=== PATIENT | male | born 1945 | race Caucasian/White ===

== ENCOUNTER → 2017-01-15 | Outpatient (CLI) | payer MEDICARE, OTHER ==
--- NOTE | 2017-01-15 12:40 | REP ---
REASON: Dyspnea. COMPARISON: None. Cardiomediastinal silhouette is within normal limits. Pleural angles are sharp. The frontal view of the chest shows no abnormality, however, seen only on the lateral view, there is a subtle nodular density seen superior to the anterior aspect of the diaphragmatic surfaces of the lungs measuring 3 cm difficult to evaluate by plain radiography. The osseous structures are within normal limits. IMPRESSION: Nodular density seen only on the lateral view as described above. The exact etiology is uncertain. It might represent a partial hiatal hernia, however, since there are no priors for comparison, CT examination of the chest is recommended. Signed by Jameel Abreu DO 01/15/2017 02:46 P
== END ==
LOC: M WUC 11:12
PROVIDERS: ATTEND Nurse Practitioner Adult Health
DX: R06.02 Shortness of breath (principal); R91.8 Other nonspecific abnormal finding of lung field

== ENCOUNTER → 2017-02-03 | Outpatient (REF) | payer MEDICARE, OTHER ==
[2017-02-03 18:24] LABS: ANION GAP 7 MEQ/L (8-16); BLOOD UREA NITROGEN 20 MG/DL (7-18); CALCIUM LEVEL 8.7 MG/DL (8.8-10.2); CARBON DIOXIDE LEVEL 35 MEQ/L (21-32); CHLORIDE LEVEL 98 MEQ/L (98-107); CREATININE FOR GFR 1.25 MG/DL (0.70-1.30); GLOMERULAR FILTRATION RATE > 60.0 (>42); GLUCOSE, FASTING 96 MG/DL (83-110); POTASSIUM SERUM 3.4 MEQ/L (3.5-5.1); SODIUM LEVEL 140 MEQ/L (136-145)
== END ==
LOC: M LABDRWCV 16:31
PROVIDERS: ATTEND Internal Medicine
DX: I10 Essential (primary) hypertension (principal)

== ENCOUNTER → 2017-02-05 | Outpatient (CLI) | payer MEDICARE, OTHER ==
[~2017-02-05] MED LIST: ISOVUE-370 76% 100ML VIAL (Q9967) As Ordered ONE
--- NOTE | 2017-02-05 17:23 | REP ---
CT CHEST WITH IV CONTRAST: TECHNIQUE: Axial contrast enhanced images from the thoracic inlet to the upper abdomen using 100 mL Isovue 370 intravenous contrast material with multiplanar reformations. FINDINGS: Scattered interstitial fibrotic changes are seen in the lungs without evidence of suspicious nodular opacity. No consolidating infiltrate is seen. The heart is not enlarged. Normal sized mediastinal and hilar lymph nodes are present. There are mild atherosclerotic calcifications of the thoracic aorta without aneurysm or dissection. There is a small hiatal hernia. This probably accounts for the density seen on the chest radiograph of 01/15/2017. The visualized upper abdominal structures are grossly unremarkable. IMPRESSION: No suspicious nodular opacity or adenopathy in the chest. Scattered interstitial fibrotic changes. Small hiatal hernia. Signed by Delon Mendez MD 02/08/2017 12:34 P
== END ==
LOC: M RAD 15:53
PROVIDERS: ATTEND Nurse Practitioner Adult Health
DX: R91.8 Other nonspecific abnormal finding of lung field (principal); R06.02 Shortness of breath; K44.9 Diaphragmatic hernia without obstruction or gangrene
CPT/HCPCS: 71260; Q9967

== ENCOUNTER → 2017-08-17 | Outpatient (REF) | payer MEDICARE, OTHER | LOC: M LAB REF 17:31 | PROVIDERS: ATTEND Internal Medicine | DX: R41.3 Other amnesia (principal) ==

== ENCOUNTER → 2017-09-27 | Outpatient (CLI) | payer MEDICARE, OTHER | LOC: M SLEEP 19:09 | DX: G47.419 Narcolepsy without cataplexy (principal) | CPT/HCPCS: 95811 ==

== ENCOUNTER → 2018-02-22 | Outpatient (CLI) | payer MEDICARE, OTHER | LOC: M WUC 12:10 | DX: R05 Cough (principal); K44.9 Diaphragmatic hernia without obstruction or gangrene | CPT/HCPCS: 71046 ==

== ENCOUNTER → 2018-08-18 | Outpatient (CLI) | payer MEDICARE, OTHER | LOC: M SMT 10:13 | DX: R06.02 Shortness of breath (principal) | CPT/HCPCS: 71046 ==

== ENCOUNTER 2018-12-24 13:26 | Observation (INO) | payer MEDICARE, OTHER ==
[~2018-12-24] VITALS: Ht 160 cm; Wt 80.4 kg
[2018-12-24] MEDS ORDERED: POTA1TAB14 PO (13:41)
[2018-12-24] MEDS ORDERED: PRAD150C6 PO (13:41)
[2018-12-24] MEDS ORDERED: DICL1GEL3 TOP (13:41)
[2018-12-24] MEDS ORDERED: MYRB25TA PO (13:41)
[2018-12-24] MEDS ORDERED: GLUCTAB6 PO (13:41)
[2018-12-24] MEDS ORDERED: SIMV40TA2 PO (13:41)
[2018-12-24] MEDS ORDERED: MODA100T13 PO (13:41)
[2018-12-24] MEDS ORDERED: [UNRECOGNIZED DRUG - OTHER] PO (13:41)
[2018-12-24] MEDS ORDERED: TORS20TA2 PO (13:41)
[2018-12-24] MEDS ORDERED: IPRATROPIUM 0.5MG/ALBUTEROL 2.5MG INH SOL UD 3ML (DUONEB)(J7620) NEB ONE ×2 (14:15→16:00)
[2018-12-24 14:40] LABS: ABG BASE EXCESS 2.7 (-2.0-2.0); ABG HCO3 25.3 MEQ/L (22.0-26.0); ABG O2 SATURATION 97.2 % (95.0-99.0); ABG PARTIAL PRESSURE CO2 32.9 mmHg (35.0-45.0); ABG PARTIAL PRESSURE O2 82.4 mmHg (75.0-100.0); ABG STANDARD HCO3 26.9 MEQ/L (22.0-26.0); ABG TOTAL CO2 26.3 MEQ/L (23.0-31.0); ABG pH (ARTERIAL) 7.503 UNITS (7.350-7.450)
[2018-12-24 14:43] LABS: BASO % 0.3 % (0.0-1.0); EOS # 0.1 10^3/uL (0.0-0.50); EOS % 0.8 % (0.0-3.0); LYMPH # 0.8 10^3/uL (1.5-4.5); LYMPH % 13.3 % (24.0-44.0); MEAN CORPUSCULAR HEMOGLOBIN 29.9 pg (27.0-33.0); MEAN CORPUSCULAR HGB CONC 33.3 g/dl (32.0-36.5); MEAN CORPUSCULAR VOLUME 89.8 fl (80.0-96.0); MONO # 1.1 10^3/uL (0.0-0.8); MONO % 17.6 % (0.0-5.0); NEUTROPHILS # 4.1 10^3/uL (1.8-7.7); NEUTROPHILS % 67.7 % (36.0-66.0); PLATELET COUNT, AUTOMATED 219 10^3/uL (150-450); RED BLOOD COUNT 5.01 10^6/uL (4.30-6.10); WHITE BLOOD COUNT 6.1 10^3/uL (4.0-10.0)
[2018-12-24 15:38] LABS: BLOOD UREA NITROGEN 20 MG/DL (7-18); CALCIUM LEVEL 8.4 MG/DL (8.8-10.2); CARBON DIOXIDE LEVEL 28 MEQ/L (21-32); CHLORIDE LEVEL 101 MEQ/L (98-107); CPK CREATINE PHOSPHOKINASE 130 U/L (39-308); CREATININE FOR GFR 1.25 MG/DL (0.70-1.30); GLOMERULAR FILTRATION RATE > 60.0 (>42); GLUCOSE, FASTING 90 MG/DL (70-100); MB/CK RELATIVE INDEX 1.53 (< OR =4); NT-PRO BNP 166 PG/ML (<125); POTASSIUM SERUM 4.2 MEQ/L (3.5-5.1); SODIUM LEVEL 137 MEQ/L (136-145); THYROID STIMULATING HORMONE 0.726 uIU/ML (0.358-3.740); TROPONIN I < 0.02 NG/ML (< 0.10)
[2018-12-24] MEDS ORDERED: OSELTAMIVIR PHOSPHATE 75 MG CAP (TAMIFLU) PO ONE (18:15)
[2018-12-24 18:38] VITALS: O2SAT 84
[2018-12-24] MEDS: IPRATROPIUM 0.5MG/ALBUTEROL 2.5MG INH SOL UD 3ML (DUONEB)(J7620) NEB SCH ×2 (18:40→18:49)
[2018-12-24] MEDS ORDERED: dexameTHASONE 20 MG/5 ML VIAL (J1100) IV ONE (18:45)
[2018-12-24] MEDS ORDERED: SM V PO (19:41)
[2018-12-24] MEDS ORDERED: [UNRECOGNIZED DRUG - CODE] PO (19:41)
[2018-12-24] MEDS ORDERED: APAP325T4 PO (19:44)
[2018-12-24] MEDS ORDERED: AREDS EYE VITAMINS PO (19:44)
[2018-12-24] MEDS ORDERED: CALC600T36 PO (19:44)
[2018-12-24] MEDS ORDERED: SIMVASTATIN 40 MG TAB PO SCH (21:00)
[2018-12-24] MEDS ORDERED: ACETAMINOPHEN TAB 650MG DOSE (2X325MG) PO PRN (21:15)
[2018-12-24] MEDS ORDERED: MOM 30ML SUSPENSION UDC PO PRN (21:15)
[2018-12-24 22:15] VITALS: BP 124/54
[2018-12-24] MEDS: DABIGATRAN ETEXILATE 75 MG CAP (PRADAXA) PO SCH (23:00)
[2018-12-24] MEDS: DEXTROMETHORPHAN 60MG/10ML SUSP 90ML BTL(DELSYM) PO SCH (23:01)
--- NOTE | 2018-12-25 04:53 | HPEPDOC ---
General Date of Admission Dec 24, 2018 at 20:19 Primary Care Physician: Jr Mason Collins Other Providers Neurologist: Dr. Lopez Swimming Coach: Dr. Conner [facility] in [place] Attending Physician: PETER MORRISON MD Chief Complaint The patient is a 72-year-old male admitted with a reason for visit of Influenza A. History of Present Illness 72-year-old male presents to the ER for 2 days of fever, chills, dry cough, generalized weakness. Temperature rechecked at home was 99.3. He has associated rhinorrhea, and sinus congestion. Denies any sick contacts, no changes, travel. He has been taking Tylenol at home with minimal relief. In the ER, he was administered DuoNeb 3, Decadron, and 1 dose of Tamiflu after his respiratory panel was positive for influenza A. Of note his ABG reveals 7.503/32.9/25.3. He'll be admitted for positive flu, continued weakness and dyspnea. Home Medications Scheduled Acetaminophen (Acetaminophen) 325 Mg Tablet, 650 MG PO BID, (Reported) Ascorbic Acid (Vitamin C) 500 Mg Tablet.er, 500 MG PO DAILY, (Reported) Calcium Carbonate (Calcium) 600 Mg Tablet, 600 MG PO DAILY, (Reported) Dabigatran Etexilate Mesylate (Pradaxa) 150 Mg Capsule, 150 MG PO BID, (Reported) Gluc Mcknight/Chondro Mcknight A/Vit C/Mn (Glucosamine Chondroitin Tab) 1 Each Tablet, 2 TAB PO DAILY, (Reported) Mirabegron (Myrbetriq) 25 Mg Tab.er.24h, 25 MG PO QHS, (Reported) Modafinil (Modafinil) 100 Mg Tablet, 100 MG PO BID, (Reported) TAKES 0800 AND 1200 Mv-Mins/Folic/Lycopene/Ginkgo (One-A-Day Men's 50 Plus Tablet) 1 Each Tablet, 1 TAB PO DAILY, (Reported) Potassium Chloride (Potassium Chloride) 20 Meq Tablet.er, 20 MEQ PO DAILY, (Reported) Simvastatin (Simvastatin) 40 Mg Tablet, 40 MG PO QHS, (Reported) Torsemide (Torsemide) 20 Mg Tablet, 20 MG PO DAILY, (Reported) [Areds 2 Eye Vitamins] , 1 TAB PO BID, (Reported) Scheduled PRN Diclofenac Sodium (Diclofenac Sodium) 1% 100GM Gel..gram., 2 GRAMS TOP BID PRN for PAIN, (Reported) APPLY 2 TO 4 GRAMS TO BACK AND KNEES Allergies Coded Allergies: No Known Allergies (Unverified , 12/24/18) Past Medical History Medical History Stroke 2012 without residual deficits Paroxysmal Afib Hyperlipidemia Overactive bladder Narcolepsy JULIETTE on CPAP Chronic lower extremity edema Spinal stenosis Degenerative disc disease Surgical History Bilateral cataracts Family History Father passed of brain tumor Mother passed of old age Social History Quit tobacco 30 years ago, smoked 1 PPD for 15 years Denies alcohol and illicit substances Lives at home with . 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 Denies weight loss ENT: Denies headaches, ear/eye pain, dysphagia Skin: Denies any rashes or lesions Pulmonary: Admits dry cough and short of breath, denies wheezing Cardiac: Denies chest pain, palpitations. Admits chronic LE edema GI: Denies nausea, vomiting, abdominal pain, changes in bowel : Admits overactive bladder MSK: Admits diffuse body aches and chronic low back pain Neurologic: Denies new numbness/tingling Physical Examination Other physical findings General exam: Alert and cooperative, A&O 3, NAD Eye exam: PERRLA, EOMI ENT: Atraumatic, normocephalic, dry membranes moist, no pharyngeal exudates. Sinus congestion and rhinorrhea present Neck: Supple, no JVD Cardiac: RRR, normal S1 & S2, no murmurs Respiratory: CTAB, good air exchange, no wheezing, rhonchi, or rales Abdomen: normoactive bowel sounds, soft, nontender, nondistended Extremity: 2+ radial pulses, trace edema b/l LE. No cyanosis or tenderness Skin: [place], warm, dry, no visible rash or lesions Neuro: Strength 5/5 x4, normal tone, normal speech, CN III-XII intact Psych: Normal mood and affect Vital Signs Vital Signs Date Time Temp Pulse Resp B/P (MAP) Pulse Ox O2 Delivery O2 Flow Rate FiO2 12/24/18 22:15 99.4 85 20 124/54 (77) 88 12/24/18 21:31 Room Air Laboratory Data Labs 24H Laboratory Tests 2 12/24/18 14:19: Blood Gas Bicarbonate Standard 26.9H, Arterial Blood pH 7.503H, Arterial Blood Partial Pressure CO2 32.9L, Arterial Blood Partial Pressure O2 82.4, Arterial Blood Total CO2 26.3, Arterial Blood HCO3 25.3, Arterial Blood Base Excess 2.7H, Arterial Blood Oxygen Saturation 97.2 12/24/18 14:27: Immature Granulocyte % (Auto) 0.3, White Blood Count 6.1, Red Blood Count 5.01, Hemoglobin 15.0, Hematocrit 45.0, Mean Corpuscular Volume 89.8, Mean Corpuscular Hemoglobin 29.9, Mean Corpuscular Hemoglobin Concent 33.3, Red Cell Distribution Width 12.3, Platelet Count 219, Neutrophils (%) (Auto) 67.7H, Lymphocytes (%) (Auto) 13.3L, Monocytes (%) (Auto) 17.6H, Eosinophils (%) (Auto) 0.8, Basophils (%) (Auto) 0.3, Neutrophils # (Auto) 4.1, Lymphocytes # (Auto) 0.8L, Monocytes # (Auto) 1.1H, Eosinophils # (Auto) 0.1, Basophils # (Auto) 0.0, Nucleated Red Blood Cells % (auto) 0.0, Anion Gap 8, Glomerular Filtration Rate > 60.0, Lactic Acid Level 1.5, Blood Urea Nitrogen 20H, Creatinine 1.25, Sodium Level 137, Potassium Level 4.2, Chloride Level 101, Carbon Dioxide Level 28, Calcium Level 8.4L, Total Creatine Kinase 130, Creatine Kinase MB 2.0, Creatine Kinase MB Relative Index 1.53, Troponin I < 0.02, EF-Nqn-O-Type Natriuretic Peptide 166H, Thyroid Stimulating Hormone (TSH) 0.726 CBC/BMP Laboratory Tests 12/24/18 14:27 Red Blood Count 5.01, Mean Corpuscular Volume 89.8, Mean Corpuscular Hemoglobin 29.9, Mean Corpuscular Hemoglobin Concent 33.3, Red Cell Distribution Width 12.3, Neutrophils (%) (Auto) 67.7 H, Lymphocytes (%) (Auto) 13.3 L, Monocytes (%) (Auto) 17.6 H, Eosinophils (%) (Auto) 0.8, Basophils (%) (Auto) 0.3, Neutrophils # (Auto) 4.1, Lymphocytes # (Auto) 0.8 L, Monocytes # (Auto) 1.1 H, Eosinophils # (Auto) 0.1, Basophils # (Auto) 0.0, Calcium Level 8.4 L, Total Creatine Kinase 130 Microbiology Microbiology 12/24/18 Blood Culture, Received Pending 12/24/18 Blood Culture, Received Pending 12/24/18 Respiratory Virus Panel (PCR) ([facility]) - Final, Complete Influenza A H3 Assessment/Plan Influenza A Fever, chills, dyspnea, cough, weakness for 2 days ABG reveals respiratory alkalosis s/p 1 dose Tamiflu in the ER. Continue for total 5 days Supportive care with antitussives Droplet precautions, encourage incentive spirometry Euvolemic on exam. BNP unremarkable. Vitals otherwise stable. Not requiring any supplemental oxygen. Monitor Normal white count. Blood cultures pending Paroxysmal A. fib Rate controlled without any meds. In NSR on admission Continue home Pradaxa Stroke 2012, Hyperlipidemia without residual deficits Continue home statin Overactive bladder may bring in home Myrbetriq Narcolepsy Continue home modafinil JULIETTE on CPAP Follow JULIETTE protocol and continue CPAP at night Chronic lower extremity edema Patient denies any previous cardiac history Trace edema on admission, euvolemic otherwise Continue home torsemide Spinal stenosis/Degenerative disc disease continue Tylenol DVT PPX: Chronically on Pradaxa DIET: Low-fat low-cholesterol DISPO: admit to hospitalist service. PT ordered. Plan / VTE VTE Prophylaxis Ordered?: Yes GME ATTESTATION GME ATTESTATION My faculty preceptor for this patient encounter was physically present during the encounter and was fully available. All aspects of the patient interview, examination, medical decision making process, and medical care plan development were reviewed and approved by the faculty preceptor. The faculty preceptor is aware and concurs with the plan as stated in the body of this note and will attest to such by his/her cosignature. CYDNEY WORTHINGTON DO Dec 25, 2018 04:53
[2018-12-25 06:00] VITALS: BP 163/95
[2018-12-25 06:29] LABS: HEMATOCRIT 43.2 % (42.0-52.0); HEMOGLOBIN 14.3 g/dl (13.5-17.5); MEAN CORPUSCULAR HEMOGLOBIN 29.6 pg (27.0-33.0); MEAN CORPUSCULAR HGB CONC 33.1 g/dl (32.0-36.5); MEAN CORPUSCULAR VOLUME 89.4 fl (80.0-96.0); PLATELET COUNT, AUTOMATED 213 10^3/uL (150-450); RED BLOOD COUNT 4.83 10^6/uL (4.30-6.10); WHITE BLOOD COUNT 4.4 10^3/uL (4.0-10.0)
[2018-12-25 06:45] LABS: CALCIUM LEVEL 8.7 MG/DL (8.8-10.2); CREATININE FOR GFR 1.26 MG/DL (0.70-1.30); GLOMERULAR FILTRATION RATE 59.7 (>42); MAGNESIUM LEVEL 2.2 MG/DL (1.8-2.4); POTASSIUM SERUM 3.8 MEQ/L (3.5-5.1)
[2018-12-25] MEDS ORDERED: MODAFINIL 100 MG TABLET PO SCH (08:00)
[2018-12-25] MEDS ORDERED: OSELTAMIVIR PHOSPHATE 75 MG CAP (TAMIFLU) PO SCH ×2 (09:00)
[2018-12-25] MEDS ORDERED: TORSEMIDE 20 MG TAB PO SCH (09:00)
--- NOTE | 2018-12-25 09:17 | REP ---
Portable chest, 02:13 p.m., single AP view, the patient is upright: Comparison is 08/18/2018. The lung salazar are clear. The cardiac size is normal. The ambreen, mediastinum, and skeletal structures are unremarkable. Impression: Negative portable chest. There is no interval change. Electronically Signed by Delon Gil MD 12/24/2018 02:46 P
[2018-12-25] MEDS: DABIGATRAN ETEXILATE 75 MG CAP (PRADAXA) PO SCH (09:18)
[2018-12-25] MEDS: DEXTROMETHORPHAN 60MG/10ML SUSP 90ML BTL(DELSYM) PO SCH (09:19)
[2018-12-25] MEDS ORDERED: OSEL75CA2 PO (10:45)
--- NOTE | 2018-12-25 10:50 | DS.PDOC ---
Discharge Summary General Date of Admission Dec 24, 2018 at 20:19 Date of Discharge 12/25/18 Attending Physician: ROSANGELA DÍAZ MD Discharge Summary PROCEDURES PERFORMED DURING STAY: [None]. ADMITTING DIAGNOSES: 1. Influenza A. 2. Afib 3. hx CVA 4. Overactive bladder 5. Narcolepsy 6. JULIETTE on CPAP DISCHARGE DIAGNOSES: 1. Influenza A. 2. Afib 3. hx CVA 4. Overactive bladder 5. Narcolepsy 6. JULIETTE on CPAP COMPLICATIONS/CHIEF COMPLAINT: Influenza A. HISTORY OF PRESENT ILLNESS: "72-year-old male presents to the ER for 2 days of fever, chills, dry cough, generalized weakness. Temperature rechecked at home was 99.3. He has associated rhinorrhea, and sinus congestion. Denies any sick contacts, no changes, travel. He has been taking Tylenol at home with minimal relief. In the ER, he was administered DuoNeb 3, Decadron, and 1 dose of Tamiflu after his respiratory panel was positive for influenza A. Of note his ABG reveals 7.503/32.9/25.3. He'll be admitted for positive flu, continued weakness and dyspnea." HOSPITAL COURSE: Patient is a 72-year-old male resented to ER with complaints of 2 days symptoms of fever, chills, cough and generalized weakness yesterday evening. In ER, patient was found to the positive for influenza a and was started on Tamiflu and supportive measures. Patient was admitted overnight and reported feeling very well this morning, denies any complaints and states that he feels much better and would like to go home today. He reports no longer having any symptoms and he came in with and does not feel that he still needs to stay in hospital. Will discharge patient to follow-up with PCP within one week and completed course of Tamiflu as outpatient. DISCHARGE MEDICATIONS: Please see below. ALLERGIES: Please see below. PHYSICAL EXAMINATION ON DISCHARGE: VITAL SIGNS: Please see below. General: No acute distress, Alert Eyes: Normal sclera, EOMI, LINDA HENT: Atraumatic, neck supple, moist mucous membranes Cardiovascular: Normal rate, normal rhythm. No murmurs appreciated. Pulmonary: Clear to auscultation b/l, no wheezing GI: Soft, nontender, nondistended Skin: Warm and dry Neuro: CN grossly intact. No focal deficits. Strengths equal b/l. Psych: oriented x 3 LABORATORY DATA: Please see below. IMAGING: CXR- Impression: Negative portable chest. There is no interval change. ACTIVITY: [As tolerated]. DIET: Regular diet DISCHARGE PLAN: f/u PCP within 1 week. Complete course of Tamifilu. DISPOSITION: Home. DISCHARGE INSTRUCTIONS: f/u PCP within 1 week. Complete course of Tamifilu. ITEMS TO FOLLOWUP ON ON OUTPATIENT: 1. None DISCHARGE CONDITION: [Stable]. TIME SPENT ON DISCHARGE: Greater than 30 minutes. Vital Signs/I&Os Vital Signs Date Time Temp Pulse Resp B/P (MAP) Pulse Ox O2 Delivery O2 Flow Rate FiO2 12/25/18 06:00 99.4 87 20 163/95 (117) 91 2.0 12/24/18 21:31 Room Air I&O- Last 24 Hours up to 6 AM 12/25/18 05:59 Intake Total 0 ml Output Total 300 ml Balance -300 ml Laboratory Data Labs 24H Laboratory Tests 2 12/24/18 14:19: Blood Gas Bicarbonate Standard 26.9H, Arterial Blood pH 7.503H, Arterial Blood Partial Pressure CO2 32.9L, Arterial Blood Partial Pressure O2 82.4, Arterial Blood Total CO2 26.3, Arterial Blood HCO3 25.3, Arterial Blood Base Excess 2.7H, Arterial Blood Oxygen Saturation 97.2 12/24/18 14:27: Immature Granulocyte % (Auto) 0.3, White Blood Count 6.1, Red Blood Count 5.01, Hemoglobin 15.0, Hematocrit 45.0, Mean Corpuscular Volume 89.8, Mean Corpuscular Hemoglobin 29.9, Mean Corpuscular Hemoglobin Concent 33.3, Red Cell Distribution Width 12.3, Platelet Count 219, Neutrophils (%) (Auto) 67.7H, Lymphocytes (%) (Auto) 13.3L, Monocytes (%) (Auto) 17.6H, Eosinophils (%) (Auto) 0.8, Basophils (%) (Auto) 0.3, Neutrophils # (Auto) 4.1, Lymphocytes # (Auto) 0.8L, Monocytes # (Auto) 1.1H, Eosinophils # (Auto) 0.1, Basophils # (Auto) 0.0, Nucleated Red Blood Cells % (auto) 0.0, Anion Gap 8, Glomerular Filtration Rate > 60.0, Lactic Acid Level 1.5, Blood Urea Nitrogen 20H, Creatinine 1.25, Sodium Level 137, Potassium Level 4.2, Chloride Level 101, Carbon Dioxide Level 28, Calcium Level 8.4L, Total Creatine Kinase 130, Creatine Kinase MB 2.0, Creatine Kinase MB Relative Index 1.53, Troponin I < 0.02, LP-Cnu-P-Type Natriuretic Peptide 166H, Thyroid Stimulating Hormone (TSH) 0.726 12/25/18 06:08: Nucleated Red Blood Cells % (auto) 0.0, Anion Gap 9, Glomerular Filtration Rate 59.7, Blood Urea Nitrogen 22H, Creatinine 1.26, Sodium Level 138, Potassium Level 3.8, Chloride Level 103, Carbon Dioxide Level 26, Calcium Level 8.7L, Magnesium Level 2.2 CBC/BMP Laboratory Tests 12/24/18 14:27 Red Blood Count 5.01, Mean Corpuscular Volume 89.8, Mean Corpuscular Hemoglobin 29.9, Mean Corpuscular Hemoglobin Concent 33.3, Red Cell Distribution Width 12.3, Neutrophils (%) (Auto) 67.7 H, Lymphocytes (%) (Auto) 13.3 L, Monocytes (%) (Auto) 17.6 H, Eosinophils (%) (Auto) 0.8, Basophils (%) (Auto) 0.3, Neutrophils # (Auto) 4.1, Lymphocytes # (Auto) 0.8 L, Monocytes # (Auto) 1.1 H, Eosinophils # (Auto) 0.1, Basophils # (Auto) 0.0, Calcium Level 8.4 L, Total Creatine Kinase 130 12/25/18 06:08 Red Blood Count 4.83, Mean Corpuscular Volume 89.4, Mean Corpuscular Hemoglobin 29.6, Mean Corpuscular Hemoglobin Concent 33.1, Red Cell Distribution Width 12.3, Calcium Level 8.7 L Microbiology Microbiology 12/24/18 Blood Culture, Received Pending 12/24/18 Blood Culture, Received Pending 12/24/18 Respiratory Virus Panel (PCR) ([facility]) - Final, Complete Influenza A H3 Discharge Medications Scheduled Acetaminophen (Acetaminophen) 325 Mg Tablet, 650 MG PO BID, (Reported) Ascorbic Acid (Vitamin C) 500 Mg Tablet.er, 500 MG PO DAILY, (Reported) Calcium Carbonate (Calcium) 600 Mg Tablet, 600 MG PO DAILY, (Reported) Dabigatran Etexilate Mesylate (Pradaxa) 150 Mg Capsule, 150 MG PO BID, (Reported) Gluc Mcknight/Chondro Mcknight A/Vit C/Mn (Glucosamine Chondroitin Tab) 1 Each Tablet, 2 TAB PO DAILY, (Reported) Mirabegron (Myrbetriq) 25 Mg Tab.er.24h, 25 MG PO QHS, (Reported) Modafinil (Modafinil) 100 Mg Tablet, 100 MG PO BID, (Reported) TAKES 0800 AND 1200 Mv-Mins/Folic/Lycopene/Ginkgo (One-A-Day Men's 50 Plus Tablet) 1 Each Tablet, 1 TAB PO DAILY, (Reported) Oseltamivir Phosphate (Oseltamivir Phosphate) 75 Mg Capsule, 75 MG PO BID Potassium Chloride (Potassium Chloride) 20 Meq Tablet.er, 20 MEQ PO DAILY, (Reported) Simvastatin (Simvastatin) 40 Mg Tablet, 40 MG PO QHS, (Reported) Torsemide (Torsemide) 20 Mg Tablet, 20 MG PO DAILY, (Reported) [Areds 2 Eye Vitamins] , 1 TAB PO BID, (Reported) Scheduled PRN Diclofenac Sodium (Diclofenac Sodium) 1% 100GM Gel..gram., 2 GRAMS TOP BID PRN for PAIN, (Reported) APPLY 2 TO 4 GRAMS TO BACK AND KNEES Allergies Coded Allergies: No Known Allergies (Unverified , 12/24/18) ROSANGELA DÍAZ MD Dec 25, 2018 10:50
--- NOTE | 2018-12-25 20:48 | ECGEPIP ---
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
== END 2018-12-25 11:24 | disposition home or self-care (01) ==
LOC: M ED 13:26 → M ED INP 20:19 → M MSPAV 22:15
PROVIDERS: ADMIT Internal Medicine; ATTEND Internal Medicine
DX: J10.1 Influenza due to other identified influenza virus with other respiratory manifestations (principal); I48.0 Paroxysmal atrial fibrillation; Z86.73 Personal history of transient ischemic attack (TIA), and cerebral infarction without residual deficits; N32.81 Overactive bladder; G47.411 Narcolepsy with cataplexy; G47.33 Obstructive sleep apnea (adult) (pediatric); E78.49 Other hyperlipidemia; M48.061 Spinal stenosis, lumbar region without neurogenic claudication; R60.0 Localized edema; Z79.899 Other long term (current) drug therapy
CPT/HCPCS: 36415; 36600; 71045; 80048; 82550; 82553; 82803; 83605; 83735; 83880; 84443; 84484; 85025; 85027; 87040; 87486; 87581; 87633; 87798; 93005; 93041; 94640; 96374; 97161; 99285; G0378; J1100

== ENCOUNTER → 2019-08-08 | Outpatient (CLI) | payer MEDICARE, OTHER ==
[~2019-08-08] MED LIST changes: +APAP325T4 PO; +AREDS EYE VITAMINS PO; +CALC600T36 PO; +DICL1GEL3 TOP; +FLOM0.4C39 PO; +GLUCTAB6 PO; -ISOVUE-370 76% 100ML VIAL (Q9967) As Ordered ONE; +LEXA1TAB PO; +MODA100T13 PO; +MYRB25TA PO; +OSEL75CA2 PO; +POTA1TAB14 PO; +PRAD150C6 PO; +SIMV40TA20 PO; +SM V PO; +TORS20TA2 PO; +[UNRECOGNIZED DRUG - CODE] PO; +[UNRECOGNIZED DRUG - OTHER] PO
== END ==
LOC: M LAB 13:20
PROVIDERS: ATTEND Nurse Practitioner
DX: N40.1 Benign prostatic hyperplasia with lower urinary tract symptoms (principal)

== ENCOUNTER 2019-08-13 10:32 | Emergency (ER) | payer MEDICARE, OTHER ==
[~2019-08-13] VITALS: Ht 167.6 cm; Wt 81.8 kg
[~2019-08-13 10:32] MED LIST changes: -FLOM0.4C39 PO; -LEXA1TAB PO
[2019-08-13 11:15] LABS: VENOUS HCO3 30.6 MEQ/L (23.0-27.0); VENOUS O2 SATURATION 55.5 % (60.0-80.0); VENOUS PARTIAL PRESSURE CO2 53.4 mmHg (38.0-50.0); VENOUS PARTIAL PRESSURE O2 27.8 mmHg (30.0-50.0); VENOUS PH 7.376 UNITS (7.330-7.430); VENOUS STANDARD HCO3 26.8 MEQ/L; VENOUS TOTAL CO2 32.2 MEQ/L (24.0-28.0)
[2019-08-13 11:19] LABS: BASO % 0.3 % (0.0-1.0); EOS # 0.2 10^3/uL (0.0-0.5); EOS % 2.7 % (0.0-3.0); HEMATOCRIT 46.3 % (42.0-52.0); HEMOGLOBIN 14.9 g/dl (13.5-17.5); LYMPH % 16.3 % (24.0-44.0); MEAN CORPUSCULAR HEMOGLOBIN 30.9 pg (27.0-33.0); MEAN CORPUSCULAR HGB CONC 32.2 g/dl (32.0-36.5); MEAN CORPUSCULAR VOLUME 96.1 fl (80.0-96.0); MONO # 0.7 10^3/uL (0.0-0.8); MONO % 10.9 % (0.0-5.0); NEUTROPHILS # 4.3 10^3/uL (1.5-8.5); NEUTROPHILS % 69.5 % (36.0-66.0); PLATELET COUNT, AUTOMATED 229 10^3/uL (150-450); RED BLOOD COUNT 4.82 10^6/uL (4.30-6.10); WHITE BLOOD COUNT 6.3 10^3/uL (4.0-10.0)
[2019-08-13 11:51] LABS: ALT/SGPT 44 U/L (12-78); BILIRUBIN,DIRECT 0.1 MG/DL (0.0-0.2); BILIRUBIN,TOTAL 0.5 MG/DL (0.2-1.0); BLOOD UREA NITROGEN 24 MG/DL (7-18); CALCIUM LEVEL 9.1 MG/DL (8.8-10.2); CARBON DIOXIDE LEVEL 31 MEQ/L (21-32); CHLORIDE LEVEL 105 MEQ/L (98-107); CK-MB VALUE MASS 3.2 NG/ML (<3.6); CPK CREATINE PHOSPHOKINASE 134 U/L (39-308); CREATININE FOR GFR 1.24 MG/DL (0.70-1.30); GLOMERULAR FILTRATION RATE > 60.0 (>42); GLUCOSE, FASTING 84 MG/DL (70-100); MB/CK RELATIVE INDEX 2.39 (< OR =4); POTASSIUM SERUM 4.4 MEQ/L (3.5-5.1); SODIUM LEVEL 143 MEQ/L (136-145); THYROID STIMULATING HORMONE 0.807 uIU/ML (0.358-3.740); TOTAL PROTEIN 7.2 GM/DL (6.4-8.2); TROPONIN I < 0.02 NG/ML (< 0.10)
[2019-08-13] MEDS ORDERED: LEXA1TAB PO (12:22)
[2019-08-13] MEDS ORDERED: FLOM0.4C39 PO (12:22)
--- NOTE | 2019-08-13 12:26 | REP ---
CT BRAIN WITHOUT CONTRAST: 08/13/2019. COMPARISON: MRI 08/14/2013. CLINICAL HISTORY: Altered mental status. FINDINGS: Soft-tissue and bone windows reviewed for each slice level. There is some progression of ventriculomegaly with the lateral ventricles now with a 49 mm bifrontal transverse diameter, 43 mm on the MR 6 years ago. There is no midline shift. There is no intraparenchymal hemorrhage. Third and fourth ventricles also seen with the proportionate size of those ventricles to the diffuse atrophy. That atrophy is mild to moderately severe with slight progression and is greatest in the temporal lobes with increased prominence of the sylvian fissure. However, there are is atrophy of the frontal, parietal, and temporal lobes, as well as occipital lobes to a lesser extent but still significant. Diffuse atrophy of the cortex without vascular territory infarct, intracranial hemorrhage, or extra-axial fluid collections. The us-white junction differentiation is maintained, but there are heterogeneous low attenuation white matter changes representing small-vessel ischemic disease. Basal ganglia were symmetric. Posterior fossa shows the brainstem intact. Cerebellum shows some atrophy but no mass or acute infarct. Basal cisterns are intact. Mastoids and visualized sinuses are clear. The calvarium and skull base show no fracture or focal lesion. Orbits seen in limited fashion but symmetric for those portions seen. IMPRESSION: 1. Ventriculomegaly slightly increased from the prior study of 2012 with proportionate diffuse cerebral atrophy. No midline shift, intra- or extra-axial hemorrhage, intraventricular hemorrhage, mass, or mass effect. No acute infarct. 2. Chronic small vessel white matter ischemic changes. 3. Skull base, calvarium, sinuses, and mastoids without acute findings. Electronically Signed by Tutu Bradford MD 08/13/2019 05:10 P
[2019-08-13 14:00] VITALS: BP 134/77
--- NOTE | 2019-08-14 16:41 | ECGEPIP ---
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
--- NOTE | 2019-08-14 16:52 | ED PDOC ---
Post-Departure Follow-Up dr lewis and dr pa faxed fomral report of ct head for fu Ciara Fowler MD Aug 14, 2019 16:52
== END 2019-08-13 14:20 | disposition home or self-care (01) ==
LOC: M ED 10:32
DX: F51.5 Nightmare disorder (principal); R40.4 Transient alteration of awareness; I48.91 Unspecified atrial fibrillation; E78.5 Hyperlipidemia, unspecified; Z86.73 Personal history of transient ischemic attack (TIA), and cerebral infarction without residual deficits; G47.33 Obstructive sleep apnea (adult) (pediatric); G47.419 Narcolepsy without cataplexy; M48.00 Spinal stenosis, site unspecified; Z87.891 Personal history of nicotine dependence; Z79.899 Other long term (current) drug therapy

== ENCOUNTER → 2020-02-12 | Outpatient (CLI) | payer MEDICARE, OTHER ==
[~2020-02-12] MED LIST changes: +FLOM0.4C39 PO; +LEXA1TAB PO
== END ==
LOC: M LAB 10:31
PROVIDERS: ATTEND Nurse Practitioner
DX: N40.1 Benign prostatic hyperplasia with lower urinary tract symptoms (principal)
CPT/HCPCS: 36415; G0103

== ENCOUNTER → 2020-04-09 | Outpatient (REF) | payer MEDICARE, OTHER ==
[2020-05-22 10:49] LABS: FOLATE > 24.0 NG/ML; VITAMIN B12 LEVEL 497 PG/ML
== END ==
LOC: M LAB REF 16:57
PROVIDERS: ATTEND Internal Medicine
DX: R41.81 Age-related cognitive decline (principal); Z86.73 Personal history of transient ischemic attack (TIA), and cerebral infarction without residual deficits

== ENCOUNTER → 2020-12-27 | Outpatient (CLI) | payer MEDICARE, OTHER ==
--- NOTE | 2020-12-27 10:12 | REP ---
INDICATION: OTHER SPECIFIED DISORDERS OF BRAIN. COMPARISON: Head CT 08/13/2019. TECHNIQUE: Axial CT images with multiplanar reformations. FINDINGS: No acute bleed or acute large vessel territorial infarct. The ventricular system is prominent. No extra-axial collections. When compared to prior study of 08/13/2019 the ventricular system may be increased in size. On prior study the transverse 3rd ventricle had measured approximately 12.2 mm today measures 13.2 mm. This may represent a measurement error of head position and/or slice acquisition. There appears to be diffuse volume loss with prominence of the sylvian fissures. IMPRESSION: No acute findings. Ventriculomegaly and questionable hydrocephalus. Ventriculomegaly is stable to slightly increased when compared to the prior study of 08/13/2019. <Electronically signed by Osvaldo Anders > 12/27/20 [id number]
== END ==
LOC: M RAD 09:25
PROVIDERS: ATTEND Neurological Surgery
DX: G93.89 Other specified disorders of brain (principal)

== ENCOUNTER → 2021-05-02 | Outpatient (CLI) | payer MEDICARE, OTHER ==
--- NOTE | 2021-05-04 11:46 | REPVR ---
PROCEDURE INFORMATION: Exam: MR Lumbar Spine Without Contrast Exam date and time: 05/02/2021 7:03 PM Age: 75 years old Clinical indication: Low back pain; Additional info: Lbp TECHNIQUE: Imaging protocol: Multiplanar magnetic resonance images of the lumbar spine without intravenous contrast. COMPARISON: No relevant prior studies available. FINDINGS: Vertebrae: There is a lumbar levo scoliotic curvature. There is 3 mm of grade 1 retrolisthesis of L2 with respect to L3. There is 4 mm of grade 1 retrolisthesis of L5 with respect to S1. There is severe multilevel intervertebral disc space loss, with endplate signal changes. There are multilevel hemangiomas extending into the L4 facets and posterior elements.. Spinal cord: The conus medullaris terminates at L1/2. The patient has a congenitally narrowed spinal canal. L1-L2: There is diffuse disc bulging. There is shqz-hc-afbnrwez facet and ligamentous hypertrophy. There is mild to moderate canal stenosis. There is mild right and moderate to severe left neural foraminal narrowing. L2-L3: There is a diffuse disc osteophyte complex/uncovering related to listhesis. There is aukt-uj-bymncwaa facet hypertrophy. There is moderate canal stenosis. There is moderate to severe right neural foraminal narrowing. L3-L4: There is a diffuse disc osteophyte complex. There is moderate facet hypertrophy. There is severe canal stenosis, with central clumping of nerve roots. There is severe right and moderate left neural foraminal narrowing. L4-L5: There is a diffuse disc bulge. There is moderate to severe facet hypertrophy asymmetric to the left. There is moderate canal stenosis. There is mild right and moderate left neural foraminal narrowing. L5-S1: There is a diffuse disc osteophyte complex/uncovering related to listhesis. There is moderate right and severe left facet hypertrophy. There is moderate right and severe left neural foraminal narrowing. Soft tissues: Unremarkable. IMPRESSION: Degenerative disc disease and spondylosis in a background of scoliosis and congenital narrowing of the spinal canal. Changes contribute to multilevel moderate to severe acquired canal stenosis and multilevel moderate to severe neural foraminal narrowing. Electronically signed by: Taylor Dean On 05/04/2021 11:46:13 AM
== END ==
LOC: M RAD 18:05
DX: M48.062 Spinal stenosis, lumbar region with neurogenic claudication (principal); M51.26 Other intervertebral disc displacement, lumbar region; Q67.5 Congenital deformity of spine

== ENCOUNTER → 2022-04-02 | Outpatient (CLI) | payer MEDICARE, OTHER ==
[~2022-04-02] MED LIST changes: -GLUCTAB6 PO; +GLUCTAB7 PO; -SM V PO; +[UNRECOGNIZED DRUG - CODE] PO
== END ==
LOC: M WUC 15:00
PROVIDERS: ATTEND Internal Medicine
DX: R06.02 Shortness of breath (principal)

== ENCOUNTER → 2022-05-08 | Outpatient (REF) | payer MEDICARE, OTHER | LOC: M LAB REF 16:05 | PROVIDERS: ATTEND Internal Medicine | DX: Z01.818 Encounter for other preprocedural examination (principal) ==

== ENCOUNTER 2022-05-29 01:13 | Emergency (ER) | payer MEDICARE, OTHER ==
[~2022-05-29] VITALS: Ht 160 cm; Wt 84.1 kg
[2022-05-29 01:14] VITALS: BP 139/70
[2022-05-29] MEDS ORDERED: MEMA10TA19 PO (01:38)
[2022-05-29] MEDS ORDERED: CARB25TA31 PO (01:38)
[2022-05-29] MEDS ORDERED: vitamin d3 PO (01:38)
[2022-05-29] MEDS ORDERED: ACET-645 PO (01:38)
[2022-05-29] MEDS ORDERED: DONE10TA90 PO (01:38)
[2022-05-29] MEDS ORDERED: CALC1CAP34 PO (01:38)
[2022-05-29] MEDS ORDERED: BACTDSTA PO (01:39)
== END 2022-05-29 03:10 | disposition home or self-care (01) ==
LOC: M ED 01:13
DX: T83.098A Other mechanical complication of other urinary catheter, initial encounter (principal); N31.9 Neuromuscular dysfunction of bladder, unspecified; Z79.899 Other long term (current) drug therapy

== ENCOUNTER 2022-05-29 11:04 | Emergency (ER) | payer MEDICARE, OTHER ==
[~2022-05-29] VITALS: Ht 160 cm; Wt 84.1 kg
[~2022-05-29 11:04] MED LIST changes: +ACET-645 PO; +BACTDSTA PO; +CALC1CAP34 PO; +CARB25TA31 PO; +DONE10TA90 PO; +MEMA10TA19 PO; +vitamin d3 PO
[2022-05-29] MEDS ORDERED: LIDOCAINE 2% 5ML JELLY UROJET TOP ONE (12:55)
[2022-05-29 13:58] VITALS: BP 129/65
== END 2022-05-29 13:58 | disposition home or self-care (01) ==
LOC: M ED 11:04
DX: R33.9 Retention of urine, unspecified (principal); N40.1 Benign prostatic hyperplasia with lower urinary tract symptoms; N47.2 Paraphimosis; I48.91 Unspecified atrial fibrillation; I50.9 Heart failure, unspecified; I10 Essential (primary) hypertension; E78.5 Hyperlipidemia, unspecified; Z86.73 Personal history of transient ischemic attack (TIA), and cerebral infarction without residual deficits; G47.33 Obstructive sleep apnea (adult) (pediatric); Z87.891 Personal history of nicotine dependence; Z79.899 Other long term (current) drug therapy

== ENCOUNTER 2022-10-01 01:10 | Inpatient (IN) | payer MEDICARE, OTHER ==
[~2022-10-01] VITALS: Ht 167.6 cm; Wt 84.1 kg
[2022-10-01 02:08] LABS: BASO % 0.2 % (0.0-1.0); HEMATOCRIT 43.8 % (42.0-52.0); HEMOGLOBIN 14.2 g/dl (13.5-17.5); LYMPH # 0.7 10^3/uL (1.5-5.0); LYMPH % 3.9 % (24.0-44.0); MEAN CORPUSCULAR HEMOGLOBIN 29.6 pg (27.0-33.0); MEAN CORPUSCULAR HGB CONC 32.4 g/dl (32.0-36.5); MEAN CORPUSCULAR VOLUME 91.4 fl (80.0-96.0); MONO % 9.7 % (2.0-8.0); NEUTROPHILS # 16.1 10^3/uL (1.5-8.5); NEUTROPHILS % 85.5 % (36.0-66.0); PLATELET COUNT, AUTOMATED 239 10^3/uL (150-450); RED BLOOD COUNT 4.79 10^6/uL (4.30-6.10); WHITE BLOOD COUNT 18.9 10^3/uL (4.0-10.0)
[2022-10-01 02:38] LABS: RSV AMPLIFICATION NEGATIVE (NEGATIVE)
[2022-10-01 02:44] LABS: ALBUMIN 3.8 G/DL (3.2-5.2); ALKALINE PHOSPHATASE 104 U/L (46-116); ALT/SGPT 21 U/L (7.0-40); AST/SGOT 38 U/L (<34); BILIRUBIN,DIRECT 0.1 MG/DL (<0.4); BILIRUBIN,TOTAL 0.6 MG/DL (0.3-1.2); BLOOD UREA NITROGEN 28 MG/DL (9-23); CALCIUM LEVEL 8.7 MG/DL (8.3-10.6); CARBON DIOXIDE LEVEL 24 MMOL/L (20-31); CHLORIDE LEVEL 99 MMOL/L (98-107); CREATININE FOR GFR 1.27 MG/DL (0.70-1.30); GLOMERULAR FILTRATION RATE 58.5 (>42); GLUCOSE, FASTING 143 MG/DL (74-106); SODIUM LEVEL 133 MMOL/L (136-145); TOTAL PROTEIN 7.2 G/DL (5.7-8.2)
[2022-10-01 02:47] LABS: THYROID STIMULATING HORMONE 1.126 uIU/ML (0.55-4.78)
[2022-10-01 02:58] LABS: MONO # 1.8 10^3/uL (0.0-0.8)
[2022-10-01 03:56] LABS: CK-MB VALUE MASS < 1.0 NG/ML (<3.6)
[2022-10-01 03:59] LABS: CPK CREATINE PHOSPHOKINASE 105 U/L (46-171); MB/CK RELATIVE INDEX 0.95 (< OR =4)
[2022-10-01] MEDS ORDERED: cefTRIAXone SOD 1 GM in D5W MINI-BAG PLUS 50 ML IV ONE (04:35)
[2022-10-01] MEDS ORDERED: NS 1,000 ML IV SCH (05:25)
[2022-10-01] MEDS ORDERED: ASCO500T PO (05:56)
[2022-10-01] MEDS ORDERED: CARB25TA9 PO (05:56)
[2022-10-01] MEDS ORDERED: ASPI-161 PO (05:56)
[2022-10-01] MEDS ORDERED: VENL-102 PO (05:56)
[2022-10-01] MEDS ORDERED: VITA200032 PO (05:56)
[2022-10-01] MEDS ORDERED: DONE5TAB82 PO (05:56)
[2022-10-01] MEDS ORDERED: VITMTA PO (05:56)
[2022-10-01] MEDS ORDERED: FLOM0.4C39 PO (05:56)
[2022-10-01] MEDS ORDERED: PRES10CA2 PO (05:56)
[2022-10-01] MEDS ORDERED: HOME MED LIST COMPLETE! XX SCH (06:00)
[2022-10-01] MEDS: SINEMET 25-100 MG TAB PO SCH ×3 (10:52→17:21)
[2022-10-01] MEDS: VENLAFAXINE **XR** 37.5 MG CAPSULE PO SCH (10:53)
[2022-10-01] MEDS: DONEPEZIL 5 MG TAB PO SCH (10:53)
[2022-10-01] MEDS: MEMANTINE 5MG TABLET (NAMENDA) PO SCH (10:53)
[2022-10-01] MEDS: DABIGATRAN ETEXILATE 75 MG CAP (PRADAXA) PO SCH ×2 (10:53→21:38)
[2022-10-01] MEDS: ASPIRIN 81MG ENTERIC TABLET PO SCH (10:54)
[2022-10-01] MEDS: POTASSIUM CHLORIDE 10MEQ SR TABLET PO SCH (10:54)
[2022-10-01] MEDS: TORSEMIDE 20 MG TAB PO SCH (10:54)
[2022-10-01 15:50] VITALS: BP 115/78
[2022-10-01] MEDS: cefTRIAXone SOD 2 GM in D5W MINI-BAG PLUS 50 ML IV SCH (17:21)
[2022-10-01 19:47] VITALS: BP 126/77
[2022-10-01] MEDS: TAMSULOSIN 0.4 MG CAP PO SCH (21:29)
[2022-10-01] MEDS: ACETAMINOPHEN TAB 650MG DOSE (2X325MG) PO PRN (21:29)
[2022-10-01] MEDS: SIMVASTATIN 40 MG TAB PO SCH (21:29)
[2022-10-02] MEDS ORDERED: cefTRIAXone SOD 1 GM in D5W MINI-BAG PLUS 50 ML IV SCH (06:00)
[2022-10-02 06:26] VITALS: BP 131/77
[2022-10-02 06:49] LABS: HEMATOCRIT 38.7 % (42.0-52.0); HEMOGLOBIN 12.4 g/dl (13.5-17.5); MEAN CORPUSCULAR HEMOGLOBIN 29.7 pg (27.0-33.0); MEAN CORPUSCULAR VOLUME 92.6 fl (80.0-96.0); PLATELET COUNT, AUTOMATED 209 10^3/uL (150-450); RED BLOOD COUNT 4.18 10^6/uL (4.30-6.10); WHITE BLOOD COUNT 14.9 10^3/uL (4.0-10.0)
[2022-10-02 07:20] LABS: BLOOD UREA NITROGEN 21 MG/DL (9-23); CALCIUM LEVEL 8.2 MG/DL (8.3-10.6); CARBON DIOXIDE LEVEL 27 MMOL/L (20-31); CHLORIDE LEVEL 100 MMOL/L (98-107); CREATININE FOR GFR 1.09 MG/DL (0.70-1.30); GLOMERULAR FILTRATION RATE > 60.0 (>42); GLUCOSE, FASTING 100 MG/DL (74-106); SODIUM LEVEL 134 MMOL/L (136-145)
[2022-10-02] MEDS: POTASSIUM CHLORIDE 10MEQ SR TABLET PO SCH (09:22)
[2022-10-02] MEDS: TORSEMIDE 20 MG TAB PO SCH (09:23)
[2022-10-02] MEDS: SINEMET 25-100 MG TAB PO SCH ×3 (09:23→18:16)
[2022-10-02] MEDS: DABIGATRAN ETEXILATE 75 MG CAP (PRADAXA) PO SCH ×2 (09:23→21:07)
[2022-10-02] MEDS: ASPIRIN 81MG ENTERIC TABLET PO SCH (09:23)
[2022-10-02] MEDS: MEMANTINE 5MG TABLET (NAMENDA) PO SCH (09:23)
[2022-10-02] MEDS: VENLAFAXINE **XR** 37.5 MG CAPSULE PO SCH (09:23)
[2022-10-02] MEDS: DONEPEZIL 5 MG TAB PO SCH (09:24)
[2022-10-02 14:00] VITALS: BP 131/72
[2022-10-02 15:14] LABS: ERYTHROCYTE SEDIMENTATION RATE 72 mm/hr (0-20)
[2022-10-02] MEDS: cefTRIAXone SOD 2 GM in D5W MINI-BAG PLUS 50 ML IV SCH (18:16)
[2022-10-02 20:50] VITALS: BP 136/72
[2022-10-02] MEDS: TAMSULOSIN 0.4 MG CAP PO SCH (21:06)
[2022-10-02] MEDS: SIMVASTATIN 40 MG TAB PO SCH (21:07)
[2022-10-02] MEDS: ACETAMINOPHEN TAB 650MG DOSE (2X325MG) PO PRN (21:14)
[2022-10-03 04:50] VITALS: BP 140/86
[2022-10-03] MEDS ORDERED: CHLORASEPTIC SPRAY MT PRN (05:40)
[2022-10-03 06:44] LABS: HEMOGLOBIN 13.1 g/dl (13.5-17.5); MEAN CORPUSCULAR HEMOGLOBIN 30.2 pg (27.0-33.0); MEAN CORPUSCULAR VOLUME 94.5 fl (80.0-96.0); PLATELET COUNT, AUTOMATED 187 10^3/uL (150-450); RED BLOOD COUNT 4.34 10^6/uL (4.30-6.10); WHITE BLOOD COUNT 8.6 10^3/uL (4.0-10.0)
[2022-10-03 07:10] LABS: BLOOD UREA NITROGEN 17 MG/DL (9-23); CALCIUM LEVEL 8.3 MG/DL (8.3-10.6); CARBON DIOXIDE LEVEL 27 MMOL/L (20-31); CHLORIDE LEVEL 102 MMOL/L (98-107); CREATININE FOR GFR 0.92 MG/DL (0.70-1.30); GLOMERULAR FILTRATION RATE > 60.0 (>42); GLUCOSE, FASTING 105 MG/DL (74-106); POTASSIUM SERUM 3.8 MMOL/L (3.5-5.1); SODIUM LEVEL 137 MMOL/L (136-145)
[2022-10-03] MEDS: VENLAFAXINE **XR** 37.5 MG CAPSULE PO SCH (09:59)
[2022-10-03] MEDS: ASPIRIN 81MG ENTERIC TABLET PO SCH (09:59)
[2022-10-03] MEDS: DABIGATRAN ETEXILATE 75 MG CAP (PRADAXA) PO SCH ×2 (09:59→20:32)
[2022-10-03] MEDS: DONEPEZIL 5 MG TAB PO SCH (09:59)
[2022-10-03] MEDS: SINEMET 25-100 MG TAB PO SCH ×3 (10:00→18:16)
[2022-10-03] MEDS: MEMANTINE 5MG TABLET (NAMENDA) PO SCH (10:00)
[2022-10-03] MEDS: TORSEMIDE 20 MG TAB PO SCH (10:00)
[2022-10-03] MEDS: POTASSIUM CHLORIDE 10MEQ SR TABLET PO SCH (10:00)
[2022-10-03 14:00] VITALS: BP 145/87
[2022-10-03 14:45] VITALS: BP 145/87
[2022-10-03] MEDS: predniSONE 20 MG TAB PO SCH (15:10)
[2022-10-03] MEDS: cefTRIAXone SOD 2 GM in D5W MINI-BAG PLUS 50 ML IV SCH (18:17)
[2022-10-03] MEDS: TAMSULOSIN 0.4 MG CAP PO SCH (20:32)
[2022-10-03] MEDS: SIMVASTATIN 40 MG TAB PO SCH (20:32)
[2022-10-03] MEDS: ACETAMINOPHEN TAB 650MG DOSE (2X325MG) PO PRN (20:33)
[2022-10-03 21:11] VITALS: BP 128/72
[2022-10-04 06:00] VITALS: BP 136/76
[2022-10-04 07:04] LABS: HEMATOCRIT 41.6 % (42.0-52.0); HEMOGLOBIN 13.3 g/dl (13.5-17.5); MEAN CORPUSCULAR HEMOGLOBIN 29.8 pg (27.0-33.0); MEAN CORPUSCULAR VOLUME 93.3 fl (80.0-96.0); PLATELET COUNT, AUTOMATED 243 10^3/uL (150-450); RED BLOOD COUNT 4.46 10^6/uL (4.30-6.10); WHITE BLOOD COUNT 7.6 10^3/uL (4.0-10.0)
[2022-10-04 07:38] LABS: BLOOD UREA NITROGEN 21 MG/DL (9-23); CALCIUM LEVEL 9.2 MG/DL (8.3-10.6); CARBON DIOXIDE LEVEL 28 MMOL/L (20-31); CHLORIDE LEVEL 104 MMOL/L (98-107); CREATININE FOR GFR 1.06 MG/DL (0.70-1.30); GLOMERULAR FILTRATION RATE > 60.0 (>42); GLUCOSE, FASTING 101 MG/DL (74-106); POTASSIUM SERUM 4.1 MMOL/L (3.5-5.1); SODIUM LEVEL 141 MMOL/L (136-145)
[2022-10-04] MEDS: DONEPEZIL 5 MG TAB PO SCH (09:39)
[2022-10-04] MEDS: MEMANTINE 5MG TABLET (NAMENDA) PO SCH (09:39)
[2022-10-04] MEDS: VENLAFAXINE **XR** 37.5 MG CAPSULE PO SCH (09:40)
[2022-10-04] MEDS: SINEMET 25-100 MG TAB PO SCH ×3 (09:40→18:57)
[2022-10-04] MEDS: predniSONE 20 MG TAB PO SCH (09:40)
[2022-10-04] MEDS: ASPIRIN 81MG ENTERIC TABLET PO SCH (09:40)
[2022-10-04] MEDS: DABIGATRAN ETEXILATE 75 MG CAP (PRADAXA) PO SCH ×2 (09:40→20:46)
[2022-10-04] MEDS: TORSEMIDE 20 MG TAB PO SCH (09:40)
[2022-10-04] MEDS: POTASSIUM CHLORIDE 10MEQ SR TABLET PO SCH (09:40)
[2022-10-04 09:49] VITALS: BP 148/79
[2022-10-04 14:00] VITALS: BP 138/77
[2022-10-04 20:44] VITALS: BP 138/74
[2022-10-04] MEDS: ACETAMINOPHEN TAB 650MG DOSE (2X325MG) PO PRN (20:46)
[2022-10-04] MEDS: SIMVASTATIN 40 MG TAB PO SCH (20:46)
[2022-10-04] MEDS: TAMSULOSIN 0.4 MG CAP PO SCH (20:46)
[2022-10-05 06:00] VITALS: BP 138/86
[2022-10-05 06:05] LABS: HEMATOCRIT 41.5 % (42.0-52.0); HEMOGLOBIN 13.2 g/dl (13.5-17.5); MEAN CORPUSCULAR HEMOGLOBIN 29.8 pg (27.0-33.0); MEAN CORPUSCULAR HGB CONC 31.8 g/dl (32.0-36.5); MEAN CORPUSCULAR VOLUME 93.7 fl (80.0-96.0); PLATELET COUNT, AUTOMATED 258 10^3/uL (150-450); RED BLOOD COUNT 4.43 10^6/uL (4.30-6.10); WHITE BLOOD COUNT 9.7 10^3/uL (4.0-10.0)
[2022-10-05 06:47] LABS: BLOOD UREA NITROGEN 28 MG/DL (9-23); CALCIUM LEVEL 9.1 MG/DL (8.3-10.6); CARBON DIOXIDE LEVEL 29 MMOL/L (20-31); CHLORIDE LEVEL 104 MMOL/L (98-107); CREATININE FOR GFR 1.04 MG/DL (0.70-1.30); GLOMERULAR FILTRATION RATE > 60.0 (>42); GLUCOSE, FASTING 90 MG/DL (74-106); POTASSIUM SERUM 4.2 MMOL/L (3.5-5.1); SODIUM LEVEL 140 MMOL/L (136-145)
[2022-10-05] MEDS: DONEPEZIL 5 MG TAB PO SCH (08:18)
[2022-10-05] MEDS: ASPIRIN 81MG ENTERIC TABLET PO SCH (08:18)
[2022-10-05] MEDS: MEMANTINE 5MG TABLET (NAMENDA) PO SCH (08:18)
[2022-10-05] MEDS: VENLAFAXINE **XR** 37.5 MG CAPSULE PO SCH (08:18)
[2022-10-05] MEDS: POTASSIUM CHLORIDE 10MEQ SR TABLET PO SCH (08:18)
[2022-10-05] MEDS: TORSEMIDE 20 MG TAB PO SCH (08:18)
[2022-10-05] MEDS: predniSONE 20 MG TAB PO SCH (08:18)
[2022-10-05] MEDS: DABIGATRAN ETEXILATE 75 MG CAP (PRADAXA) PO SCH (08:20)
[2022-10-05] MEDS ORDERED: PRED20TA PO (09:52)
[2022-10-05] MEDS: SINEMET 25-100 MG TAB PO SCH (10:01)
== END 2022-10-05 13:06 | DRG 547 ==
LOC: M ED 01:10 → M ED INP 05:23 → ENRESERV 14:28 → M MSPAV 15:55
PROVIDERS: ADMIT Family Medicine; ATTEND Family Medicine
DX: M35.3 Polymyalgia rheumatica (principal); G20 Parkinson's disease; M48.00 Spinal stenosis, site unspecified; I11.0 Hypertensive heart disease with heart failure; E78.5 Hyperlipidemia, unspecified; N40.0 Benign prostatic hyperplasia without lower urinary tract symptoms; R26.89 Other abnormalities of gait and mobility; F03.90 Unspecified dementia, unspecified severity, without behavioral disturbance, psychotic disturbance, mood disturbance, and anxiety; I48.0 Paroxysmal atrial fibrillation; G47.33 Obstructive sleep apnea (adult) (pediatric); Z86.73 Personal history of transient ischemic attack (TIA), and cerebral infarction without residual deficits; Z98.49 Cataract extraction status, unspecified eye; Z87.891 Personal history of nicotine dependence; Z20.822 Contact with and (suspected) exposure to COVID-19; Z79.82 Long term (current) use of aspirin; Z79.899 Other long term (current) drug therapy; I50.9 Heart failure, unspecified

== ENCOUNTER 2022-10-05 09:16 | Inpatient (IN) | payer MEDICARE, OTHER ==
[~2022-10-05] VITALS: Ht 165.1 cm; Wt 86.8 kg
[~2022-10-05 09:16] MED LIST changes: +ASCO500T PO; +ASPI-161 PO; +CARB25TA9 PO; +DONE5TAB82 PO; +PRES10CA2 PO; +VENL-102 PO; +VITA200032 PO; +VITMTA PO
[2022-10-05] MEDS ORDERED: PRED20TA PO (09:52)
[2022-10-05 13:15] VITALS: BP 159/86
[2022-10-05] MEDS ORDERED: ONDANSETRON 4MG TAB PO PRN (14:35)
[2022-10-05] MEDS ORDERED: BISACODYL 10MG SUPP PR PRN (14:35)
[2022-10-05 14:41] VITALS: BP 134/87
[2022-10-05] MEDS ORDERED: HOME MED LIST COMPLETE! XX SCH (15:15)
[2022-10-05] MEDS ORDERED: SINEMET 25-100 MG TAB PO SCH (16:00)
[2022-10-05] MEDS: REMEDY PHYTOPLEX Z-GUARD PASTE 113GM TUBE (FROM STOREROOM PRODUCT) TOP SCH ×2 (16:00→21:00)
[2022-10-05] MEDS ORDERED: SINEMET 25-100 MG TAB PO STA (16:02)
[2022-10-05] MEDS: guaiFENesin 200 MG TAB PO SCH ×2 (16:15→21:23)
[2022-10-05] MEDS: SUCRALFATE 1 GM TAB PO SCH (17:20)
[2022-10-05] MEDS: SINEMET 25-100 MG TAB PO SCH (18:57)
[2022-10-05 20:38] VITALS: BP 160/68
[2022-10-05] MEDS: DOCUSATE SODIUM 100MG CAPSULE PO SCH (21:00)
[2022-10-05] MEDS: PANTOPRAZOLE 40MG TAB (PROTONIX) PO SCH (21:00)
[2022-10-05] MEDS: SENNA 8.6 MG TAB (SENOKOT) PO SCH (21:00)
[2022-10-05] MEDS: COMBIVENT RESPIMAT 100-20MCG INHALER 4GM INH SCH (21:15)
[2022-10-05] MEDS: DABIGATRAN ETEXILATE 75 MG CAP (PRADAXA) PO SCH (21:21)
[2022-10-05] MEDS: TAMSULOSIN 0.4 MG CAP PO SCH (21:21)
[2022-10-05] MEDS: SIMVASTATIN 40 MG TAB PO SCH (21:22)
[2022-10-06 05:30] VITALS: BP 132/64
[2022-10-06 06:37] LABS: BASO # 0.1 10^3/uL (0.0-0.2); BASO % 0.4 % (0.0-1.0); EOS # 0.3 10^3/uL (0.0-0.5); EOS % 2.4 % (0.0-3.0); HEMATOCRIT 43.4 % (42.0-52.0); HEMOGLOBIN 13.7 g/dl (13.5-17.5); LYMPH # 2.1 10^3/uL (1.5-5.0); MEAN CORPUSCULAR HEMOGLOBIN 29.2 pg (27.0-33.0); MEAN CORPUSCULAR HGB CONC 31.6 g/dl (32.0-36.5); MEAN CORPUSCULAR VOLUME 92.5 fl (80.0-96.0); MONO # 1.1 10^3/uL (0.0-0.8); MONO % 10.1 % (2.0-8.0); NEUTROPHILS # 7.5 10^3/uL (1.5-8.5); NEUTROPHILS % 67.1 % (36.0-66.0); PLATELET COUNT, AUTOMATED 256 10^3/uL (150-450); RED BLOOD COUNT 4.69 10^6/uL (4.30-6.10); WHITE BLOOD COUNT 11.2 10^3/uL (4.0-10.0)
[2022-10-06 07:01] LABS: ALBUMIN 3.2 G/DL (3.2-5.2); ALKALINE PHOSPHATASE 89 U/L (46-116); ALT/SGPT 23 U/L (7.0-40); AST/SGOT 27 U/L (<34); BILIRUBIN,TOTAL 0.4 MG/DL (0.3-1.2); BLOOD UREA NITROGEN 30 MG/DL (9-23); CARBON DIOXIDE LEVEL 28 MMOL/L (20-31); CHLORIDE LEVEL 101 MMOL/L (98-107); CREATININE FOR GFR 0.98 MG/DL (0.70-1.30); GLOMERULAR FILTRATION RATE > 60.0 (>42); GLUCOSE, FASTING 83 MG/DL (74-106); POTASSIUM SERUM 3.9 MMOL/L (3.5-5.1); SODIUM LEVEL 138 MMOL/L (136-145); TOTAL PROTEIN 6.6 G/DL (5.7-8.2)
[2022-10-06] MEDS: SUCRALFATE 1 GM TAB PO SCH ×3 (07:30→17:12)
[2022-10-06] MEDS: COMBIVENT RESPIMAT 100-20MCG INHALER 4GM INH SCH ×3 (07:44→20:08)
[2022-10-06] MEDS: MEMANTINE 5MG TABLET (NAMENDA) PO SCH (08:23)
[2022-10-06] MEDS: guaiFENesin 200 MG TAB PO SCH ×3 (08:23→20:56)
[2022-10-06] MEDS: VENLAFAXINE **XR** 37.5 MG CAPSULE PO SCH (08:24)
[2022-10-06] MEDS: DABIGATRAN ETEXILATE 75 MG CAP (PRADAXA) PO SCH ×2 (08:24→20:56)
[2022-10-06] MEDS: DOCUSATE SODIUM 100MG CAPSULE PO SCH ×2 (08:24→21:00)
[2022-10-06] MEDS: POTASSIUM CHLORIDE 10MEQ SR TABLET PO SCH (08:24)
[2022-10-06] MEDS: predniSONE 20 MG TAB PO SCH (08:24)
[2022-10-06] MEDS: ASCORBIC ACID 500 MG TAB PO SCH (08:24)
[2022-10-06] MEDS: ASPIRIN 81MG ENTERIC TABLET PO SCH (08:24)
[2022-10-06] MEDS: DONEPEZIL 5 MG TAB PO SCH (08:24)
[2022-10-06] MEDS: TORSEMIDE 20 MG TAB PO SCH (08:24)
[2022-10-06] MEDS: REMEDY PHYTOPLEX Z-GUARD PASTE 113GM TUBE (FROM STOREROOM PRODUCT) TOP SCH ×3 (08:25→20:58)
[2022-10-06] MEDS: PANTOPRAZOLE 40MG TAB (PROTONIX) PO SCH ×2 (08:25→20:57)
[2022-10-06] MEDS ORDERED: SINEMET 25-100 MG TAB PO SCH (10:00)
[2022-10-06] MEDS: SINEMET 25-100 MG TAB PO SCH ×3 (10:02→18:31)
[2022-10-06 20:16] VITALS: BP 148/74
[2022-10-06] MEDS: TAMSULOSIN 0.4 MG CAP PO SCH (20:57)
[2022-10-06] MEDS: ACETAMINOPHEN TAB 650MG DOSE (2X325MG) PO PRN (20:57)
[2022-10-06] MEDS: SIMVASTATIN 40 MG TAB PO SCH (20:58)
[2022-10-06] MEDS: SENNA 8.6 MG TAB (SENOKOT) PO SCH (21:00)
[2022-10-07 05:57] VITALS: BP 133/72
[2022-10-07 06:20] LABS: BASO % 0.3 % (0.0-1.0); EOS # 0.2 10^3/uL (0.0-0.5); EOS % 1.9 % (0.0-3.0); HEMATOCRIT 43.1 % (42.0-52.0); HEMOGLOBIN 13.7 g/dl (13.5-17.5); LYMPH # 2.6 10^3/uL (1.5-5.0); LYMPH % 21.2 % (24.0-44.0); MEAN CORPUSCULAR HEMOGLOBIN 29.3 pg (27.0-33.0); MEAN CORPUSCULAR HGB CONC 31.8 g/dl (32.0-36.5); MEAN CORPUSCULAR VOLUME 92.3 fl (80.0-96.0); MONO # 1.2 10^3/uL (0.0-0.8); MONO % 9.6 % (2.0-8.0); NEUTROPHILS # 7.9 10^3/uL (1.5-8.5); NEUTROPHILS % 65.5 % (36.0-66.0); PLATELET COUNT, AUTOMATED 283 10^3/uL (150-450); RED BLOOD COUNT 4.67 10^6/uL (4.30-6.10); WHITE BLOOD COUNT 12.1 10^3/uL (4.0-10.0)
[2022-10-07 06:31] LABS: BLOOD UREA NITROGEN 29 MG/DL (9-23); CALCIUM LEVEL 8.9 MG/DL (8.3-10.6); CARBON DIOXIDE LEVEL 27 MMOL/L (20-31); CHLORIDE LEVEL 103 MMOL/L (98-107); CREATININE FOR GFR 1.03 MG/DL (0.70-1.30); GLOMERULAR FILTRATION RATE > 60.0 (>42); GLUCOSE, FASTING 82 MG/DL (74-106); POTASSIUM SERUM 4.1 MMOL/L (3.5-5.1); SODIUM LEVEL 139 MMOL/L (136-145)
[2022-10-07] MEDS: SUCRALFATE 1 GM TAB PO SCH ×3 (07:30→18:52)
[2022-10-07] MEDS: COMBIVENT RESPIMAT 100-20MCG INHALER 4GM INH SCH ×3 (07:52→20:33)
[2022-10-07] MEDS: guaiFENesin 200 MG TAB PO SCH ×3 (08:48→20:53)
[2022-10-07] MEDS: POTASSIUM CHLORIDE 10MEQ SR TABLET PO SCH (08:48)
[2022-10-07] MEDS: SINEMET 25-100 MG TAB PO SCH ×3 (08:48→16:16)
[2022-10-07] MEDS: ASPIRIN 81MG ENTERIC TABLET PO SCH (08:49)
[2022-10-07] MEDS: predniSONE 20 MG TAB PO SCH (08:49)
[2022-10-07] MEDS: DONEPEZIL 5 MG TAB PO SCH (08:49)
[2022-10-07] MEDS: MEMANTINE 5MG TABLET (NAMENDA) PO SCH (08:49)
[2022-10-07] MEDS: PANTOPRAZOLE 40MG TAB (PROTONIX) PO SCH ×2 (08:49→20:53)
[2022-10-07] MEDS: ASCORBIC ACID 500 MG TAB PO SCH (08:49)
[2022-10-07] MEDS: DOCUSATE SODIUM 100MG CAPSULE PO SCH ×2 (08:50→20:53)
[2022-10-07] MEDS: DABIGATRAN ETEXILATE 75 MG CAP (PRADAXA) PO SCH ×2 (08:51→20:53)
[2022-10-07] MEDS: VENLAFAXINE **XR** 37.5 MG CAPSULE PO SCH (08:51)
[2022-10-07] MEDS: REMEDY PHYTOPLEX Z-GUARD PASTE 113GM TUBE (FROM STOREROOM PRODUCT) TOP SCH ×3 (08:54→20:53)
[2022-10-07] MEDS: TORSEMIDE 20 MG TAB PO SCH (08:54)
[2022-10-07 14:00] VITALS: BP 132/81
[2022-10-07 20:00] VITALS: BP 137/82
[2022-10-07] MEDS: SENNA 8.6 MG TAB (SENOKOT) PO SCH (20:53)
[2022-10-07] MEDS: SIMVASTATIN 40 MG TAB PO SCH (20:53)
[2022-10-07] MEDS: TAMSULOSIN 0.4 MG CAP PO SCH (20:53)
[2022-10-08 06:00] VITALS: BP 138/58
[2022-10-08] MEDS: COMBIVENT RESPIMAT 100-20MCG INHALER 4GM INH SCH ×3 (07:44→20:07)
[2022-10-08] MEDS: SUCRALFATE 1 GM TAB PO SCH ×3 (08:00→16:31)
[2022-10-08] MEDS: SINEMET 25-100 MG TAB PO SCH ×3 (08:01→16:28)
[2022-10-08] MEDS: TORSEMIDE 20 MG TAB PO SCH (08:56)
[2022-10-08] MEDS: guaiFENesin 200 MG TAB PO SCH ×3 (08:56→20:46)
[2022-10-08] MEDS: predniSONE 20 MG TAB PO SCH (08:57)
[2022-10-08] MEDS: ASPIRIN 81MG ENTERIC TABLET PO SCH (08:57)
[2022-10-08] MEDS: DOCUSATE SODIUM 100MG CAPSULE PO SCH ×2 (08:57→21:00)
[2022-10-08] MEDS: VENLAFAXINE **XR** 37.5 MG CAPSULE PO SCH (08:57)
[2022-10-08] MEDS: DABIGATRAN ETEXILATE 75 MG CAP (PRADAXA) PO SCH ×2 (08:58→20:45)
[2022-10-08] MEDS: MEMANTINE 5MG TABLET (NAMENDA) PO SCH (08:58)
[2022-10-08] MEDS: ASCORBIC ACID 500 MG TAB PO SCH (08:58)
[2022-10-08] MEDS: DONEPEZIL 5 MG TAB PO SCH (08:58)
[2022-10-08] MEDS: PANTOPRAZOLE 40MG TAB (PROTONIX) PO SCH ×2 (08:58→20:45)
[2022-10-08] MEDS: POTASSIUM CHLORIDE 10MEQ SR TABLET PO SCH (09:00)
[2022-10-08] MEDS: REMEDY PHYTOPLEX Z-GUARD PASTE 113GM TUBE (FROM STOREROOM PRODUCT) TOP SCH ×3 (09:00→20:47)
[2022-10-08 14:00] VITALS: BP 129/67
[2022-10-08] MEDS: FLUTICASONE PROP 0.05% NASAL SPRAY 16 GM (FLONASE) NARES SCH ×2 (14:08→20:46)
[2022-10-08] MEDS: SODIUM CHLORIDE NASAL 0.65% SPRAY BTL (OCEAN) SCH ×2 (16:28→20:46)
[2022-10-08 20:00] VITALS: BP 125/69
[2022-10-08] MEDS: SIMVASTATIN 40 MG TAB PO SCH (20:46)
[2022-10-08] MEDS: TAMSULOSIN 0.4 MG CAP PO SCH (20:46)
[2022-10-08] MEDS: ACETAMINOPHEN TAB 650MG DOSE (2X325MG) PO PRN (20:47)
[2022-10-08] MEDS: SENNA 8.6 MG TAB (SENOKOT) PO SCH (21:00)
[2022-10-09 06:00] VITALS: BP 142/76
[2022-10-09] MEDS: COMBIVENT RESPIMAT 100-20MCG INHALER 4GM INH SCH ×3 (07:08→20:02)
[2022-10-09] MEDS: SINEMET 25-100 MG TAB PO SCH ×3 (07:26→17:59)
[2022-10-09] MEDS: SUCRALFATE 1 GM TAB PO SCH ×3 (07:26→18:00)
[2022-10-09] MEDS: POTASSIUM CHLORIDE 10MEQ SR TABLET PO SCH (10:06)
[2022-10-09] MEDS: VENLAFAXINE **XR** 37.5 MG CAPSULE PO SCH (10:06)
[2022-10-09] MEDS: MEMANTINE 5MG TABLET (NAMENDA) PO SCH (10:06)
[2022-10-09] MEDS: DABIGATRAN ETEXILATE 75 MG CAP (PRADAXA) PO SCH ×2 (10:06→20:52)
[2022-10-09] MEDS: PANTOPRAZOLE 40MG TAB (PROTONIX) PO SCH (10:07)
[2022-10-09] MEDS: DOCUSATE SODIUM 100MG CAPSULE PO SCH ×2 (10:07→20:52)
[2022-10-09] MEDS: ASPIRIN 81MG ENTERIC TABLET PO SCH (10:07)
[2022-10-09] MEDS: DONEPEZIL 5 MG TAB PO SCH (10:07)
[2022-10-09] MEDS: predniSONE 20 MG TAB PO SCH (10:07)
[2022-10-09] MEDS: TORSEMIDE 20 MG TAB PO SCH (10:07)
[2022-10-09] MEDS: ASCORBIC ACID 500 MG TAB PO SCH (10:07)
[2022-10-09] MEDS: SODIUM CHLORIDE NASAL 0.65% SPRAY BTL (OCEAN) SCH ×3 (10:08→20:51)
[2022-10-09] MEDS: REMEDY PHYTOPLEX Z-GUARD PASTE 113GM TUBE (FROM STOREROOM PRODUCT) TOP SCH ×3 (10:08→20:52)
[2022-10-09] MEDS: guaiFENesin 200 MG TAB PO SCH ×3 (10:08→20:51)
[2022-10-09] MEDS: FLUTICASONE PROP 0.05% NASAL SPRAY 16 GM (FLONASE) NARES SCH ×2 (10:09→20:51)
[2022-10-09 10:51] LABS: BASO % 0.4 % (0.0-1.0); EOS # 0.3 10^3/uL (0.0-0.5); EOS % 2.9 % (0.0-3.0); HEMATOCRIT 42.7 % (42.0-52.0); HEMOGLOBIN 13.7 g/dl (13.5-17.5); LYMPH # 1.9 10^3/uL (1.5-5.0); LYMPH % 18.2 % (24.0-44.0); MEAN CORPUSCULAR HEMOGLOBIN 29.7 pg (27.0-33.0); MEAN CORPUSCULAR HGB CONC 32.1 g/dl (32.0-36.5); MEAN CORPUSCULAR VOLUME 92.4 fl (80.0-96.0); MONO # 0.9 10^3/uL (0.0-0.8); MONO % 8.5 % (2.0-8.0); NEUTROPHILS # 7.2 10^3/uL (1.5-8.5); NEUTROPHILS % 68.5 % (36.0-66.0); PLATELET COUNT, AUTOMATED 304 10^3/uL (150-450); RED BLOOD COUNT 4.62 10^6/uL (4.30-6.10); WHITE BLOOD COUNT 10.5 10^3/uL (4.0-10.0)
[2022-10-09 11:22] LABS: BLOOD UREA NITROGEN 27 MG/DL (9-23); CALCIUM LEVEL 8.9 MG/DL (8.3-10.6); CARBON DIOXIDE LEVEL 26 MMOL/L (20-31); CHLORIDE LEVEL 102 MMOL/L (98-107); GLOMERULAR FILTRATION RATE > 60.0 (>42); GLUCOSE, FASTING 136 MG/DL (74-106); SODIUM LEVEL 137 MMOL/L (136-145)
[2022-10-09 14:00] VITALS: BP 138/76
[2022-10-09] MEDS ORDERED: LOPERAMIDE 2 MG CAPLET PO PRN (15:35)
[2022-10-09 20:45] VITALS: BP 106/68
[2022-10-09] MEDS: SIMVASTATIN 40 MG TAB PO SCH (20:52)
[2022-10-09] MEDS: SENNA 8.6 MG TAB (SENOKOT) PO SCH (20:52)
[2022-10-09] MEDS: TAMSULOSIN 0.4 MG CAP PO SCH (20:52)
[2022-10-10 05:08] VITALS: BP 135/75
[2022-10-10] MEDS: COMBIVENT RESPIMAT 100-20MCG INHALER 4GM INH SCH ×3 (07:20→20:44)
[2022-10-10] MEDS: SUCRALFATE 1 GM TAB PO SCH ×3 (08:42→16:39)
[2022-10-10] MEDS: ASPIRIN 81MG ENTERIC TABLET PO SCH (08:42)
[2022-10-10] MEDS: guaiFENesin 200 MG TAB PO SCH ×3 (08:42→20:13)
[2022-10-10] MEDS: DABIGATRAN ETEXILATE 75 MG CAP (PRADAXA) PO SCH ×2 (08:42→20:13)
[2022-10-10] MEDS: TORSEMIDE 20 MG TAB PO SCH (08:43)
[2022-10-10] MEDS: MEMANTINE 5MG TABLET (NAMENDA) PO SCH (08:43)
[2022-10-10] MEDS: VENLAFAXINE **XR** 37.5 MG CAPSULE PO SCH (08:43)
[2022-10-10] MEDS: FLUTICASONE PROP 0.05% NASAL SPRAY 16 GM (FLONASE) NARES SCH ×2 (08:45→20:13)
[2022-10-10] MEDS: POTASSIUM CHLORIDE 10MEQ SR TABLET PO SCH (08:45)
[2022-10-10] MEDS: ASCORBIC ACID 500 MG TAB PO SCH (08:45)
[2022-10-10] MEDS: DONEPEZIL 5 MG TAB PO SCH (08:45)
[2022-10-10] MEDS: SODIUM CHLORIDE NASAL 0.65% SPRAY BTL (OCEAN) SCH ×3 (08:45→20:13)
[2022-10-10] MEDS: SINEMET 25-100 MG TAB PO SCH ×3 (08:45→16:39)
[2022-10-10] MEDS: predniSONE 20 MG TAB PO SCH (08:45)
[2022-10-10] MEDS: DOCUSATE SODIUM 100MG CAPSULE PO SCH ×2 (08:45→21:00)
[2022-10-10] MEDS: REMEDY PHYTOPLEX Z-GUARD PASTE 113GM TUBE (FROM STOREROOM PRODUCT) TOP SCH ×3 (08:46→20:14)
[2022-10-10 14:00] VITALS: BP 137/76
[2022-10-10 20:00] VITALS: BP 126/70
[2022-10-10] MEDS: TAMSULOSIN 0.4 MG CAP PO SCH (20:13)
[2022-10-10] MEDS: SIMVASTATIN 40 MG TAB PO SCH (20:13)
[2022-10-10] MEDS: SENNA 8.6 MG TAB (SENOKOT) PO SCH (21:00)
[2022-10-11 05:59] VITALS: BP 127/76
[2022-10-11] MEDS: COMBIVENT RESPIMAT 100-20MCG INHALER 4GM INH SCH ×3 (07:17→19:26)
[2022-10-11] MEDS: ASCORBIC ACID 500 MG TAB PO SCH (08:45)
[2022-10-11] MEDS: VENLAFAXINE **XR** 37.5 MG CAPSULE PO SCH (08:46)
[2022-10-11] MEDS: SINEMET 25-100 MG TAB PO SCH ×3 (08:46→16:27)
[2022-10-11] MEDS: predniSONE 20 MG TAB PO SCH (08:46)
[2022-10-11] MEDS: DONEPEZIL 5 MG TAB PO SCH (08:46)
[2022-10-11] MEDS: ASPIRIN 81MG ENTERIC TABLET PO SCH (08:46)
[2022-10-11] MEDS: DABIGATRAN ETEXILATE 75 MG CAP (PRADAXA) PO SCH ×2 (08:46→21:34)
[2022-10-11] MEDS: POTASSIUM CHLORIDE 10MEQ SR TABLET PO SCH (08:46)
[2022-10-11] MEDS: SUCRALFATE 1 GM TAB PO SCH ×3 (08:46→16:27)
[2022-10-11] MEDS: MEMANTINE 5MG TABLET (NAMENDA) PO SCH (08:46)
[2022-10-11] MEDS: TORSEMIDE 20 MG TAB PO SCH (08:46)
[2022-10-11] MEDS: guaiFENesin 200 MG TAB PO SCH ×3 (08:47→21:34)
[2022-10-11] MEDS: SODIUM CHLORIDE NASAL 0.65% SPRAY BTL (OCEAN) SCH ×3 (08:47→21:34)
[2022-10-11] MEDS: DOCUSATE SODIUM 100MG CAPSULE PO SCH ×2 (08:47→21:00)
[2022-10-11] MEDS: FLUTICASONE PROP 0.05% NASAL SPRAY 16 GM (FLONASE) NARES SCH ×2 (08:47→21:34)
[2022-10-11] MEDS: REMEDY PHYTOPLEX Z-GUARD PASTE 113GM TUBE (FROM STOREROOM PRODUCT) TOP SCH ×3 (08:48→21:35)
[2022-10-11 14:00] VITALS: BP 117/56
[2022-10-11 20:39] VITALS: BP 131/80
[2022-10-11] MEDS: SENNA 8.6 MG TAB (SENOKOT) PO SCH (21:00)
[2022-10-11] MEDS: SIMVASTATIN 40 MG TAB PO SCH (21:33)
[2022-10-11] MEDS: TAMSULOSIN 0.4 MG CAP PO SCH (21:34)
[2022-10-12 06:00] VITALS: BP 151/89
[2022-10-12] MEDS: DOCUSATE SODIUM 100MG CAPSULE PO SCH ×2 (07:12→21:00)
[2022-10-12 07:53] LABS: BASO % 0.3 % (0.0-1.0); EOS # 0.3 10^3/uL (0.0-0.5); EOS % 2.2 % (0.0-3.0); HEMATOCRIT 46.7 % (42.0-52.0); HEMOGLOBIN 14.4 g/dl (13.5-17.5); LYMPH # 2.3 10^3/uL (1.5-5.0); LYMPH % 19.7 % (24.0-44.0); MEAN CORPUSCULAR HGB CONC 30.8 g/dl (32.0-36.5); MEAN CORPUSCULAR VOLUME 94.2 fl (80.0-96.0); MONO # 0.6 10^3/uL (0.0-0.8); MONO % 4.8 % (2.0-8.0); NEUTROPHILS # 8.5 10^3/uL (1.5-8.5); NEUTROPHILS % 72.1 % (36.0-66.0); PLATELET COUNT, AUTOMATED 319 10^3/uL (150-450); RED BLOOD COUNT 4.96 10^6/uL (4.30-6.10); WHITE BLOOD COUNT 11.8 10^3/uL (4.0-10.0)
[2022-10-12] MEDS: COMBIVENT RESPIMAT 100-20MCG INHALER 4GM INH SCH ×3 (08:00→20:01)
[2022-10-12] MEDS: SINEMET 25-100 MG TAB PO SCH ×3 (08:05→16:59)
[2022-10-12] MEDS: MEMANTINE 5MG TABLET (NAMENDA) PO SCH (08:05)
[2022-10-12] MEDS: DABIGATRAN ETEXILATE 75 MG CAP (PRADAXA) PO SCH ×2 (08:06→20:24)
[2022-10-12] MEDS: ASCORBIC ACID 500 MG TAB PO SCH (08:06)
[2022-10-12] MEDS: DONEPEZIL 5 MG TAB PO SCH (08:06)
[2022-10-12] MEDS: SUCRALFATE 1 GM TAB PO SCH ×3 (08:06→16:59)
[2022-10-12] MEDS: predniSONE 20 MG TAB PO SCH (08:06)
[2022-10-12] MEDS: TORSEMIDE 20 MG TAB PO SCH (08:06)
[2022-10-12] MEDS: POTASSIUM CHLORIDE 10MEQ SR TABLET PO SCH (08:06)
[2022-10-12] MEDS: guaiFENesin 200 MG TAB PO SCH ×3 (08:07→20:24)
[2022-10-12] MEDS: FLUTICASONE PROP 0.05% NASAL SPRAY 16 GM (FLONASE) NARES SCH ×2 (08:07→20:24)
[2022-10-12] MEDS: VENLAFAXINE **XR** 37.5 MG CAPSULE PO SCH (08:07)
[2022-10-12] MEDS: SODIUM CHLORIDE NASAL 0.65% SPRAY BTL (OCEAN) SCH ×3 (08:07→20:24)
[2022-10-12] MEDS: ASPIRIN 81MG ENTERIC TABLET PO SCH (08:08)
[2022-10-12] MEDS: REMEDY PHYTOPLEX Z-GUARD PASTE 113GM TUBE (FROM STOREROOM PRODUCT) TOP SCH ×3 (08:12→20:24)
[2022-10-12 08:19] LABS: BLOOD UREA NITROGEN 27 MG/DL (9-23); CALCIUM LEVEL 9.2 MG/DL (8.3-10.6); CARBON DIOXIDE LEVEL 30 MMOL/L (20-31); CHLORIDE LEVEL 100 MMOL/L (98-107); CREATININE FOR GFR 1.11 MG/DL (0.70-1.30); GLOMERULAR FILTRATION RATE > 60.0 (>42); GLUCOSE, FASTING 132 MG/DL (74-106); POTASSIUM SERUM 3.6 MMOL/L (3.5-5.1); SODIUM LEVEL 139 MMOL/L (136-145)
[2022-10-12 14:00] VITALS: BP 149/68
[2022-10-12 20:14] VITALS: BP 141/75
[2022-10-12] MEDS: TAMSULOSIN 0.4 MG CAP PO SCH (20:24)
[2022-10-12] MEDS: SIMVASTATIN 40 MG TAB PO SCH (20:24)
[2022-10-12] MEDS: SENNA 8.6 MG TAB (SENOKOT) PO SCH (21:00)
[2022-10-13 06:16] VITALS: BP 136/73
[2022-10-13] MEDS: DOCUSATE SODIUM 100MG CAPSULE PO SCH ×2 (07:11→19:33)
[2022-10-13] MEDS: SUCRALFATE 1 GM TAB PO SCH ×3 (07:42→17:07)
[2022-10-13] MEDS: guaiFENesin 200 MG TAB PO SCH ×3 (07:42→20:13)
[2022-10-13] MEDS: POTASSIUM CHLORIDE 10MEQ SR TABLET PO SCH (07:42)
[2022-10-13] MEDS: predniSONE 20 MG TAB PO SCH (07:42)
[2022-10-13] MEDS: MEMANTINE 5MG TABLET (NAMENDA) PO SCH (07:42)
[2022-10-13] MEDS: DABIGATRAN ETEXILATE 75 MG CAP (PRADAXA) PO SCH ×2 (07:42→20:13)
[2022-10-13] MEDS: SINEMET 25-100 MG TAB PO SCH ×3 (07:42→17:07)
[2022-10-13] MEDS: TORSEMIDE 20 MG TAB PO SCH (07:43)
[2022-10-13] MEDS: VENLAFAXINE **XR** 37.5 MG CAPSULE PO SCH (07:43)
[2022-10-13] MEDS: FLUTICASONE PROP 0.05% NASAL SPRAY 16 GM (FLONASE) NARES SCH ×2 (07:43→20:14)
[2022-10-13] MEDS: DONEPEZIL 5 MG TAB PO SCH (07:43)
[2022-10-13] MEDS: ASPIRIN 81MG ENTERIC TABLET PO SCH (07:43)
[2022-10-13] MEDS: ASCORBIC ACID 500 MG TAB PO SCH (07:43)
[2022-10-13] MEDS: SODIUM CHLORIDE NASAL 0.65% SPRAY BTL (OCEAN) SCH ×3 (07:44→20:14)
[2022-10-13] MEDS: COMBIVENT RESPIMAT 100-20MCG INHALER 4GM INH SCH ×3 (08:30→21:00)
[2022-10-13] MEDS: REMEDY PHYTOPLEX Z-GUARD PASTE 113GM TUBE (FROM STOREROOM PRODUCT) TOP SCH ×3 (09:00→19:33)
[2022-10-13 14:00] VITALS: BP 130/58
[2022-10-13 19:28] VITALS: BP 150/90
[2022-10-13] MEDS: SENNA 8.6 MG TAB (SENOKOT) PO SCH (19:32)
[2022-10-13] MEDS: TAMSULOSIN 0.4 MG CAP PO SCH (20:13)
[2022-10-13] MEDS: SIMVASTATIN 40 MG TAB PO SCH (20:13)
[2022-10-14 05:36] VITALS: BP 146/86
[2022-10-14] MEDS: COMBIVENT RESPIMAT 100-20MCG INHALER 4GM INH SCH ×3 (07:39→19:33)
[2022-10-14] MEDS: SUCRALFATE 1 GM TAB PO SCH ×3 (08:18→16:40)
[2022-10-14] MEDS: REMEDY PHYTOPLEX Z-GUARD PASTE 113GM TUBE (FROM STOREROOM PRODUCT) TOP SCH ×3 (08:18→20:27)
[2022-10-14] MEDS: predniSONE 20 MG TAB PO SCH (08:18)
[2022-10-14] MEDS: DOCUSATE SODIUM 100MG CAPSULE PO SCH ×2 (08:19→20:18)
[2022-10-14] MEDS: TORSEMIDE 20 MG TAB PO SCH (08:19)
[2022-10-14] MEDS: ASCORBIC ACID 500 MG TAB PO SCH (08:19)
[2022-10-14] MEDS: MEMANTINE 5MG TABLET (NAMENDA) PO SCH (08:19)
[2022-10-14] MEDS: DONEPEZIL 5 MG TAB PO SCH (08:19)
[2022-10-14] MEDS: DABIGATRAN ETEXILATE 75 MG CAP (PRADAXA) PO SCH ×2 (08:20→20:18)
[2022-10-14] MEDS: ASPIRIN 81MG ENTERIC TABLET PO SCH (08:20)
[2022-10-14] MEDS: guaiFENesin 200 MG TAB PO SCH ×3 (08:20→20:18)
[2022-10-14] MEDS: VENLAFAXINE **XR** 37.5 MG CAPSULE PO SCH (08:20)
[2022-10-14] MEDS: SINEMET 25-100 MG TAB PO SCH ×3 (08:20→16:41)
[2022-10-14] MEDS: POTASSIUM CHLORIDE 10MEQ SR TABLET PO SCH (08:20)
[2022-10-14] MEDS: FLUTICASONE PROP 0.05% NASAL SPRAY 16 GM (FLONASE) NARES SCH ×2 (08:21→20:26)
[2022-10-14] MEDS: SODIUM CHLORIDE NASAL 0.65% SPRAY BTL (OCEAN) SCH ×3 (08:21→20:26)
[2022-10-14 13:29] LABS: BASO # 0.1 10^3/uL (0.0-0.2); BASO % 0.4 % (0.0-1.0); EOS # 0.1 10^3/uL (0.0-0.5); EOS % 0.4 % (0.0-3.0); HEMATOCRIT 45.6 % (42.0-52.0); HEMOGLOBIN 14.8 g/dl (13.5-17.5); LYMPH # 1.1 10^3/uL (1.5-5.0); MEAN CORPUSCULAR HEMOGLOBIN 29.4 pg (27.0-33.0); MEAN CORPUSCULAR HGB CONC 32.5 g/dl (32.0-36.5); MEAN CORPUSCULAR VOLUME 90.7 fl (80.0-96.0); MONO # 0.5 10^3/uL (0.0-0.8); NEUTROPHILS # 14.3 10^3/uL (1.5-8.5); NEUTROPHILS % 88.3 % (36.0-66.0); PLATELET COUNT, AUTOMATED 316 10^3/uL (150-450); RED BLOOD COUNT 5.03 10^6/uL (4.30-6.10); WHITE BLOOD COUNT 16.2 10^3/uL (4.0-10.0)
[2022-10-14 13:58] LABS: BLOOD UREA NITROGEN 27 MG/DL (9-23); CALCIUM LEVEL 8.9 MG/DL (8.3-10.6); CARBON DIOXIDE LEVEL 28 MMOL/L (20-31); CHLORIDE LEVEL 100 MMOL/L (98-107); CREATININE FOR GFR 1.13 MG/DL (0.70-1.30); GLOMERULAR FILTRATION RATE > 60.0 (>42); GLUCOSE, FASTING 162 MG/DL (74-106); SODIUM LEVEL 135 MMOL/L (136-145)
[2022-10-14 14:00] VITALS: BP 118/73
[2022-10-14 20:00] VITALS: BP 126/75
[2022-10-14] MEDS: TAMSULOSIN 0.4 MG CAP PO SCH (20:18)
[2022-10-14] MEDS: SIMVASTATIN 40 MG TAB PO SCH (20:18)
[2022-10-14] MEDS: SENNA 8.6 MG TAB (SENOKOT) PO SCH (20:18)
[2022-10-15 06:38] VITALS: BP 150/77
[2022-10-15 06:59] VITALS: BP 150/77
[2022-10-15] MEDS: COMBIVENT RESPIMAT 100-20MCG INHALER 4GM INH SCH ×3 (08:00→19:50)
[2022-10-15] MEDS: VENLAFAXINE **XR** 37.5 MG CAPSULE PO SCH (08:11)
[2022-10-15] MEDS: ASCORBIC ACID 500 MG TAB PO SCH (08:11)
[2022-10-15] MEDS: POTASSIUM CHLORIDE 10MEQ SR TABLET PO SCH (08:11)
[2022-10-15] MEDS: SUCRALFATE 1 GM TAB PO SCH ×3 (08:11→17:53)
[2022-10-15] MEDS: DABIGATRAN ETEXILATE 75 MG CAP (PRADAXA) PO SCH ×2 (08:11→20:28)
[2022-10-15] MEDS: DONEPEZIL 5 MG TAB PO SCH (08:12)
[2022-10-15] MEDS: MEMANTINE 5MG TABLET (NAMENDA) PO SCH (08:12)
[2022-10-15] MEDS: SINEMET 25-100 MG TAB PO SCH ×3 (08:12→16:04)
[2022-10-15] MEDS: guaiFENesin 200 MG TAB PO SCH ×3 (08:12→20:29)
[2022-10-15] MEDS: ASPIRIN 81MG ENTERIC TABLET PO SCH (08:12)
[2022-10-15] MEDS: predniSONE 20 MG TAB PO SCH (08:12)
[2022-10-15] MEDS: DOCUSATE SODIUM 100MG CAPSULE PO SCH ×2 (08:13→20:17)
[2022-10-15] MEDS: REMEDY PHYTOPLEX Z-GUARD PASTE 113GM TUBE (FROM STOREROOM PRODUCT) TOP SCH ×3 (08:14→20:17)
[2022-10-15] MEDS: SODIUM CHLORIDE NASAL 0.65% SPRAY BTL (OCEAN) SCH ×3 (09:00→20:29)
[2022-10-15] MEDS: FLUTICASONE PROP 0.05% NASAL SPRAY 16 GM (FLONASE) NARES SCH ×2 (09:00→20:29)
[2022-10-15 14:00] VITALS: BP 156/74
[2022-10-15] MEDS: TORSEMIDE 20 MG TAB PO SCH (16:04)
[2022-10-15 20:00] VITALS: BP 147/80
[2022-10-15] MEDS: SENNA 8.6 MG TAB (SENOKOT) PO SCH (20:17)
[2022-10-15] MEDS: TAMSULOSIN 0.4 MG CAP PO SCH (20:28)
[2022-10-15] MEDS: SIMVASTATIN 40 MG TAB PO SCH (20:28)
[2022-10-16 05:18] VITALS: BP 148/88
[2022-10-16 07:10] LABS: BASO % 0.3 % (0.0-1.0); EOS # 0.2 10^3/uL (0.0-0.5); EOS % 1.4 % (0.0-3.0); HEMATOCRIT 42.4 % (42.0-52.0); HEMOGLOBIN 13.6 g/dl (13.5-17.5); LYMPH # 2.7 10^3/uL (1.5-5.0); LYMPH % 20.5 % (24.0-44.0); MEAN CORPUSCULAR HEMOGLOBIN 29.3 pg (27.0-33.0); MEAN CORPUSCULAR HGB CONC 32.1 g/dl (32.0-36.5); MEAN CORPUSCULAR VOLUME 91.4 fl (80.0-96.0); MONO # 1.2 10^3/uL (0.0-0.8); MONO % 8.9 % (2.0-8.0); NEUTROPHILS # 9.1 10^3/uL (1.5-8.5); NEUTROPHILS % 68.1 % (36.0-66.0); PLATELET COUNT, AUTOMATED 275 10^3/uL (150-450); RED BLOOD COUNT 4.64 10^6/uL (4.30-6.10); WHITE BLOOD COUNT 13.3 10^3/uL (4.0-10.0)
[2022-10-16 07:44] LABS: BLOOD UREA NITROGEN 25 MG/DL (9-23); CALCIUM LEVEL 8.9 MG/DL (8.3-10.6); CARBON DIOXIDE LEVEL 31 MMOL/L (20-31); CHLORIDE LEVEL 100 MMOL/L (98-107); GLOMERULAR FILTRATION RATE > 60.0 (>42); GLUCOSE, FASTING 81 MG/DL (74-106); POTASSIUM SERUM 3.6 MMOL/L (3.5-5.1); SODIUM LEVEL 140 MMOL/L (136-145)
[2022-10-16] MEDS: COMBIVENT RESPIMAT 100-20MCG INHALER 4GM INH SCH ×3 (07:57→19:46)
[2022-10-16] MEDS: ASCORBIC ACID 500 MG TAB PO SCH (08:46)
[2022-10-16] MEDS: DABIGATRAN ETEXILATE 75 MG CAP (PRADAXA) PO SCH ×2 (08:46→20:33)
[2022-10-16] MEDS: TORSEMIDE 20 MG TAB PO SCH (08:46)
[2022-10-16] MEDS: POTASSIUM CHLORIDE 10MEQ SR TABLET PO SCH (08:46)
[2022-10-16] MEDS: ASPIRIN 81MG ENTERIC TABLET PO SCH (08:46)
[2022-10-16] MEDS: MEMANTINE 5MG TABLET (NAMENDA) PO SCH (08:46)
[2022-10-16] MEDS: SUCRALFATE 1 GM TAB PO SCH ×3 (08:46→17:10)
[2022-10-16] MEDS: guaiFENesin 200 MG TAB PO SCH ×3 (08:47→20:33)
[2022-10-16] MEDS: DONEPEZIL 5 MG TAB PO SCH (08:47)
[2022-10-16] MEDS: SODIUM CHLORIDE NASAL 0.65% SPRAY BTL (OCEAN) SCH ×3 (08:47→20:34)
[2022-10-16] MEDS: SINEMET 25-100 MG TAB PO SCH ×3 (08:47→16:07)
[2022-10-16] MEDS: DOCUSATE SODIUM 100MG CAPSULE PO SCH ×2 (08:47→20:34)
[2022-10-16] MEDS: predniSONE 20 MG TAB PO SCH (08:47)
[2022-10-16] MEDS: VENLAFAXINE **XR** 37.5 MG CAPSULE PO SCH (08:47)
[2022-10-16] MEDS: FLUTICASONE PROP 0.05% NASAL SPRAY 16 GM (FLONASE) NARES SCH ×2 (08:47→20:34)
[2022-10-16] MEDS: REMEDY PHYTOPLEX Z-GUARD PASTE 113GM TUBE (FROM STOREROOM PRODUCT) TOP SCH ×3 (08:48→20:34)
[2022-10-16 14:54] VITALS: BP 127/64
[2022-10-16 20:00] VITALS: BP 143/75
[2022-10-16] MEDS: TAMSULOSIN 0.4 MG CAP PO SCH (20:33)
[2022-10-16] MEDS: SIMVASTATIN 40 MG TAB PO SCH (20:33)
[2022-10-16] MEDS: SENNA 8.6 MG TAB (SENOKOT) PO SCH (20:34)
[2022-10-17 06:00] VITALS: BP 135/74
[2022-10-17] MEDS: COMBIVENT RESPIMAT 100-20MCG INHALER 4GM INH SCH ×3 (07:42→20:12)
[2022-10-17] MEDS: guaiFENesin 200 MG TAB PO SCH ×3 (08:31→20:19)
[2022-10-17] MEDS: DOCUSATE SODIUM 100MG CAPSULE PO SCH ×2 (08:31→20:19)
[2022-10-17] MEDS: DABIGATRAN ETEXILATE 75 MG CAP (PRADAXA) PO SCH ×2 (08:49→20:19)
[2022-10-17] MEDS: ASPIRIN 81MG ENTERIC TABLET PO SCH (08:49)
[2022-10-17] MEDS: DONEPEZIL 5 MG TAB PO SCH (08:49)
[2022-10-17] MEDS: FLUTICASONE PROP 0.05% NASAL SPRAY 16 GM (FLONASE) NARES SCH ×2 (08:49→20:19)
[2022-10-17] MEDS: SUCRALFATE 1 GM TAB PO SCH ×3 (08:49→16:53)
[2022-10-17] MEDS: ASCORBIC ACID 500 MG TAB PO SCH (08:49)
[2022-10-17] MEDS: MEMANTINE 5MG TABLET (NAMENDA) PO SCH (08:49)
[2022-10-17] MEDS: SODIUM CHLORIDE NASAL 0.65% SPRAY BTL (OCEAN) SCH ×3 (08:49→20:19)
[2022-10-17] MEDS: POTASSIUM CHLORIDE 10MEQ SR TABLET PO SCH (08:49)
[2022-10-17] MEDS: TORSEMIDE 20 MG TAB PO SCH (08:49)
[2022-10-17] MEDS: SINEMET 25-100 MG TAB PO SCH ×3 (08:49→16:54)
[2022-10-17] MEDS: predniSONE 20 MG TAB PO SCH (08:49)
[2022-10-17] MEDS: VENLAFAXINE **XR** 37.5 MG CAPSULE PO SCH (08:50)
[2022-10-17] MEDS: REMEDY PHYTOPLEX Z-GUARD PASTE 113GM TUBE (FROM STOREROOM PRODUCT) TOP SCH ×3 (08:50→20:20)
[2022-10-17 14:00] VITALS: BP 128/60
[2022-10-17 20:00] VITALS: BP 131/80
[2022-10-17] MEDS: SENNA 8.6 MG TAB (SENOKOT) PO SCH (20:19)
[2022-10-17] MEDS: TAMSULOSIN 0.4 MG CAP PO SCH (20:19)
[2022-10-17] MEDS: SIMVASTATIN 40 MG TAB PO SCH (20:19)
[2022-10-18 06:00] VITALS: BP 154/90
[2022-10-18] MEDS: COMBIVENT RESPIMAT 100-20MCG INHALER 4GM INH SCH ×3 (08:00→19:16)
[2022-10-18] MEDS: ASCORBIC ACID 500 MG TAB PO SCH (08:51)
[2022-10-18] MEDS: predniSONE 20 MG TAB PO SCH (08:51)
[2022-10-18] MEDS: ASPIRIN 81MG ENTERIC TABLET PO SCH (08:52)
[2022-10-18] MEDS: DONEPEZIL 5 MG TAB PO SCH (08:52)
[2022-10-18] MEDS: MEMANTINE 5MG TABLET (NAMENDA) PO SCH (08:52)
[2022-10-18] MEDS: DABIGATRAN ETEXILATE 75 MG CAP (PRADAXA) PO SCH ×2 (08:52→20:05)
[2022-10-18] MEDS: SINEMET 25-100 MG TAB PO SCH ×3 (08:52→16:31)
[2022-10-18] MEDS: SUCRALFATE 1 GM TAB PO SCH ×3 (08:52→16:31)
[2022-10-18] MEDS: TORSEMIDE 20 MG TAB PO SCH (08:52)
[2022-10-18] MEDS: DOCUSATE SODIUM 100MG CAPSULE PO SCH ×2 (08:52→20:04)
[2022-10-18] MEDS: POTASSIUM CHLORIDE 10MEQ SR TABLET PO SCH (08:52)
[2022-10-18] MEDS: guaiFENesin 200 MG TAB PO SCH ×3 (08:53→20:04)
[2022-10-18] MEDS: FLUTICASONE PROP 0.05% NASAL SPRAY 16 GM (FLONASE) NARES SCH ×2 (08:53→20:05)
[2022-10-18] MEDS: SODIUM CHLORIDE NASAL 0.65% SPRAY BTL (OCEAN) SCH ×3 (08:53→20:05)
[2022-10-18] MEDS: VENLAFAXINE **XR** 37.5 MG CAPSULE PO SCH (08:53)
[2022-10-18] MEDS: REMEDY PHYTOPLEX Z-GUARD PASTE 113GM TUBE (FROM STOREROOM PRODUCT) TOP SCH ×3 (08:53→20:05)
[2022-10-18 14:00] VITALS: BP 126/61
[2022-10-18 20:00] VITALS: BP 137/70
[2022-10-18] MEDS: TAMSULOSIN 0.4 MG CAP PO SCH (20:04)
[2022-10-18] MEDS: SIMVASTATIN 40 MG TAB PO SCH (20:05)
[2022-10-18] MEDS: SENNA 8.6 MG TAB (SENOKOT) PO SCH (20:05)
[2022-10-19 06:00] VITALS: BP 154/85
[2022-10-19] MEDS: COMBIVENT RESPIMAT 100-20MCG INHALER 4GM INH SCH (07:19)
[2022-10-19] MEDS: DOCUSATE SODIUM 100MG CAPSULE PO SCH (09:00)
[2022-10-19] MEDS: guaiFENesin 200 MG TAB PO SCH (09:00)
[2022-10-19] MEDS: REMEDY PHYTOPLEX Z-GUARD PASTE 113GM TUBE (FROM STOREROOM PRODUCT) TOP SCH (09:00)
[2022-10-19] MEDS: MEMANTINE 5MG TABLET (NAMENDA) PO SCH (09:14)
[2022-10-19] MEDS: DONEPEZIL 5 MG TAB PO SCH (09:14)
[2022-10-19] MEDS: ASCORBIC ACID 500 MG TAB PO SCH (09:14)
[2022-10-19] MEDS: predniSONE 20 MG TAB PO SCH (09:14)
[2022-10-19] MEDS: SINEMET 25-100 MG TAB PO SCH ×2 (09:14→12:29)
[2022-10-19] MEDS: TORSEMIDE 20 MG TAB PO SCH (09:14)
[2022-10-19] MEDS: ASPIRIN 81MG ENTERIC TABLET PO SCH (09:14)
[2022-10-19] MEDS: VENLAFAXINE **XR** 37.5 MG CAPSULE PO SCH (09:14)
[2022-10-19] MEDS: DABIGATRAN ETEXILATE 75 MG CAP (PRADAXA) PO SCH (09:15)
[2022-10-19] MEDS: POTASSIUM CHLORIDE 10MEQ SR TABLET PO SCH (09:15)
[2022-10-19] MEDS: FLUTICASONE PROP 0.05% NASAL SPRAY 16 GM (FLONASE) NARES SCH (09:16)
[2022-10-19] MEDS: SODIUM CHLORIDE NASAL 0.65% SPRAY BTL (OCEAN) SCH (09:16)
[2022-10-19] MEDS: SUCRALFATE 1 GM TAB PO SCH ×2 (09:17→12:29)
[2022-10-19] MEDS ORDERED: SUCR1TA PO (10:29)
[2022-10-19] MEDS ORDERED: PRED20TA PO ×2 (10:29→10:31)
[2022-10-19] MEDS ORDERED: CARA1TAB6 PO (10:31)
== END 2022-10-19 13:50 | disposition home or self-care (01) | DRG 57 ==
LOC: M PM&R 13:10
PROVIDERS: ADMIT Physical Medicine & Rehabilitation; ATTEND Physical Medicine & Rehabilitation
DX: G20 Parkinson's disease (principal); N31.9 Neuromuscular dysfunction of bladder, unspecified; M54.9 Dorsalgia, unspecified; G89.29 Other chronic pain; E78.5 Hyperlipidemia, unspecified; N40.0 Benign prostatic hyperplasia without lower urinary tract symptoms; F03.90 Unspecified dementia, unspecified severity, without behavioral disturbance, psychotic disturbance, mood disturbance, and anxiety; I50.9 Heart failure, unspecified; I48.91 Unspecified atrial fibrillation; Z86.73 Personal history of transient ischemic attack (TIA), and cerebral infarction without residual deficits; G47.33 Obstructive sleep apnea (adult) (pediatric); M35.3 Polymyalgia rheumatica; Z74.09 Other reduced mobility; Z74.1 Need for assistance with personal care; R19.7 Diarrhea, unspecified; R33.9 Retention of urine, unspecified; R53.1 Weakness; R25.8 Other abnormal involuntary movements; R13.10 Dysphagia, unspecified; Z98.49 Cataract extraction status, unspecified eye; Z87.891 Personal history of nicotine dependence; Z79.82 Long term (current) use of aspirin; Z79.52 Long term (current) use of systemic steroids; Z79.899 Other long term (current) drug therapy

== ENCOUNTER → 2022-10-29 | Outpatient (REF) | payer MEDICARE, OTHER ==
[~2022-10-29] MED LIST changes: +CARA1TAB6 PO; +PRED20TA PO; +SUCR1TA PO
== END ==
LOC: M LAB REF 12:00
PROVIDERS: ATTEND Internal Medicine
DX: M35.3 Polymyalgia rheumatica (principal)

== ENCOUNTER → 2022-11-16 | Outpatient (REF) | payer MEDICARE, OTHER | LOC: M LAB REF 16:08 | PROVIDERS: ATTEND Internal Medicine | DX: M35.3 Polymyalgia rheumatica (principal) ==

== ENCOUNTER → 2022-12-01 | Outpatient (REF) | payer MEDICARE, OTHER | LOC: M LAB REF 12:44 | PROVIDERS: ATTEND Internal Medicine | DX: M35.3 Polymyalgia rheumatica (principal) ==

== ENCOUNTER → 2022-12-15 | Outpatient (REF) | payer MEDICARE, OTHER | LOC: M LAB REF 16:16 | PROVIDERS: ATTEND Internal Medicine | DX: M35.3 Polymyalgia rheumatica (principal) ==

== ENCOUNTER → 2022-12-29 | Outpatient (REF) | payer MEDICARE, OTHER | LOC: M LAB REF 16:34 | PROVIDERS: ATTEND Internal Medicine | DX: M35.3 Polymyalgia rheumatica (principal) ==

== ENCOUNTER 2023-01-02 00:08 | Inpatient (IN) | payer MEDICARE, OTHER ==
[~2023-01-02] VITALS: Ht 165.1 cm; Wt 90.1 kg
[2023-01-02] VITALS (8 sets, daily range): BP systolic 117–181; BP diastolic 62–91; O2SAT 91–93
[~2023-01-02 00:08] MED LIST changes: +POTA-298 PO; -POTA1TAB14 PO
[2023-01-02 01:37] LABS: BASO # 0.1 10^3/uL (0.0-0.2); BASO % 0.3 % (0.0-1.0); EOS % 0.1 % (0.0-3.0); HEMATOCRIT 48.4 % (42.0-52.0); HEMOGLOBIN 15.2 g/dl (13.5-17.5); LYMPH # 1.3 10^3/uL (1.5-5.0); LYMPH % 6.9 % (24.0-44.0); MEAN CORPUSCULAR HEMOGLOBIN 29.9 pg (27.0-33.0); MEAN CORPUSCULAR HGB CONC 31.4 g/dl (32.0-36.5); MEAN CORPUSCULAR VOLUME 95.3 fl (80.0-96.0); MONO % 11.1 % (2.0-8.0); NEUTROPHILS # 15.5 10^3/uL (1.5-8.5); PLATELET COUNT, AUTOMATED 204 10^3/uL (150-450); RED BLOOD COUNT 5.08 10^6/uL (4.30-6.10); WHITE BLOOD COUNT 19.1 10^3/uL (4.0-10.0)
[2023-01-02 01:41] LABS: LIPASE 38 U/L (12-53)
[2023-01-02 01:43] LABS: ALBUMIN 3.8 G/DL (3.2-5.2); ALKALINE PHOSPHATASE 64 U/L (46-116); ALT/SGPT 30 U/L (7.0-40); AST/SGOT 26 U/L (<34); BILIRUBIN,DIRECT 0.1 MG/DL (<0.4); BILIRUBIN,TOTAL 0.6 MG/DL (0.3-1.2); BLOOD UREA NITROGEN 29 MG/DL (9-23); CALCIUM LEVEL 9.4 MG/DL (8.3-10.6); CARBON DIOXIDE LEVEL 28 MMOL/L (20-31); CHLORIDE LEVEL 101 MMOL/L (98-107); CK-MB VALUE MASS 1.4 NG/ML (<3.6); CREATININE FOR GFR 1.05 MG/DL (0.70-1.30); GLOMERULAR FILTRATION RATE > 60.0 (>42); GLUCOSE, FASTING 98 MG/DL (74-106); POTASSIUM SERUM 4.1 MMOL/L (3.5-5.1); SODIUM LEVEL 138 MMOL/L (136-145)
[2023-01-02 02:15] LABS: CPK CREATINE PHOSPHOKINASE 62 U/L (46-171); MB/CK RELATIVE INDEX 2.25 (< OR =4)
[2023-01-02 02:27] LABS: MONO # 2.1 10^3/uL (0.0-0.8)
[2023-01-02] MEDS ORDERED: cefTRIAXone SOD 2 GM in D5W MINI-BAG PLUS 50 ML IV ONE (03:05)
[2023-01-02] MEDS ORDERED: MOM 30ML SUSPENSION UDC PO PRN (04:50)
[2023-01-02] MEDS ORDERED: ACETAMINOPHEN TAB 650MG DOSE (2X325MG) PO PRN (04:50)
[2023-01-02] MEDS ORDERED: MAALOX 30 ML SUSP *UDC PO PRN (04:50)
[2023-01-02] MEDS ORDERED: CARB25TA9 PO (04:56)
[2023-01-02] MEDS ORDERED: ACET-683 PO (04:56)
[2023-01-02] MEDS ORDERED: OSTETAB2 PO (05:01)
[2023-01-02] MEDS ORDERED: PRED10TA2 PO (05:01)
[2023-01-02] MEDS ORDERED: HOME MED LIST COMPLETE! XX SCH (05:05)
[2023-01-02] MEDS ORDERED: PILL CUTTER 1 EACH XX PRN (05:45)
[2023-01-02 06:42] LABS: BASO # 0.1 10^3/uL (0.0-0.2); BASO % 0.3 % (0.0-1.0); EOS % 0.2 % (0.0-3.0); HEMATOCRIT 47.4 % (42.0-52.0); HEMOGLOBIN 14.8 g/dl (13.5-17.5); LYMPH # 1.7 10^3/uL (1.5-5.0); LYMPH % 9.3 % (24.0-44.0); MEAN CORPUSCULAR HEMOGLOBIN 29.5 pg (27.0-33.0); MEAN CORPUSCULAR HGB CONC 31.2 g/dl (32.0-36.5); MEAN CORPUSCULAR VOLUME 94.6 fl (80.0-96.0); NEUTROPHILS # 14.6 10^3/uL (1.5-8.5); NEUTROPHILS % 78.6 % (36.0-66.0); PLATELET COUNT, AUTOMATED 198 10^3/uL (150-450); RED BLOOD COUNT 5.01 10^6/uL (4.30-6.10); WHITE BLOOD COUNT 18.5 10^3/uL (4.0-10.0)
[2023-01-02 06:59] LABS: BLOOD UREA NITROGEN 28 MG/DL (9-23); CALCIUM LEVEL 8.7 MG/DL (8.3-10.6); CARBON DIOXIDE LEVEL 29 MMOL/L (20-31); CHLORIDE LEVEL 102 MMOL/L (98-107); CREATININE FOR GFR 1.05 MG/DL (0.70-1.30); GLOMERULAR FILTRATION RATE > 60.0 (>42); GLUCOSE, FASTING 99 MG/DL (74-106); POTASSIUM SERUM 3.7 MMOL/L (3.5-5.1); SODIUM LEVEL 140 MMOL/L (136-145)
[2023-01-02] MEDS: MEMANTINE 5MG TABLET (NAMENDA) PO SCH ×2 (08:58→20:07)
[2023-01-02] MEDS: ASPIRIN 81MG ENTERIC TABLET PO SCH (08:58)
[2023-01-02] MEDS: SINEMET 25-100 MG TAB PO SCH ×3 (08:58→16:54)
[2023-01-02] MEDS: predniSONE 5 MG TAB PO SCH (08:59)
[2023-01-02] MEDS: guaiFENesin ER 600 MG TAB PO SCH ×2 (08:59→20:07)
[2023-01-02] MEDS: DABIGATRAN ETEXILATE 75 MG CAP (PRADAXA) PO SCH ×2 (08:59→20:07)
[2023-01-02] MEDS: ACETAMINOPHEN 500 MG TAB PO SCH ×2 (09:00→20:06)
[2023-01-02] MEDS: SUCRALFATE 1 GM TAB PO SCH ×4 (09:00→20:07)
[2023-01-02] MEDS: ASCORBIC ACID 500 MG TAB PO SCH (09:00)
[2023-01-02] MEDS: DONEPEZIL 5 MG TAB PO SCH (09:00)
[2023-01-02] MEDS: MULTIVITAMINS/MINERALS THERAP 1 TAB PO SCH (09:00)
[2023-01-02] MEDS ORDERED: VENL37.598 PO (09:26)
[2023-01-02] MEDS ORDERED: ISOVUE-370 76% 100ML VIAL As Ordered ONE (09:26)
[2023-01-02] MEDS: VENLAFAXINE **XR** 37.5 MG CAPSULE PO SCH (12:12)
[2023-01-02] MEDS: SIMVASTATIN 40 MG TAB PO SCH (20:06)
[2023-01-02] MEDS: TORSEMIDE 20 MG TAB PO SCH (20:07)
[2023-01-03] MEDS: cefTRIAXone SOD 1 GM in D5W MINI-BAG PLUS 50 ML IV SCH (03:30)
[2023-01-03 04:33] VITALS: BP 128/81
[2023-01-03 06:32] LABS: BASO % 0.3 % (0.0-1.0); EOS # 0.2 10^3/uL (0.0-0.5); EOS % 1.8 % (0.0-3.0); HEMATOCRIT 40.4 % (42.0-52.0); HEMOGLOBIN 12.9 g/dl (13.5-17.5); LYMPH # 1.9 10^3/uL (1.5-5.0); LYMPH % 15.2 % (24.0-44.0); MEAN CORPUSCULAR HEMOGLOBIN 29.8 pg (27.0-33.0); MEAN CORPUSCULAR HGB CONC 31.9 g/dl (32.0-36.5); MEAN CORPUSCULAR VOLUME 93.3 fl (80.0-96.0); MONO # 1.2 10^3/uL (0.0-0.8); MONO % 9.3 % (2.0-8.0); NEUTROPHILS # 9.1 10^3/uL (1.5-8.5); PLATELET COUNT, AUTOMATED 186 10^3/uL (150-450); RED BLOOD COUNT 4.33 10^6/uL (4.30-6.10); WHITE BLOOD COUNT 12.4 10^3/uL (4.0-10.0)
[2023-01-03 06:36] LABS: BLOOD UREA NITROGEN 25 MG/DL (9-23); CALCIUM LEVEL 8.3 MG/DL (8.3-10.6); CARBON DIOXIDE LEVEL 31 MMOL/L (20-31); CHLORIDE LEVEL 101 MMOL/L (98-107); CREATININE FOR GFR 1.09 MG/DL (0.70-1.30); GLOMERULAR FILTRATION RATE > 60.0 (>42); GLUCOSE, FASTING 90 MG/DL (74-106); SODIUM LEVEL 139 MMOL/L (136-145)
[2023-01-03 07:35] VITALS: BP 116/63
[2023-01-03] MEDS: MEMANTINE 5MG TABLET (NAMENDA) PO SCH ×2 (08:52→20:19)
[2023-01-03] MEDS: SUCRALFATE 1 GM TAB PO SCH ×4 (08:52→20:19)
[2023-01-03] MEDS: predniSONE 5 MG TAB PO SCH (08:52)
[2023-01-03] MEDS: DONEPEZIL 5 MG TAB PO SCH (08:53)
[2023-01-03] MEDS: ACETAMINOPHEN 500 MG TAB PO SCH ×2 (08:53→20:19)
[2023-01-03] MEDS: MULTIVITAMINS/MINERALS THERAP 1 TAB PO SCH (08:53)
[2023-01-03] MEDS: SINEMET 25-100 MG TAB PO SCH ×3 (08:53→16:45)
[2023-01-03] MEDS: VENLAFAXINE **XR** 37.5 MG CAPSULE PO SCH (08:53)
[2023-01-03] MEDS: ASPIRIN 81MG ENTERIC TABLET PO SCH (08:53)
[2023-01-03] MEDS: ASCORBIC ACID 500 MG TAB PO SCH (08:53)
[2023-01-03] MEDS: guaiFENesin ER 600 MG TAB PO SCH ×2 (08:54→20:19)
[2023-01-03] MEDS: DABIGATRAN ETEXILATE 75 MG CAP (PRADAXA) PO SCH ×2 (08:59→21:08)
[2023-01-03 15:53] VITALS: BP 127/89
[2023-01-03 16:20] VITALS: BP 148/86
[2023-01-03 20:09] VITALS: BP 101/62
[2023-01-03] MEDS: TORSEMIDE 20 MG TAB PO SCH (20:19)
[2023-01-03] MEDS: SIMVASTATIN 40 MG TAB PO SCH (20:19)
[2023-01-04] MEDS: cefTRIAXone SOD 1 GM in D5W MINI-BAG PLUS 50 ML IV SCH (03:48)
[2023-01-04 05:42] VITALS: BP 146/87
[2023-01-04 06:44] LABS: BASO % 0.4 % (0.0-1.0); EOS # 0.4 10^3/uL (0.0-0.5); EOS % 3.9 % (0.0-3.0); HEMATOCRIT 40.6 % (42.0-52.0); LYMPH # 1.6 10^3/uL (1.5-5.0); LYMPH % 17.3 % (24.0-44.0); MEAN CORPUSCULAR VOLUME 93.5 fl (80.0-96.0); MONO # 1.1 10^3/uL (0.0-0.8); MONO % 12.2 % (2.0-8.0); NEUTROPHILS # 5.9 10^3/uL (1.5-8.5); NEUTROPHILS % 65.3 % (36.0-66.0); PLATELET COUNT, AUTOMATED 175 10^3/uL (150-450); RED BLOOD COUNT 4.34 10^6/uL (4.30-6.10); WHITE BLOOD COUNT 9.1 10^3/uL (4.0-10.0)
[2023-01-04 07:22] LABS: BLOOD UREA NITROGEN 23 MG/DL (9-23); CALCIUM LEVEL 8.1 MG/DL (8.3-10.6); CARBON DIOXIDE LEVEL 32 MMOL/L (20-31); CHLORIDE LEVEL 102 MMOL/L (98-107); CREATININE FOR GFR 1.09 MG/DL (0.70-1.30); GLOMERULAR FILTRATION RATE > 60.0 (>42); GLUCOSE, FASTING 88 MG/DL (74-106); POTASSIUM SERUM 3.4 MMOL/L (3.5-5.1); SODIUM LEVEL 139 MMOL/L (136-145)
[2023-01-04] MEDS: ASCORBIC ACID 500 MG TAB PO SCH (10:10)
[2023-01-04] MEDS: predniSONE 5 MG TAB PO SCH (10:10)
[2023-01-04] MEDS: DONEPEZIL 5 MG TAB PO SCH (10:10)
[2023-01-04] MEDS: ASPIRIN 81MG ENTERIC TABLET PO SCH (10:10)
[2023-01-04] MEDS: SINEMET 25-100 MG TAB PO SCH ×2 (10:10→12:40)
[2023-01-04] MEDS: MULTIVITAMINS/MINERALS THERAP 1 TAB PO SCH (10:11)
[2023-01-04] MEDS: VENLAFAXINE **XR** 37.5 MG CAPSULE PO SCH (10:11)
[2023-01-04] MEDS: ACETAMINOPHEN 500 MG TAB PO SCH (10:11)
[2023-01-04] MEDS: guaiFENesin ER 600 MG TAB PO SCH (10:11)
[2023-01-04] MEDS: SUCRALFATE 1 GM TAB PO SCH ×2 (10:11→12:40)
[2023-01-04] MEDS: MEMANTINE 5MG TABLET (NAMENDA) PO SCH (10:11)
[2023-01-04] MEDS ORDERED: POTASSIUM CHLORIDE 10MEQ SR TABLET PO ONE (11:00)
[2023-01-04] MEDS: DABIGATRAN ETEXILATE 75 MG CAP (PRADAXA) PO SCH (11:22)
[2023-01-04 14:00] VITALS: BP 158/90
== END 2023-01-04 14:34 | DRG 698 ==
LOC: EDBD 00:08 → M ED 00:08 → M ED INP 04:55 → M PCU 05:30 → M MSPAV 01-03 16:19
PROVIDERS: ADMIT Family Medicine; ATTEND Internal Medicine
DX: T83.511A Infection and inflammatory reaction due to indwelling urethral catheter, initial encounter (principal); A41.9 Sepsis, unspecified organism; G72.0 Drug-induced myopathy; I48.21 Permanent atrial fibrillation; G20 Parkinson's disease; F03.90 Unspecified dementia, unspecified severity, without behavioral disturbance, psychotic disturbance, mood disturbance, and anxiety; F32.A Depression, unspecified; N31.9 Neuromuscular dysfunction of bladder, unspecified; I95.1 Orthostatic hypotension; M54.9 Dorsalgia, unspecified; E78.5 Hyperlipidemia, unspecified; G47.33 Obstructive sleep apnea (adult) (pediatric); K21.9 Gastro-esophageal reflux disease without esophagitis; N40.0 Benign prostatic hyperplasia without lower urinary tract symptoms; M35.3 Polymyalgia rheumatica; Z86.73 Personal history of transient ischemic attack (TIA), and cerebral infarction without residual deficits; Z98.49 Cataract extraction status, unspecified eye; Z87.891 Personal history of nicotine dependence; Z79.01 Long term (current) use of anticoagulants; Z79.82 Long term (current) use of aspirin; Z79.899 Other long term (current) drug therapy; Z20.822 Contact with and (suspected) exposure to COVID-19

== ENCOUNTER 2023-01-04 09:50 | Inpatient (IN) | payer MEDICARE, OTHER ==
[~2023-01-04] VITALS: Ht 165.1 cm; Wt 89.0 kg
[~2023-01-04 09:50] MED LIST changes: +ACET-683 PO; +OSTETAB2 PO; +PRED10TA2 PO; +VENL37.598 PO
[2023-01-04 14:40] VITALS: BP 151/75
[2023-01-04] MEDS ORDERED: BISACODYL 10MG SUPP PR PRN (15:05)
[2023-01-04] MEDS ORDERED: HOME MED LIST COMPLETE! XX SCH (16:00)
[2023-01-04] MEDS: REMEDY PHYTOPLEX Z-GUARD PASTE 113GM TUBE (FROM STOREROOM PRODUCT) TOP SCH ×2 (16:00→19:45)
[2023-01-04] MEDS: SUCRALFATE 1 GM TAB PO SCH ×2 (17:15→20:40)
[2023-01-04] MEDS: SINEMET 25-100 MG TAB PO SCH (17:16)
[2023-01-04] MEDS: LACTOBACILLUS ACIDOPHILUS CAP (BACID) PO SCH (17:16)
[2023-01-04] MEDS: TORSEMIDE 20 MG TAB PO SCH (17:16)
[2023-01-04 19:28] VITALS: BP 137/76
[2023-01-04] MEDS: SENNA 8.6 MG TAB (SENOKOT) PO SCH (20:40)
[2023-01-04] MEDS: ACETAMINOPHEN 500 MG TAB PO SCH (20:40)
[2023-01-04] MEDS: DOCUSATE SODIUM 100MG CAPSULE PO SCH (20:40)
[2023-01-04] MEDS: SIMVASTATIN 40 MG TAB PO SCH (20:40)
[2023-01-04] MEDS: guaiFENesin 200 MG TAB PO SCH (20:40)
[2023-01-04] MEDS: MEMANTINE 5MG TABLET (NAMENDA) PO SCH (20:40)
[2023-01-04] MEDS: DABIGATRAN ETEXILATE 75 MG CAP (PRADAXA) PO SCH (20:41)
[2023-01-05] MEDS: cefTRIAXone SOD 1 GM in D5W MINI-BAG PLUS 50 ML IV SCH (03:45)
[2023-01-05 05:47] LABS: BASO % 0.4 % (0.0-1.0); EOS # 0.3 10^3/uL (0.0-0.5); EOS % 4.4 % (0.0-3.0); HEMOGLOBIN 13.4 g/dl (13.5-17.5); LYMPH # 1.7 10^3/uL (1.5-5.0); LYMPH % 21.4 % (24.0-44.0); MEAN CORPUSCULAR HEMOGLOBIN 29.6 pg (27.0-33.0); MEAN CORPUSCULAR HGB CONC 31.9 g/dl (32.0-36.5); MEAN CORPUSCULAR VOLUME 92.9 fl (80.0-96.0); MONO % 12.5 % (2.0-8.0); NEUTROPHILS # 4.7 10^3/uL (1.5-8.5); NEUTROPHILS % 60.4 % (36.0-66.0); PLATELET COUNT, AUTOMATED 193 10^3/uL (150-450); RED BLOOD COUNT 4.52 10^6/uL (4.30-6.10); WHITE BLOOD COUNT 7.8 10^3/uL (4.0-10.0)
[2023-01-05 06:00] VITALS: BP 144/68
[2023-01-05 06:11] LABS: ALKALINE PHOSPHATASE 57 U/L (46-116); ALT/SGPT 34 U/L (7.0-40); AST/SGOT 8 U/L (<34); BILIRUBIN,TOTAL 0.3 MG/DL (0.3-1.2); BLOOD UREA NITROGEN 22 MG/DL (9-23); CALCIUM LEVEL 8.3 MG/DL (8.3-10.6); CARBON DIOXIDE LEVEL 31 MMOL/L (20-31); CHLORIDE LEVEL 103 MMOL/L (98-107); CREATININE FOR GFR 0.92 MG/DL (0.70-1.30); GLOMERULAR FILTRATION RATE > 60.0 (>42); GLUCOSE, FASTING 83 MG/DL (74-106); POTASSIUM SERUM 3.7 MMOL/L (3.5-5.1); SODIUM LEVEL 139 MMOL/L (136-145); TOTAL PROTEIN 5.8 G/DL (5.7-8.2)
[2023-01-05] MEDS: ASPIRIN 81MG ENTERIC TABLET PO SCH (08:29)
[2023-01-05] MEDS: PANTOPRAZOLE 40MG TAB (PROTONIX) PO SCH (08:30)
[2023-01-05] MEDS: guaiFENesin 200 MG TAB PO SCH ×2 (08:30→20:10)
[2023-01-05] MEDS: MULTIVITAMINS/MINERALS THERAP 1 TAB PO SCH (08:30)
[2023-01-05] MEDS: predniSONE 5 MG TAB PO SCH (08:30)
[2023-01-05] MEDS: MEMANTINE 5MG TABLET (NAMENDA) PO SCH ×2 (08:30→20:11)
[2023-01-05] MEDS: DONEPEZIL 5 MG TAB PO SCH (08:30)
[2023-01-05] MEDS: ACETAMINOPHEN 500 MG TAB PO SCH ×2 (08:30→20:10)
[2023-01-05] MEDS: VENLAFAXINE **XR** 37.5 MG CAPSULE PO SCH (08:30)
[2023-01-05] MEDS: DABIGATRAN ETEXILATE 75 MG CAP (PRADAXA) PO SCH ×2 (08:30→20:11)
[2023-01-05] MEDS: SINEMET 25-100 MG TAB PO SCH ×3 (08:30→17:31)
[2023-01-05] MEDS: POTASSIUM CHLORIDE 10MEQ SR TABLET PO SCH (08:31)
[2023-01-05] MEDS: REMEDY PHYTOPLEX Z-GUARD PASTE 113GM TUBE (FROM STOREROOM PRODUCT) TOP SCH ×3 (08:31→20:11)
[2023-01-05] MEDS: DOCUSATE SODIUM 100MG CAPSULE PO SCH ×2 (08:31→20:11)
[2023-01-05] MEDS: ASCORBIC ACID 500 MG TAB PO SCH (08:31)
[2023-01-05] MEDS: SUCRALFATE 1 GM TAB PO SCH ×4 (08:31→20:11)
[2023-01-05] MEDS: LACTOBACILLUS ACIDOPHILUS CAP (BACID) PO SCH ×2 (08:31→17:30)
[2023-01-05 14:00] VITALS: BP 148/70
[2023-01-05] MEDS: TORSEMIDE 20 MG TAB PO SCH (17:31)
[2023-01-05 20:00] VITALS: BP 122/87
[2023-01-05] MEDS: SIMVASTATIN 40 MG TAB PO SCH (20:11)
[2023-01-05] MEDS: SENNA 8.6 MG TAB (SENOKOT) PO SCH (20:11)
[2023-01-06] MEDS: cefTRIAXone SOD 1 GM in D5W MINI-BAG PLUS 50 ML IV SCH (03:57)
[2023-01-06 06:00] VITALS: BP 148/83
[2023-01-06] MEDS: SINEMET 25-100 MG TAB PO SCH ×3 (08:26→17:50)
[2023-01-06] MEDS: LACTOBACILLUS ACIDOPHILUS CAP (BACID) PO SCH ×2 (08:27→17:50)
[2023-01-06] MEDS: MULTIVITAMINS/MINERALS THERAP 1 TAB PO SCH (08:27)
[2023-01-06] MEDS: DOCUSATE SODIUM 100MG CAPSULE PO SCH ×2 (08:27→20:15)
[2023-01-06] MEDS: SUCRALFATE 1 GM TAB PO SCH ×4 (08:27→20:15)
[2023-01-06] MEDS: DABIGATRAN ETEXILATE 75 MG CAP (PRADAXA) PO SCH ×2 (08:27→20:14)
[2023-01-06] MEDS: ACETAMINOPHEN 500 MG TAB PO SCH ×2 (08:27→20:14)
[2023-01-06] MEDS: VENLAFAXINE **XR** 37.5 MG CAPSULE PO SCH (08:27)
[2023-01-06] MEDS: DONEPEZIL 5 MG TAB PO SCH (08:28)
[2023-01-06] MEDS: TORSEMIDE 20 MG TAB PO SCH ×2 (08:28→17:50)
[2023-01-06] MEDS: PANTOPRAZOLE 40MG TAB (PROTONIX) PO SCH (08:28)
[2023-01-06] MEDS: guaiFENesin 200 MG TAB PO SCH ×2 (08:28→20:13)
[2023-01-06] MEDS: POTASSIUM CHLORIDE 10MEQ SR TABLET PO SCH (08:28)
[2023-01-06] MEDS: MEMANTINE 5MG TABLET (NAMENDA) PO SCH ×2 (08:28→20:15)
[2023-01-06] MEDS: ASPIRIN 81MG ENTERIC TABLET PO SCH (08:28)
[2023-01-06] MEDS: ASCORBIC ACID 500 MG TAB PO SCH (08:28)
[2023-01-06] MEDS: predniSONE 5 MG TAB PO SCH (08:29)
[2023-01-06] MEDS: REMEDY PHYTOPLEX Z-GUARD PASTE 113GM TUBE (FROM STOREROOM PRODUCT) TOP SCH ×3 (08:29→20:16)
[2023-01-06 14:00] VITALS: BP 120/63
[2023-01-06] MEDS: SENNA 8.6 MG TAB (SENOKOT) PO SCH (20:15)
[2023-01-06] MEDS: SIMVASTATIN 40 MG TAB PO SCH (20:15)
[2023-01-06 21:00] VITALS: BP 152/94
[2023-01-07] MEDS: cefTRIAXone SOD 1 GM in D5W MINI-BAG PLUS 50 ML IV SCH (04:03)
[2023-01-07 06:00] VITALS: BP 125/71
[2023-01-07] MEDS: DABIGATRAN ETEXILATE 75 MG CAP (PRADAXA) PO SCH ×2 (08:12→20:55)
[2023-01-07] MEDS: ASCORBIC ACID 500 MG TAB PO SCH (08:12)
[2023-01-07] MEDS: SINEMET 25-100 MG TAB PO SCH ×3 (08:12→17:23)
[2023-01-07] MEDS: ASPIRIN 81MG ENTERIC TABLET PO SCH (08:12)
[2023-01-07] MEDS: MEMANTINE 5MG TABLET (NAMENDA) PO SCH ×2 (08:13→20:56)
[2023-01-07] MEDS: DOCUSATE SODIUM 100MG CAPSULE PO SCH ×2 (08:13→20:55)
[2023-01-07] MEDS: guaiFENesin 200 MG TAB PO SCH ×2 (08:13→20:56)
[2023-01-07] MEDS: SUCRALFATE 1 GM TAB PO SCH ×4 (08:13→20:56)
[2023-01-07] MEDS: ACETAMINOPHEN 500 MG TAB PO SCH ×2 (08:13→20:55)
[2023-01-07] MEDS: TORSEMIDE 20 MG TAB PO SCH ×2 (08:13→17:24)
[2023-01-07] MEDS: LACTOBACILLUS ACIDOPHILUS CAP (BACID) PO SCH ×2 (08:13→17:24)
[2023-01-07] MEDS: VENLAFAXINE **XR** 37.5 MG CAPSULE PO SCH (08:13)
[2023-01-07] MEDS: POTASSIUM CHLORIDE 10MEQ SR TABLET PO SCH (08:13)
[2023-01-07] MEDS: PANTOPRAZOLE 40MG TAB (PROTONIX) PO SCH (08:13)
[2023-01-07] MEDS: MULTIVITAMINS/MINERALS THERAP 1 TAB PO SCH (08:14)
[2023-01-07] MEDS: DONEPEZIL 5 MG TAB PO SCH (08:14)
[2023-01-07] MEDS: predniSONE 5 MG TAB PO SCH (08:14)
[2023-01-07] MEDS: REMEDY PHYTOPLEX Z-GUARD PASTE 113GM TUBE (FROM STOREROOM PRODUCT) TOP SCH ×3 (08:15→20:57)
[2023-01-07 14:00] VITALS: BP 137/78
[2023-01-07 20:00] VITALS: BP 139/67
[2023-01-07] MEDS: SIMVASTATIN 40 MG TAB PO SCH (20:55)
[2023-01-07] MEDS: SENNA 8.6 MG TAB (SENOKOT) PO SCH (20:55)
[2023-01-08 06:00] VITALS: BP 143/70
[2023-01-08 06:38] LABS: BASO # 0.1 10^3/uL (0.0-0.2); BASO % 0.6 % (0.0-1.0); EOS # 0.3 10^3/uL (0.0-0.5); EOS % 2.7 % (0.0-3.0); HEMOGLOBIN 13.4 g/dl (13.5-17.5); LYMPH # 2.7 10^3/uL (1.5-5.0); LYMPH % 25.3 % (24.0-44.0); MEAN CORPUSCULAR HEMOGLOBIN 29.3 pg (27.0-33.0); MEAN CORPUSCULAR HGB CONC 31.2 g/dl (32.0-36.5); MEAN CORPUSCULAR VOLUME 94.1 fl (80.0-96.0); MONO # 1.1 10^3/uL (0.0-0.8); MONO % 9.9 % (2.0-8.0); NEUTROPHILS # 6.4 10^3/uL (1.5-8.5); NEUTROPHILS % 59.4 % (36.0-66.0); PLATELET COUNT, AUTOMATED 222 10^3/uL (150-450); RED BLOOD COUNT 4.57 10^6/uL (4.30-6.10); WHITE BLOOD COUNT 10.8 10^3/uL (4.0-10.0)
[2023-01-08 07:07] LABS: BLOOD UREA NITROGEN 31 MG/DL (9-23); CALCIUM LEVEL 8.5 MG/DL (8.3-10.6); CARBON DIOXIDE LEVEL 32 MMOL/L (20-31); CHLORIDE LEVEL 101 MMOL/L (98-107); CREATININE FOR GFR 1.16 MG/DL (0.70-1.30); GLOMERULAR FILTRATION RATE > 60.0 (>42); GLUCOSE, FASTING 86 MG/DL (74-106); POTASSIUM SERUM 3.3 MMOL/L (3.5-5.1); SODIUM LEVEL 141 MMOL/L (136-145)
[2023-01-08] MEDS: guaiFENesin 200 MG TAB PO SCH ×2 (09:13→20:24)
[2023-01-08] MEDS: LACTOBACILLUS ACIDOPHILUS CAP (BACID) PO SCH ×2 (09:13→17:42)
[2023-01-08] MEDS: POTASSIUM CHLORIDE 10MEQ SR TABLET PO SCH (09:13)
[2023-01-08] MEDS: predniSONE 5 MG TAB PO SCH (09:14)
[2023-01-08] MEDS: MULTIVITAMINS/MINERALS THERAP 1 TAB PO SCH (09:14)
[2023-01-08] MEDS: DOCUSATE SODIUM 100MG CAPSULE PO SCH ×2 (09:14→20:24)
[2023-01-08] MEDS: AMOXICILLIN 500 MG CAP PO SCH ×4 (09:14→20:24)
[2023-01-08] MEDS: PANTOPRAZOLE 40MG TAB (PROTONIX) PO SCH (09:14)
[2023-01-08] MEDS: MEMANTINE 5MG TABLET (NAMENDA) PO SCH ×2 (09:14→20:24)
[2023-01-08] MEDS: ASPIRIN 81MG ENTERIC TABLET PO SCH (09:14)
[2023-01-08] MEDS: ASCORBIC ACID 500 MG TAB PO SCH (09:14)
[2023-01-08] MEDS: SINEMET 25-100 MG TAB PO SCH ×3 (09:14→17:42)
[2023-01-08] MEDS: DABIGATRAN ETEXILATE 75 MG CAP (PRADAXA) PO SCH ×2 (09:14→20:24)
[2023-01-08] MEDS: VENLAFAXINE **XR** 37.5 MG CAPSULE PO SCH (09:14)
[2023-01-08] MEDS: TORSEMIDE 20 MG TAB PO SCH ×2 (09:15→17:42)
[2023-01-08] MEDS: SUCRALFATE 1 GM TAB PO SCH ×4 (09:15→20:24)
[2023-01-08] MEDS: DONEPEZIL 5 MG TAB PO SCH (09:15)
[2023-01-08] MEDS: ACETAMINOPHEN 500 MG TAB PO SCH ×2 (09:15→20:25)
[2023-01-08] MEDS: REMEDY PHYTOPLEX Z-GUARD PASTE 113GM TUBE (FROM STOREROOM PRODUCT) TOP SCH ×3 (09:16→20:25)
[2023-01-08] MEDS ORDERED: POTASSIUM CHLORIDE 10MEQ SR TABLET PO ONE (10:45)
[2023-01-08 11:30] LABS: MAGNESIUM LEVEL 1.9 MG/DL (1.8-2.4)
[2023-01-08 14:00] VITALS: BP 121/70
[2023-01-08 20:00] VITALS: BP 123/81
[2023-01-08] MEDS: SIMVASTATIN 40 MG TAB PO SCH (20:24)
[2023-01-08] MEDS: SENNA 8.6 MG TAB (SENOKOT) PO SCH (20:24)
[2023-01-09 06:00] VITALS: BP 157/94
[2023-01-09 08:01] LABS: BLOOD UREA NITROGEN 27 MG/DL (9-23); CALCIUM LEVEL 8.7 MG/DL (8.3-10.6); CARBON DIOXIDE LEVEL 35 MMOL/L (20-31); CHLORIDE LEVEL 103 MMOL/L (98-107); CREATININE FOR GFR 1.05 MG/DL (0.70-1.30); GLOMERULAR FILTRATION RATE > 60.0 (>42); GLUCOSE, FASTING 80 MG/DL (74-106); POTASSIUM SERUM 3.5 MMOL/L (3.5-5.1); SODIUM LEVEL 143 MMOL/L (136-145)
[2023-01-09] MEDS: SUCRALFATE 1 GM TAB PO SCH ×4 (08:20→19:45)
[2023-01-09] MEDS: ACETAMINOPHEN 500 MG TAB PO SCH ×2 (08:20→19:46)
[2023-01-09] MEDS: DONEPEZIL 5 MG TAB PO SCH (08:20)
[2023-01-09] MEDS: MEMANTINE 5MG TABLET (NAMENDA) PO SCH ×2 (08:20→19:46)
[2023-01-09] MEDS: VENLAFAXINE **XR** 37.5 MG CAPSULE PO SCH (08:20)
[2023-01-09] MEDS: LACTOBACILLUS ACIDOPHILUS CAP (BACID) PO SCH ×2 (08:20→17:12)
[2023-01-09] MEDS: MULTIVITAMINS/MINERALS THERAP 1 TAB PO SCH (08:21)
[2023-01-09] MEDS: SINEMET 25-100 MG TAB PO SCH ×3 (08:21→17:12)
[2023-01-09] MEDS: PANTOPRAZOLE 40MG TAB (PROTONIX) PO SCH (08:21)
[2023-01-09] MEDS: AMOXICILLIN 500 MG CAP PO SCH ×4 (08:21→19:45)
[2023-01-09] MEDS: ASCORBIC ACID 500 MG TAB PO SCH (08:21)
[2023-01-09] MEDS: REMEDY PHYTOPLEX Z-GUARD PASTE 113GM TUBE (FROM STOREROOM PRODUCT) TOP SCH ×3 (08:21→19:46)
[2023-01-09] MEDS: POTASSIUM CHLORIDE 10MEQ SR TABLET PO SCH (08:21)
[2023-01-09] MEDS: ASPIRIN 81MG ENTERIC TABLET PO SCH (08:21)
[2023-01-09] MEDS: DABIGATRAN ETEXILATE 75 MG CAP (PRADAXA) PO SCH ×2 (08:21→19:46)
[2023-01-09] MEDS: guaiFENesin 200 MG TAB PO SCH ×2 (08:21→19:45)
[2023-01-09] MEDS: predniSONE 5 MG TAB PO SCH (08:21)
[2023-01-09] MEDS: DOCUSATE SODIUM 100MG CAPSULE PO SCH ×2 (08:21→19:21)
[2023-01-09 14:00] VITALS: BP 149/79
[2023-01-09] MEDS: TORSEMIDE 20 MG TAB PO SCH (17:13)
[2023-01-09] MEDS: SENNA 8.6 MG TAB (SENOKOT) PO SCH (19:21)
[2023-01-09] MEDS: SIMVASTATIN 40 MG TAB PO SCH (19:45)
[2023-01-09 20:00] VITALS: BP 139/88
[2023-01-10 06:00] VITALS: BP 153/94
[2023-01-10] MEDS: VENLAFAXINE **XR** 37.5 MG CAPSULE PO SCH (08:13)
[2023-01-10] MEDS: SINEMET 25-100 MG TAB PO SCH ×3 (08:13→16:47)
[2023-01-10] MEDS: LACTOBACILLUS ACIDOPHILUS CAP (BACID) PO SCH ×2 (08:13→16:46)
[2023-01-10] MEDS: SUCRALFATE 1 GM TAB PO SCH ×4 (08:13→20:42)
[2023-01-10] MEDS: PANTOPRAZOLE 40MG TAB (PROTONIX) PO SCH (08:13)
[2023-01-10] MEDS: DOCUSATE SODIUM 100MG CAPSULE PO SCH ×2 (08:13→20:42)
[2023-01-10] MEDS: DONEPEZIL 5 MG TAB PO SCH (08:13)
[2023-01-10] MEDS: ACETAMINOPHEN 500 MG TAB PO SCH ×2 (08:13→20:43)
[2023-01-10] MEDS: MULTIVITAMINS/MINERALS THERAP 1 TAB PO SCH (08:13)
[2023-01-10] MEDS: DABIGATRAN ETEXILATE 75 MG CAP (PRADAXA) PO SCH ×2 (08:13→20:41)
[2023-01-10] MEDS: ASCORBIC ACID 500 MG TAB PO SCH (08:13)
[2023-01-10] MEDS: ASPIRIN 81MG ENTERIC TABLET PO SCH (08:14)
[2023-01-10] MEDS: POTASSIUM CHLORIDE 10MEQ SR TABLET PO SCH (08:14)
[2023-01-10] MEDS: predniSONE 5 MG TAB PO SCH (08:14)
[2023-01-10] MEDS: MEMANTINE 5MG TABLET (NAMENDA) PO SCH ×2 (08:14→20:42)
[2023-01-10] MEDS: guaiFENesin 200 MG TAB PO SCH ×2 (08:17→20:41)
[2023-01-10] MEDS: REMEDY PHYTOPLEX Z-GUARD PASTE 113GM TUBE (FROM STOREROOM PRODUCT) TOP SCH ×3 (08:18→20:43)
[2023-01-10 14:00] VITALS: BP 131/72
[2023-01-10] MEDS: TORSEMIDE 20 MG TAB PO SCH (16:47)
[2023-01-10 20:00] VITALS: BP 129/64
[2023-01-10] MEDS: SENNA 8.6 MG TAB (SENOKOT) PO SCH (20:42)
[2023-01-10] MEDS: SIMVASTATIN 40 MG TAB PO SCH (20:43)
[2023-01-11 06:00] VITALS: BP 144/86
[2023-01-11 07:15] LABS: BASO # 0.1 10^3/uL (0.0-0.2); BASO % 0.5 % (0.0-1.0); EOS # 0.3 10^3/uL (0.0-0.5); EOS % 2.5 % (0.0-3.0); HEMATOCRIT 41.2 % (42.0-52.0); HEMOGLOBIN 13.2 g/dl (13.5-17.5); LYMPH # 2.9 10^3/uL (1.5-5.0); LYMPH % 28.5 % (24.0-44.0); MEAN CORPUSCULAR HEMOGLOBIN 29.9 pg (27.0-33.0); MEAN CORPUSCULAR VOLUME 93.4 fl (80.0-96.0); MONO # 0.9 10^3/uL (0.0-0.8); MONO % 8.7 % (2.0-8.0); NEUTROPHILS % 58.3 % (36.0-66.0); PLATELET COUNT, AUTOMATED 235 10^3/uL (150-450); RED BLOOD COUNT 4.41 10^6/uL (4.30-6.10); WHITE BLOOD COUNT 10.2 10^3/uL (4.0-10.0)
[2023-01-11 07:41] LABS: BLOOD UREA NITROGEN 24 MG/DL (9-23); CALCIUM LEVEL 8.9 MG/DL (8.3-10.6); CARBON DIOXIDE LEVEL 32 MMOL/L (20-31); CHLORIDE LEVEL 101 MMOL/L (98-107); CREATININE FOR GFR 1.04 MG/DL (0.70-1.30); GLOMERULAR FILTRATION RATE > 60.0 (>42); GLUCOSE, FASTING 81 MG/DL (74-106); POTASSIUM SERUM 3.5 MMOL/L (3.5-5.1); SODIUM LEVEL 141 MMOL/L (136-145)
[2023-01-11] MEDS: guaiFENesin 200 MG TAB PO SCH ×2 (08:40→20:47)
[2023-01-11] MEDS: VENLAFAXINE **XR** 37.5 MG CAPSULE PO SCH (08:41)
[2023-01-11] MEDS: SUCRALFATE 1 GM TAB PO SCH ×4 (08:41→20:47)
[2023-01-11] MEDS: predniSONE 5 MG TAB PO SCH (08:41)
[2023-01-11] MEDS: MEMANTINE 5MG TABLET (NAMENDA) PO SCH ×2 (08:41→20:48)
[2023-01-11] MEDS: DOCUSATE SODIUM 100MG CAPSULE PO SCH ×2 (08:41→21:00)
[2023-01-11] MEDS: ASCORBIC ACID 500 MG TAB PO SCH (08:41)
[2023-01-11] MEDS: ASPIRIN 81MG ENTERIC TABLET PO SCH (08:41)
[2023-01-11] MEDS: LACTOBACILLUS ACIDOPHILUS CAP (BACID) PO SCH ×2 (08:41→17:04)
[2023-01-11] MEDS: DONEPEZIL 5 MG TAB PO SCH (08:41)
[2023-01-11] MEDS: SINEMET 25-100 MG TAB PO SCH ×3 (08:41→17:04)
[2023-01-11] MEDS: PANTOPRAZOLE 40MG TAB (PROTONIX) PO SCH (08:41)
[2023-01-11] MEDS: MULTIVITAMINS/MINERALS THERAP 1 TAB PO SCH (08:41)
[2023-01-11] MEDS: ACETAMINOPHEN 500 MG TAB PO SCH ×2 (08:42→20:48)
[2023-01-11] MEDS: POTASSIUM CHLORIDE 10MEQ SR TABLET PO SCH (08:42)
[2023-01-11] MEDS: REMEDY PHYTOPLEX Z-GUARD PASTE 113GM TUBE (FROM STOREROOM PRODUCT) TOP SCH ×3 (08:42→21:00)
[2023-01-11] MEDS: DABIGATRAN ETEXILATE 75 MG CAP (PRADAXA) PO SCH ×2 (08:44→20:49)
[2023-01-11 14:00] VITALS: BP 129/65
[2023-01-11] MEDS: TORSEMIDE 10 MG TABLET PO SCH (17:05)
[2023-01-11 20:00] VITALS: BP 136/79
[2023-01-11] MEDS: SIMVASTATIN 40 MG TAB PO SCH (20:48)
[2023-01-11] MEDS: SENNA 8.6 MG TAB (SENOKOT) PO SCH (20:48)
[2023-01-11] MEDS: LORATADINE 10 MG TAB PO SCH (20:48)
[2023-01-11] MEDS: SODIUM CHLORIDE NASAL 0.65% SPRAY BTL (OCEAN) SCH (20:49)
[2023-01-11] MEDS: FLUTICASONE PROP 0.05% NASAL SPRAY 16 GM (FLONASE) NARES SCH (21:05)
[2023-01-12 06:00] VITALS: BP 133/81
[2023-01-12] MEDS: PANTOPRAZOLE 40MG TAB (PROTONIX) PO SCH (08:46)
[2023-01-12] MEDS: MULTIVITAMINS/MINERALS THERAP 1 TAB PO SCH (08:46)
[2023-01-12] MEDS: DONEPEZIL 5 MG TAB PO SCH (08:46)
[2023-01-12] MEDS: DOCUSATE SODIUM 100MG CAPSULE PO SCH ×2 (08:46→20:08)
[2023-01-12] MEDS: VENLAFAXINE **XR** 37.5 MG CAPSULE PO SCH (08:46)
[2023-01-12] MEDS: ASCORBIC ACID 500 MG TAB PO SCH (08:46)
[2023-01-12] MEDS: ASPIRIN 81MG ENTERIC TABLET PO SCH (08:47)
[2023-01-12] MEDS: guaiFENesin 200 MG TAB PO SCH ×2 (08:47→20:09)
[2023-01-12] MEDS: SINEMET 25-100 MG TAB PO SCH ×3 (08:47→17:27)
[2023-01-12] MEDS: SUCRALFATE 1 GM TAB PO SCH ×4 (08:47→20:08)
[2023-01-12] MEDS: MEMANTINE 5MG TABLET (NAMENDA) PO SCH ×2 (08:47→20:09)
[2023-01-12] MEDS: LACTOBACILLUS ACIDOPHILUS CAP (BACID) PO SCH ×2 (08:47→17:27)
[2023-01-12] MEDS: DABIGATRAN ETEXILATE 75 MG CAP (PRADAXA) PO SCH ×2 (08:48→20:09)
[2023-01-12] MEDS: ACETAMINOPHEN 500 MG TAB PO SCH ×2 (08:48→20:09)
[2023-01-12] MEDS: POTASSIUM CHLORIDE 10MEQ SR TABLET PO SCH (08:48)
[2023-01-12] MEDS: REMEDY PHYTOPLEX Z-GUARD PASTE 113GM TUBE (FROM STOREROOM PRODUCT) TOP SCH ×3 (08:50→20:10)
[2023-01-12] MEDS: SODIUM CHLORIDE NASAL 0.65% SPRAY BTL (OCEAN) SCH ×3 (08:50→20:09)
[2023-01-12] MEDS: FLUTICASONE PROP 0.05% NASAL SPRAY 16 GM (FLONASE) NARES SCH ×2 (08:50→20:09)
[2023-01-12] MEDS: predniSONE 10MG TAB PO SCH (08:53)
[2023-01-12] MEDS: predniSONE 1 MG TAB PO SCH (08:53)
[2023-01-12 14:00] VITALS: BP 123/78
[2023-01-12] MEDS: TORSEMIDE 10 MG TABLET PO SCH (17:27)
[2023-01-12 20:00] VITALS: BP 136/77
[2023-01-12] MEDS: LORATADINE 10 MG TAB PO SCH (20:08)
[2023-01-12] MEDS: SENNA 8.6 MG TAB (SENOKOT) PO SCH (20:08)
[2023-01-12] MEDS: SIMVASTATIN 40 MG TAB PO SCH (20:09)
[2023-01-13 06:00] VITALS: BP 145/71
[2023-01-13] MEDS: DOCUSATE SODIUM 100MG CAPSULE PO SCH ×2 (08:17→19:48)
[2023-01-13] MEDS: MULTIVITAMINS/MINERALS THERAP 1 TAB PO SCH (08:17)
[2023-01-13] MEDS: guaiFENesin 200 MG TAB PO SCH ×2 (08:17→19:48)
[2023-01-13] MEDS: DABIGATRAN ETEXILATE 75 MG CAP (PRADAXA) PO SCH ×2 (08:17→19:49)
[2023-01-13] MEDS: LACTOBACILLUS ACIDOPHILUS CAP (BACID) PO SCH ×2 (08:17→17:21)
[2023-01-13] MEDS: predniSONE 1 MG TAB PO SCH (08:17)
[2023-01-13] MEDS: POTASSIUM CHLORIDE 10MEQ SR TABLET PO SCH (08:17)
[2023-01-13] MEDS: MEMANTINE 5MG TABLET (NAMENDA) PO SCH ×2 (08:17→19:49)
[2023-01-13] MEDS: ACETAMINOPHEN 500 MG TAB PO SCH ×2 (08:17→19:48)
[2023-01-13] MEDS: ASCORBIC ACID 500 MG TAB PO SCH (08:17)
[2023-01-13] MEDS: ASPIRIN 81MG ENTERIC TABLET PO SCH (08:18)
[2023-01-13] MEDS: VENLAFAXINE **XR** 37.5 MG CAPSULE PO SCH (08:18)
[2023-01-13] MEDS: PANTOPRAZOLE 40MG TAB (PROTONIX) PO SCH (08:18)
[2023-01-13] MEDS: DONEPEZIL 5 MG TAB PO SCH (08:18)
[2023-01-13] MEDS: SINEMET 25-100 MG TAB PO SCH ×3 (08:18→17:21)
[2023-01-13] MEDS: predniSONE 10MG TAB PO SCH (08:18)
[2023-01-13] MEDS: SUCRALFATE 1 GM TAB PO SCH ×4 (08:18→19:48)
[2023-01-13] MEDS: SODIUM CHLORIDE NASAL 0.65% SPRAY BTL (OCEAN) SCH ×3 (08:18→19:49)
[2023-01-13] MEDS: REMEDY PHYTOPLEX Z-GUARD PASTE 113GM TUBE (FROM STOREROOM PRODUCT) TOP SCH ×3 (08:19→19:49)
[2023-01-13] MEDS: FLUTICASONE PROP 0.05% NASAL SPRAY 16 GM (FLONASE) NARES SCH ×2 (08:19→19:49)
[2023-01-13 10:22] LABS: BASO % 0.3 % (0.0-1.0); EOS # 0.2 10^3/uL (0.0-0.5); EOS % 1.8 % (0.0-3.0); HEMATOCRIT 45.1 % (42.0-52.0); HEMOGLOBIN 14.3 g/dl (13.5-17.5); LYMPH # 2.4 10^3/uL (1.5-5.0); MEAN CORPUSCULAR HEMOGLOBIN 29.7 pg (27.0-33.0); MEAN CORPUSCULAR HGB CONC 31.7 g/dl (32.0-36.5); MEAN CORPUSCULAR VOLUME 93.8 fl (80.0-96.0); MONO # 0.7 10^3/uL (0.0-0.8); MONO % 6.3 % (2.0-8.0); NEUTROPHILS # 8.3 10^3/uL (1.5-8.5); NEUTROPHILS % 70.6 % (36.0-66.0); PLATELET COUNT, AUTOMATED 266 10^3/uL (150-450); RED BLOOD COUNT 4.81 10^6/uL (4.30-6.10); WHITE BLOOD COUNT 11.8 10^3/uL (4.0-10.0)
[2023-01-13 10:46] LABS: BLOOD UREA NITROGEN 25 MG/DL (9-23); C REACTIVE PROTEIN QUANTITATIV < 0.40 MG/DL (<1.0); CALCIUM LEVEL 8.9 MG/DL (8.3-10.6); CARBON DIOXIDE LEVEL 31 MMOL/L (20-31); CHLORIDE LEVEL 100 MMOL/L (98-107); CREATININE FOR GFR 1.27 MG/DL (0.70-1.30); GLOMERULAR FILTRATION RATE 58.4 (>42); GLUCOSE, FASTING 114 MG/DL (74-106); POTASSIUM SERUM 3.7 MMOL/L (3.5-5.1); SODIUM LEVEL 139 MMOL/L (136-145)
[2023-01-13 10:50] LABS: ERYTHROCYTE SEDIMENTATION RATE 33 mm/hr (0-20)
[2023-01-13 14:00] VITALS: BP 126/68
[2023-01-13] MEDS: TORSEMIDE 10 MG TABLET PO SCH (17:22)
[2023-01-13] MEDS: SIMVASTATIN 40 MG TAB PO SCH (19:48)
[2023-01-13] MEDS: SENNA 8.6 MG TAB (SENOKOT) PO SCH (19:48)
[2023-01-13] MEDS: LORATADINE 10 MG TAB PO SCH (19:48)
[2023-01-13 20:00] VITALS: BP 130/70
[2023-01-14 06:00] VITALS: BP 151/74
[2023-01-14] MEDS: LACTOBACILLUS ACIDOPHILUS CAP (BACID) PO SCH (08:54)
[2023-01-14] MEDS: MULTIVITAMINS/MINERALS THERAP 1 TAB PO SCH (08:54)
[2023-01-14] MEDS: VENLAFAXINE **XR** 37.5 MG CAPSULE PO SCH (08:54)
[2023-01-14] MEDS: MEMANTINE 5MG TABLET (NAMENDA) PO SCH (08:54)
[2023-01-14] MEDS: ASCORBIC ACID 500 MG TAB PO SCH (08:55)
[2023-01-14] MEDS: DOCUSATE SODIUM 100MG CAPSULE PO SCH (08:55)
[2023-01-14] MEDS: SUCRALFATE 1 GM TAB PO SCH (08:55)
[2023-01-14] MEDS: ASPIRIN 81MG ENTERIC TABLET PO SCH (08:55)
[2023-01-14] MEDS: SINEMET 25-100 MG TAB PO SCH (08:55)
[2023-01-14] MEDS: DABIGATRAN ETEXILATE 75 MG CAP (PRADAXA) PO SCH (08:55)
[2023-01-14] MEDS: ACETAMINOPHEN 500 MG TAB PO SCH (08:55)
[2023-01-14] MEDS: PANTOPRAZOLE 40MG TAB (PROTONIX) PO SCH (08:56)
[2023-01-14] MEDS: FLUTICASONE PROP 0.05% NASAL SPRAY 16 GM (FLONASE) NARES SCH (08:56)
[2023-01-14] MEDS: predniSONE 10MG TAB PO SCH (08:56)
[2023-01-14] MEDS: guaiFENesin 200 MG TAB PO SCH (08:56)
[2023-01-14] MEDS: SODIUM CHLORIDE NASAL 0.65% SPRAY BTL (OCEAN) SCH (08:56)
[2023-01-14] MEDS: predniSONE 1 MG TAB PO SCH (08:56)
[2023-01-14] MEDS: DONEPEZIL 5 MG TAB PO SCH (08:56)
[2023-01-14] MEDS: POTASSIUM CHLORIDE 10MEQ SR TABLET PO SCH (08:56)
[2023-01-14] MEDS: REMEDY PHYTOPLEX Z-GUARD PASTE 113GM TUBE (FROM STOREROOM PRODUCT) TOP SCH (08:57)
[2023-01-14] MEDS ORDERED: VENL37.598 PO (09:39)
[2023-01-14] MEDS ORDERED: ASPI-161 PO (09:39)
[2023-01-14] MEDS ORDERED: TORS10TA3 PO (09:39)
[2023-01-14] MEDS ORDERED: CARB25TA9 PO ×2 (09:39)
[2023-01-14] MEDS ORDERED: MEMA10TA19 PO (09:39)
[2023-01-14] MEDS ORDERED: SIMV40TA20 PO (09:39)
[2023-01-14] MEDS ORDERED: PRAD150C6 PO (09:39)
[2023-01-14] MEDS ORDERED: PRED1TABL PO (09:39)
[2023-01-14] MEDS ORDERED: CARA1TAB6 PO (09:39)
[2023-01-14] MEDS ORDERED: POTA-298 PO (09:39)
[2023-01-14] MEDS ORDERED: PRED10TA2 PO (09:39)
[2023-01-14] MEDS ORDERED: DONE5TAB82 PO (09:39)
[2023-01-21 19:07] LABS: ANTINUCLEAR ANTIBODIES DIRECT Negative (Negative); CYCLIC CITRULLINATED PEPTIDE 7 units (0-19); HLA-B27 Negative (.)
== END 2023-01-14 10:15 | disposition home or self-care (01) | DRG 57 ==
LOC: M PM&R 14:40
PROVIDERS: ADMIT Physical Medicine & Rehabilitation; ATTEND Physical Medicine & Rehabilitation
DX: G20 Parkinson's disease (principal); G72.0 Drug-induced myopathy; N39.0 Urinary tract infection, site not specified; I48.91 Unspecified atrial fibrillation; R26.89 Other abnormalities of gait and mobility; G47.33 Obstructive sleep apnea (adult) (pediatric); Z86.73 Personal history of transient ischemic attack (TIA), and cerebral infarction without residual deficits; M54.9 Dorsalgia, unspecified; G89.29 Other chronic pain; E78.5 Hyperlipidemia, unspecified; N40.0 Benign prostatic hyperplasia without lower urinary tract symptoms; F03.90 Unspecified dementia, unspecified severity, without behavioral disturbance, psychotic disturbance, mood disturbance, and anxiety; M35.3 Polymyalgia rheumatica; Z74.09 Other reduced mobility; Z74.1 Need for assistance with personal care; T38.0X5A Adverse effect of glucocorticoids and synthetic analogues, initial encounter; R53.1 Weakness; Z79.899 Other long term (current) drug therapy; Z79.82 Long term (current) use of aspirin; I87.8 Other specified disorders of veins; F32.A Depression, unspecified; F41.9 Anxiety disorder, unspecified

== ENCOUNTER → 2023-01-19 | Outpatient (REF) | payer MEDICARE, OTHER ==
[~2023-01-19] MED LIST changes: +PRED1TABL PO; +TORS10TA3 PO
== END ==
LOC: M LAB REF 11:56
PROVIDERS: ATTEND Internal Medicine
DX: M35.3 Polymyalgia rheumatica (principal)

== ENCOUNTER → 2023-02-02 | Outpatient (REF) | payer MEDICARE, OTHER ==
[2023-02-03 11:12] LABS: APPEARANCE, URINE CLEAR (CLEAR); BACTERIA, URINE AUTO NEGATIVE (NEGATIVE); BILIRUBIN, URINE AUTO NEGATIVE (NEGATIVE); BLOOD, URINE BLOOD 3+ (NEGATIVE); COLOR, URINE COLORLESS (YELLOW); GLUCOSE, URINE (UA) AUTO NEGATIVE (NEGATIVE); KETONE, URINE AUTO NEGATIVE (NEGATIVE); LEUKOCYTE ESTERASE, URINE AUTO 2+ (NEGATIVE); NITRITE, URINE AUTO NEGATIVE (NEGATIVE); PROTEIN, URINE AUTO NEGATIVE (NEGATIVE); RBC, URINE AUTO 30 /HPF (0-3); SPECIFIC GRAVITY URINE AUTO 1.004 (1.002-1.035); SQUAMOUS EPITHELIAL CELL UR AU 0 /HPF (0-6); UROBILINOGEN, URINE AUTO 0.2 mg/dL (0.0-2.0); WBC, URINE AUTO 20 /HPF (0-3)
== END ==
LOC: M LABSMT 16:15
PROVIDERS: ATTEND Urology
DX: R33.9 Retention of urine, unspecified (principal)

== ENCOUNTER → 2023-02-17 | Outpatient (REF) | payer MEDICARE, OTHER ==
[~2023-02-17] MED LIST changes: +CALC-218 PO; +CVS500CA5 PO; +MEMA1TAB3 PO; +VITA500C24 PO
[2023-02-17 18:39] LABS: INR 1.06
== END ==
LOC: M LAB REF 16:24
PROVIDERS: ATTEND Internal Medicine
DX: Z01.818 Encounter for other preprocedural examination (principal); R33.9 Retention of urine, unspecified

== ENCOUNTER → 2023-02-17 | Outpatient (CLI) | payer MEDICARE, OTHER | LOC: M PLAIMG 14:18 | PROVIDERS: ATTEND Urology | DX: Z01.818 Encounter for other preprocedural examination (principal); R33.9 Retention of urine, unspecified ==

== ENCOUNTER → 2023-02-19 | Outpatient (REF) | payer MEDICARE, OTHER ==
[~2023-02-19] MED LIST changes: +HYDR-3713 PO; +MACR100C43 PO; +NITR100C2
== END ==
LOC: M SMT 12:58
PROVIDERS: ATTEND Urology
DX: N39.0 Urinary tract infection, site not specified (principal)

== ENCOUNTER 2023-03-01 08:02 | Day surgery (SDC) | payer MEDICARE, OTHER ==
[~2023-03-01] VITALS: Ht 160 cm; Wt 92.1 kg
[~2023-03-01 08:02] MED LIST changes: -HYDR-3713 PO; +LIDOCAINE 1% SDV 30ML VIAL As Ordered ONE; +LIDOCAINE 2% 100MG/5ML SDV (FOR ANES.) As Ordered ONE; -MACR100C43 PO; -NITR100C2; +ONDANSETRON 4MG 2ML VIAL As Ordered ONE; +ceFAZolin SOD 2 GM in IV 1 EA IV ONE; +propofoL 200 MG/20 ML VIAL As Ordered ONE
[2023-03-01] MEDS ORDERED: LR 1,000 ML IV SCH ×2 (08:30→10:05)
[2023-03-01] MEDS ORDERED: fentaNYL 100 MCG/2 ML INJECTION As Ordered ONE (08:51)
[2023-03-01] MEDS ORDERED: ceFAZolin SOD 2 GM in IV 1 EA IV ONE (09:00)
[2023-03-01] MEDS ORDERED: NITR100C2 (09:08)
[2023-03-01] MEDS ORDERED: AMPICILLIN SOD 1 GM in D5W MINI-BAG PLUS 50 ML IV ONE (09:10)
[2023-03-01] MEDS ORDERED: ACETAMINOPHEN 1000MG 100ML IV BAG As Ordered ONE (09:40)
[2023-03-01] MEDS ORDERED: PHENYLephrine 500MCG 5ML (100MCG/ML) SYRINGE As Ordered ONE (09:40)
[2023-03-01] MEDS ORDERED: fentaNYL 100 MCG/2 ML INJECTION IV PRN (10:05)
[2023-03-01] MEDS ORDERED: MORPHINE 2 MG/ML 1ML VIAL IV PRN (10:05)
[2023-03-01] MEDS ORDERED: oxyCODONE 5MG TAB PO PRN (10:05)
[2023-03-01] MEDS ORDERED: ONDANSETRON 4MG 2ML VIAL IV PRN (10:05)
[2023-03-01] MEDS ORDERED: MACR100C43 PO (10:09)
[2023-03-01] MEDS ORDERED: HYDR-3713 PO (10:09)
[2023-03-01 12:20] VITALS: BP 148/84; TEMP 97.2; O2SAT 95
== END 2023-03-01 12:27 | disposition home or self-care (01) ==
LOC: M SDC 08:02
PROVIDERS: ATTEND Urology
DX: R33.9 Retention of urine, unspecified (principal); I48.91 Unspecified atrial fibrillation; E78.5 Hyperlipidemia, unspecified; R60.9 Edema, unspecified; G47.33 Obstructive sleep apnea (adult) (pediatric); Z87.891 Personal history of nicotine dependence; Z79.899 Other long term (current) drug therapy; F32.A Depression, unspecified; Z79.01 Long term (current) use of anticoagulants; Z79.82 Long term (current) use of aspirin; F03.90 Unspecified dementia, unspecified severity, without behavioral disturbance, psychotic disturbance, mood disturbance, and anxiety
CPT/HCPCS: 51040; J0131; J0290; J1100; J2370; J2405; J3010

== ENCOUNTER 2023-03-22 11:38 | Inpatient (IN) | payer MEDICARE, OTHER ==
[~2023-03-22] VITALS: Ht 160 cm; Wt 92.9 kg
[~2023-03-22 11:38] MED LIST changes: +HYDR-3713 PO; -LIDOCAINE 1% SDV 30ML VIAL As Ordered ONE; -LIDOCAINE 2% 100MG/5ML SDV (FOR ANES.) As Ordered ONE; +MACR100C43 PO; +NITR100C2; -ONDANSETRON 4MG 2ML VIAL As Ordered ONE; +UNRESOLVED CLARIFICATION ENTRY XX SCH; -ceFAZolin SOD 2 GM in IV 1 EA IV ONE; -propofoL 200 MG/20 ML VIAL As Ordered ONE
[2023-03-22] MEDS ORDERED: NS 1,000 ML IV SCH (11:55)
[2023-03-22 12:34] LABS: BASO % 0.4 % (0.0-1.0); EOS # 0.7 10^3/uL (0.0-0.5); EOS % 6.8 % (0.0-3.0); HEMOGLOBIN 13.7 g/dl (13.5-17.5); LYMPH % 9.6 % (24.0-44.0); MEAN CORPUSCULAR HEMOGLOBIN 29.1 pg (27.0-33.0); MEAN CORPUSCULAR HGB CONC 31.1 g/dl (32.0-36.5); MEAN CORPUSCULAR VOLUME 93.4 fl (80.0-96.0); MONO # 0.9 10^3/uL (0.0-0.8); MONO % 8.4 % (2.0-8.0); NEUTROPHILS # 7.9 10^3/uL (1.5-8.5); NEUTROPHILS % 74.2 % (36.0-66.0); PLATELET COUNT, AUTOMATED 283 10^3/uL (150-450); RED BLOOD COUNT 4.71 10^6/uL (4.30-6.10); WHITE BLOOD COUNT 10.6 10^3/uL (4.0-10.0)
[2023-03-22 12:55] LABS: ACETAMINOPHEN LEVEL 7.6 UG/ML (10.0-20.0)
[2023-03-22 12:56] LABS: ALBUMIN 3.2 G/DL (3.2-5.2); ALKALINE PHOSPHATASE 71 U/L (46-116); ALT/SGPT < 9 U/L (7.0-40); AST/SGOT 18 U/L (<34); BILIRUBIN,DIRECT 0.1 MG/DL (<0.4); BILIRUBIN,TOTAL 0.5 MG/DL (0.3-1.2); BLOOD UREA NITROGEN 24 MG/DL (9-23); CALCIUM LEVEL 9.4 MG/DL (8.3-10.6); CARBON DIOXIDE LEVEL 28 MMOL/L (20-31); CHLORIDE LEVEL 106 MMOL/L (98-107); GLOMERULAR FILTRATION RATE > 60.0 (>42); GLUCOSE, FASTING 131 MG/DL (74-106); POTASSIUM SERUM 3.8 MMOL/L (3.5-5.1); SALICYLATE LEVEL < 3.0 MG/DL (<30); SODIUM LEVEL 142 MMOL/L (136-145); TOTAL PROTEIN 5.9 G/DL (5.7-8.2)
[2023-03-22 12:58] LABS: THYROID STIMULATING HORMONE 1.364 uIU/ML (0.55-4.78)
[2023-03-22 13:08] LABS: RSV AMPLIFICATION NEGATIVE (NEGATIVE)
[2023-03-22] MEDS ORDERED: ceFAZolin SOD 1 GM in D5W MINI-BAG PLUS 50 ML IV ONE (13:15)
[2023-03-22] MEDS ORDERED: MED REC IN PROGRESS XX SCH (13:30)
[2023-03-22] MEDS ORDERED: TORS10TA3 PO (13:42)
[2023-03-22] MEDS ORDERED: ASPI-161 PO (13:48)
[2023-03-22] MEDS ORDERED: PRAD150C6 PO (13:48)
[2023-03-22] MEDS ORDERED: DICL1GEL3 TOP (13:48)
[2023-03-22] MEDS ORDERED: HOME MED LIST COMPLETE! XX SCH (13:55)
[2023-03-22 14:15] LABS: CK-MB VALUE MASS 2.2 NG/ML (<3.6)
[2023-03-22 14:18] LABS: CPK CREATINE PHOSPHOKINASE 72 U/L (46-171); MB/CK RELATIVE INDEX 3.05 (< OR =4)
[2023-03-22 16:30] LABS: PROCALCITONIN 0.05 ng/ml
[2023-03-22] MEDS: FUROSEMIDE 40MG/4ML VIAL IV SCH ×2 (17:01→23:27)
[2023-03-22 17:20] VITALS: BP 182/86; TEMP 97.4; O2SAT 97
[2023-03-22] MEDS: SINEMET 25-100 MG TAB PO SCH (17:43)
[2023-03-22 18:15] VITALS: BP 120/60
[2023-03-22 19:53] VITALS: BP 148/70; TEMP 97.2; O2SAT 98
[2023-03-22] MEDS: DABIGATRAN ETEXILATE 75 MG CAP (PRADAXA) PO SCH (20:47)
[2023-03-22] MEDS: MEMANTINE 5MG TABLET (NAMENDA) PO SCH (20:47)
[2023-03-22] MEDS: SIMVASTATIN 40 MG TAB PO SCH (20:47)
[2023-03-22] MEDS: cefTRIAXone SOD 1 GM in D5W MINI-BAG PLUS 50 ML IV SCH (22:12)
[2023-03-22 23:18] VITALS: BP 156/74; TEMP 97.6; O2SAT 99
[2023-03-23 03:44] VITALS: BP 141/74; TEMP 98.3; O2SAT 95
[2023-03-23 06:17] LABS: BASO % 0.4 % (0.0-1.0); EOS # 0.6 10^3/uL (0.0-0.5); EOS % 6.8 % (0.0-3.0); HEMATOCRIT 44.4 % (42.0-52.0); LYMPH # 1.1 10^3/uL (1.5-5.0); LYMPH % 13.1 % (24.0-44.0); MEAN CORPUSCULAR HEMOGLOBIN 29.3 pg (27.0-33.0); MEAN CORPUSCULAR HGB CONC 31.5 g/dl (32.0-36.5); MEAN CORPUSCULAR VOLUME 92.9 fl (80.0-96.0); MONO # 1.1 10^3/uL (0.0-0.8); MONO % 13.3 % (2.0-8.0); NEUTROPHILS # 5.5 10^3/uL (1.5-8.5); NEUTROPHILS % 66.2 % (36.0-66.0); PLATELET COUNT, AUTOMATED 267 10^3/uL (150-450); RED BLOOD COUNT 4.78 10^6/uL (4.30-6.10); WHITE BLOOD COUNT 8.3 10^3/uL (4.0-10.0)
[2023-03-23 06:59] LABS: ALBUMIN 3.5 G/DL (3.2-5.2); ALKALINE PHOSPHATASE 78 U/L (46-116); ALT/SGPT 16 U/L (7.0-40); AST/SGOT 14 U/L (<34); BILIRUBIN,TOTAL 0.4 MG/DL (0.3-1.2); BLOOD UREA NITROGEN 20 MG/DL (9-23); CARBON DIOXIDE LEVEL 31 MMOL/L (20-31); CHLORIDE LEVEL 104 MMOL/L (98-107); CREATININE FOR GFR 1.21 MG/DL (0.70-1.30); GLOMERULAR FILTRATION RATE > 60.0 (>42); GLUCOSE, FASTING 95 MG/DL (74-106); MAGNESIUM LEVEL 1.8 MG/DL (1.8-2.4); POTASSIUM SERUM 3.5 MMOL/L (3.5-5.1); SODIUM LEVEL 144 MMOL/L (136-145); TOTAL PROTEIN 6.6 G/DL (5.7-8.2)
[2023-03-23 08:24] VITALS: BP 136/67; TEMP 97.9; O2SAT 94
[2023-03-23] MEDS: MEMANTINE 5MG TABLET (NAMENDA) PO SCH ×2 (08:40→20:15)
[2023-03-23] MEDS: SINEMET 25-100 MG TAB PO SCH ×3 (08:40→17:14)
[2023-03-23] MEDS: VENLAFAXINE **XR** 37.5 MG CAPSULE PO SCH (08:40)
[2023-03-23] MEDS: ASPIRIN 81MG ENTERIC TABLET PO SCH (08:40)
[2023-03-23] MEDS: FUROSEMIDE 40MG/4ML VIAL IV SCH ×2 (08:42→20:17)
[2023-03-23] MEDS: DONEPEZIL 5 MG TAB PO SCH (08:42)
[2023-03-23] MEDS: DABIGATRAN ETEXILATE 75 MG CAP (PRADAXA) PO SCH ×2 (08:42→20:15)
[2023-03-23 14:05] VITALS: BP 136/94
[2023-03-23 14:08] VITALS: BP 142/99
[2023-03-23 15:02] LABS: TOTAL PROTEIN,RANDOM URINE 60.4 MG/DL (0.0-14.0)
[2023-03-23 15:07] LABS: CREATININE,RANDOM URINE 141.6 MG/DL
[2023-03-23 16:05] VITALS: BP 127/68; TEMP 97.7; O2SAT 92
[2023-03-23 20:03] VITALS: BP 140/77; TEMP 97.4; O2SAT 95
[2023-03-23] MEDS: SIMVASTATIN 40 MG TAB PO SCH (20:16)
[2023-03-23] MEDS: cefTRIAXone SOD 1 GM in D5W MINI-BAG PLUS 50 ML IV SCH (22:09)
[2023-03-24 03:46] VITALS: BP 135/80; TEMP 97.8; O2SAT 93
[2023-03-24] MEDS ORDERED: LevoFLOXacin 250 MG TABLET PO SCH (06:00)
[2023-03-24 07:29] LABS: BASO # 0.1 10^3/uL (0.0-0.2); BASO % 0.5 % (0.0-1.0); EOS # 1.6 10^3/uL (0.0-0.5); EOS % 16.5 % (0.0-3.0); HEMATOCRIT 45.5 % (42.0-52.0); HEMOGLOBIN 14.4 g/dl (13.5-17.5); LYMPH # 1.7 10^3/uL (1.5-5.0); MEAN CORPUSCULAR HEMOGLOBIN 29.3 pg (27.0-33.0); MEAN CORPUSCULAR HGB CONC 31.6 g/dl (32.0-36.5); MEAN CORPUSCULAR VOLUME 92.5 fl (80.0-96.0); MONO # 1.4 10^3/uL (0.0-0.8); MONO % 14.4 % (2.0-8.0); NEUTROPHILS # 5.1 10^3/uL (1.5-8.5); NEUTROPHILS % 51.1 % (36.0-66.0); PLATELET COUNT, AUTOMATED 275 10^3/uL (150-450); RED BLOOD COUNT 4.92 10^6/uL (4.30-6.10); WHITE BLOOD COUNT 9.9 10^3/uL (4.0-10.0)
[2023-03-24 07:45] LABS: ALBUMIN 3.2 G/DL (3.2-5.2); ALKALINE PHOSPHATASE 75 U/L (46-116); ALT/SGPT < 9 U/L (7.0-40); AST/SGOT 16 U/L (<34); BILIRUBIN,TOTAL 0.4 MG/DL (0.3-1.2); BLOOD UREA NITROGEN 21 MG/DL (9-23); CALCIUM LEVEL 8.8 MG/DL (8.3-10.6); CARBON DIOXIDE LEVEL 29 MMOL/L (20-31); CHLORIDE LEVEL 105 MMOL/L (98-107); CREATININE FOR GFR 1.18 MG/DL (0.70-1.30); GLOMERULAR FILTRATION RATE > 60.0 (>42); GLUCOSE, FASTING 107 MG/DL (74-106); MAGNESIUM LEVEL 1.7 MG/DL (1.8-2.4); POTASSIUM SERUM 3.4 MMOL/L (3.5-5.1); SODIUM LEVEL 144 MMOL/L (136-145); TOTAL PROTEIN 6.1 G/DL (5.7-8.2)
[2023-03-24 08:00] VITALS: BP 137/70; TEMP 97.3; O2SAT 93
[2023-03-24] MEDS: ASPIRIN 81MG ENTERIC TABLET PO SCH (08:23)
[2023-03-24] MEDS: DABIGATRAN ETEXILATE 75 MG CAP (PRADAXA) PO SCH ×2 (08:24→20:10)
[2023-03-24] MEDS: DONEPEZIL 5 MG TAB PO SCH (08:24)
[2023-03-24] MEDS: VENLAFAXINE **XR** 37.5 MG CAPSULE PO SCH (08:24)
[2023-03-24] MEDS: SINEMET 25-100 MG TAB PO SCH ×3 (08:25→17:55)
[2023-03-24] MEDS: FUROSEMIDE 40MG/4ML VIAL IV SCH (08:25)
[2023-03-24] MEDS: MEMANTINE 5MG TABLET (NAMENDA) PO SCH ×2 (08:25→20:10)
[2023-03-24] MEDS: MAG SULF 1GM/100ML (MAG RUN) 1 GM in IV 1 EA IV SCH ×2 (08:26→10:02)
[2023-03-24] MEDS ORDERED: POTASSIUM CHLORIDE 10MEQ SR TABLET PO ONE (09:00)
[2023-03-24 12:39] VITALS: BP 148/74; TEMP 97.1; O2SAT 96
[2023-03-24 15:28] VITALS: BP 138/83; TEMP 97.2; O2SAT 95
[2023-03-24] MEDS ORDERED: LevoFLOXacin 250 MG TABLET PO ONE (18:00)
[2023-03-24] MEDS ORDERED: LevoFLOXacin 500 MG TABLET PO SCH (18:00)
[2023-03-24 19:28] VITALS: BP 143/98; TEMP 98.6; O2SAT 94
[2023-03-24] MEDS: MAGNESIUM OXIDE 400MG TAB (MAG-OX) PO SCH (20:09)
[2023-03-24] MEDS: SIMVASTATIN 40 MG TAB PO SCH (20:09)
[2023-03-25 04:04] VITALS: TEMP 97.9
[2023-03-25 05:39] LABS: ALBUMIN 3.1 G/DL (3.2-5.2); ALKALINE PHOSPHATASE 72 U/L (46-116); ALT/SGPT 12 U/L (7.0-40); AST/SGOT 13 U/L (<34); BILIRUBIN,TOTAL 0.4 MG/DL (0.3-1.2); BLOOD UREA NITROGEN 24 MG/DL (9-23); CARBON DIOXIDE LEVEL 29 MMOL/L (20-31); CHLORIDE LEVEL 104 MMOL/L (98-107); CREATININE FOR GFR 1.23 MG/DL (0.70-1.30); GLOMERULAR FILTRATION RATE > 60.0 (>42); GLUCOSE, FASTING 100 MG/DL (74-106); POTASSIUM SERUM 3.8 MMOL/L (3.5-5.1); SODIUM LEVEL 142 MMOL/L (136-145)
[2023-03-25 07:42] VITALS: BP 158/70; TEMP 97.8; O2SAT 95
[2023-03-25] MEDS: DONEPEZIL 5 MG TAB PO SCH (09:12)
[2023-03-25] MEDS: POTASSIUM CHLORIDE 10MEQ SR TABLET PO SCH (09:13)
[2023-03-25] MEDS: MAGNESIUM OXIDE 400MG TAB (MAG-OX) PO SCH ×2 (09:13→20:24)
[2023-03-25] MEDS: TORSEMIDE 20 MG TAB PO SCH (09:13)
[2023-03-25] MEDS: ASPIRIN 81MG ENTERIC TABLET PO SCH (09:13)
[2023-03-25] MEDS: DABIGATRAN ETEXILATE 75 MG CAP (PRADAXA) PO SCH ×2 (09:13→20:25)
[2023-03-25] MEDS: MEMANTINE 5MG TABLET (NAMENDA) PO SCH ×2 (09:14→20:24)
[2023-03-25] MEDS: VENLAFAXINE **XR** 37.5 MG CAPSULE PO SCH (09:14)
[2023-03-25] MEDS: SINEMET 25-100 MG TAB PO SCH ×3 (09:14→17:08)
[2023-03-25] MEDS ORDERED: FOSFOMYCIN TROMETHAMINE 3 GM POWDER PACKET (MONUROL) PO ONE (13:00)
[2023-03-25] MEDS: LevoFLOXacin 500 MG TABLET PO SCH (17:07)
[2023-03-25 20:00] VITALS: BP 137/68; TEMP 97.8; O2SAT 95
[2023-03-25] MEDS: SIMVASTATIN 40 MG TAB PO SCH (20:25)
[2023-03-26] MEDS: ASPIRIN 81MG ENTERIC TABLET PO SCH (08:12)
[2023-03-26] MEDS: MEMANTINE 5MG TABLET (NAMENDA) PO SCH ×2 (08:12→21:40)
[2023-03-26] MEDS: VENLAFAXINE **XR** 37.5 MG CAPSULE PO SCH (08:13)
[2023-03-26] MEDS: SINEMET 25-100 MG TAB PO SCH ×3 (08:13→17:11)
[2023-03-26] MEDS: TORSEMIDE 20 MG TAB PO SCH (08:13)
[2023-03-26] MEDS: DABIGATRAN ETEXILATE 75 MG CAP (PRADAXA) PO SCH ×2 (08:13→21:39)
[2023-03-26] MEDS: DONEPEZIL 5 MG TAB PO SCH (08:13)
[2023-03-26] MEDS: MAGNESIUM OXIDE 400MG TAB (MAG-OX) PO SCH ×2 (08:14→21:40)
[2023-03-26] MEDS: POTASSIUM CHLORIDE 10MEQ SR TABLET PO SCH (08:14)
[2023-03-26] MEDS ORDERED: IBUPROFEN 400MG TAB PO ONE (17:00)
[2023-03-26] MEDS: LevoFLOXacin 500 MG TABLET PO SCH (17:11)
[2023-03-26 20:23] VITALS: BP 125/71; TEMP 97.7; O2SAT 93
[2023-03-26] MEDS: SIMVASTATIN 40 MG TAB PO SCH (21:39)
[2023-03-27 01:04] VITALS: BP 131/70; TEMP 98.2; O2SAT 93
[2023-03-27 05:44] VITALS: BP 136/71; TEMP 98.1; O2SAT 92
[2023-03-27] MEDS: TORSEMIDE 20 MG TAB PO SCH (09:19)
[2023-03-27] MEDS: ASPIRIN 81MG ENTERIC TABLET PO SCH (09:19)
[2023-03-27] MEDS: POTASSIUM CHLORIDE 10MEQ SR TABLET PO SCH (09:19)
[2023-03-27] MEDS: DABIGATRAN ETEXILATE 75 MG CAP (PRADAXA) PO SCH ×2 (09:20→20:58)
[2023-03-27] MEDS: DONEPEZIL 5 MG TAB PO SCH (09:20)
[2023-03-27] MEDS: MAGNESIUM OXIDE 400MG TAB (MAG-OX) PO SCH ×2 (09:20→20:58)
[2023-03-27] MEDS: SINEMET 25-100 MG TAB PO SCH ×3 (09:20→17:33)
[2023-03-27] MEDS: MEMANTINE 5MG TABLET (NAMENDA) PO SCH ×2 (09:20→20:58)
[2023-03-27] MEDS: VENLAFAXINE **XR** 37.5 MG CAPSULE PO SCH (09:21)
[2023-03-27] MEDS: LevoFLOXacin 500 MG TABLET PO SCH (17:33)
[2023-03-27] MEDS: SIMVASTATIN 40 MG TAB PO SCH (20:58)
[2023-03-28 06:00] VITALS: BP 145/82; TEMP 98.2; O2SAT 96
[2023-03-28] MEDS: DICLOFENAC EPOLAMINE 1.3% PATCH TOP PRN (08:23)
[2023-03-28] MEDS: DABIGATRAN ETEXILATE 75 MG CAP (PRADAXA) PO SCH ×2 (08:24→21:03)
[2023-03-28] MEDS: DONEPEZIL 5 MG TAB PO SCH (08:24)
[2023-03-28] MEDS: POTASSIUM CHLORIDE 10MEQ SR TABLET PO SCH (08:24)
[2023-03-28] MEDS: SINEMET 25-100 MG TAB PO SCH ×3 (08:24→17:28)
[2023-03-28] MEDS: ASPIRIN 81MG ENTERIC TABLET PO SCH (08:24)
[2023-03-28] MEDS: MEMANTINE 5MG TABLET (NAMENDA) PO SCH ×2 (08:24→21:03)
[2023-03-28] MEDS: VENLAFAXINE **XR** 37.5 MG CAPSULE PO SCH (08:24)
[2023-03-28] MEDS: TORSEMIDE 20 MG TAB PO SCH (08:25)
[2023-03-28] MEDS: MAGNESIUM OXIDE 400MG TAB (MAG-OX) PO SCH ×2 (08:25→21:03)
[2023-03-28] MEDS ORDERED: PILL CUTTER 1 EACH XX ONE (13:18)
[2023-03-28 14:18] VITALS: BP 131/74; TEMP 97; O2SAT 94
[2023-03-28] MEDS: LevoFLOXacin 500 MG TABLET PO SCH (17:28)
[2023-03-28] MEDS: SIMVASTATIN 40 MG TAB PO SCH (21:03)
[2023-03-28 21:17] VITALS: BP 146/75; TEMP 98.1; O2SAT 94
[2023-03-29 06:00] VITALS: BP 148/85; TEMP 98.2; O2SAT 95
[2023-03-29] MEDS: TORSEMIDE 20 MG TAB PO SCH (09:31)
[2023-03-29] MEDS: DABIGATRAN ETEXILATE 75 MG CAP (PRADAXA) PO SCH ×2 (09:31→20:43)
[2023-03-29] MEDS: MEMANTINE 5MG TABLET (NAMENDA) PO SCH ×2 (09:32→20:42)
[2023-03-29] MEDS: ASPIRIN 81MG ENTERIC TABLET PO SCH (09:32)
[2023-03-29] MEDS: DONEPEZIL 5 MG TAB PO SCH (09:32)
[2023-03-29] MEDS: SINEMET 25-100 MG TAB PO SCH ×3 (09:32→17:42)
[2023-03-29] MEDS: MAGNESIUM OXIDE 400MG TAB (MAG-OX) PO SCH ×2 (09:32→20:43)
[2023-03-29] MEDS: VENLAFAXINE **XR** 37.5 MG CAPSULE PO SCH (09:32)
[2023-03-29] MEDS: POTASSIUM CHLORIDE 10MEQ SR TABLET PO SCH (09:32)
[2023-03-29] MEDS: SIMVASTATIN 40 MG TAB PO SCH (20:43)
[2023-03-30 06:00] VITALS: BP 133/74; TEMP 97.9; O2SAT 97
[2023-03-30] MEDS: DONEPEZIL 5 MG TAB PO SCH (09:15)
[2023-03-30] MEDS: TORSEMIDE 20 MG TAB PO SCH (09:15)
[2023-03-30] MEDS: MEMANTINE 5MG TABLET (NAMENDA) PO SCH ×2 (09:15→21:15)
[2023-03-30] MEDS: ASPIRIN 81MG ENTERIC TABLET PO SCH (09:15)
[2023-03-30] MEDS: POTASSIUM CHLORIDE 10MEQ SR TABLET PO SCH (09:16)
[2023-03-30] MEDS: SINEMET 25-100 MG TAB PO SCH ×3 (09:16→17:07)
[2023-03-30] MEDS: MAGNESIUM OXIDE 400MG TAB (MAG-OX) PO SCH ×2 (09:16→21:15)
[2023-03-30] MEDS: DABIGATRAN ETEXILATE 75 MG CAP (PRADAXA) PO SCH ×2 (09:17→21:15)
[2023-03-30] MEDS: VENLAFAXINE **XR** 37.5 MG CAPSULE PO SCH (09:17)
[2023-03-30] MEDS: SIMVASTATIN 40 MG TAB PO SCH (21:15)
[2023-03-31 06:00] VITALS: BP 144/88; TEMP 98.1; O2SAT 97
[2023-03-31] MEDS: MAGNESIUM OXIDE 400MG TAB (MAG-OX) PO SCH ×2 (08:59→21:07)
[2023-03-31] MEDS: ASPIRIN 81MG ENTERIC TABLET PO SCH (08:59)
[2023-03-31] MEDS: DABIGATRAN ETEXILATE 75 MG CAP (PRADAXA) PO SCH ×2 (08:59→21:12)
[2023-03-31] MEDS: TORSEMIDE 20 MG TAB PO SCH (09:00)
[2023-03-31] MEDS: DONEPEZIL 5 MG TAB PO SCH (09:00)
[2023-03-31] MEDS: SINEMET 25-100 MG TAB PO SCH ×3 (09:00→16:49)
[2023-03-31] MEDS: VENLAFAXINE **XR** 37.5 MG CAPSULE PO SCH (09:00)
[2023-03-31] MEDS: MEMANTINE 5MG TABLET (NAMENDA) PO SCH ×2 (09:00→21:07)
[2023-03-31] MEDS: POTASSIUM CHLORIDE 10MEQ SR TABLET PO SCH (09:00)
[2023-03-31] MEDS: DICLOFENAC EPOLAMINE 1.3% PATCH TOP PRN (09:09)
[2023-03-31] MEDS: SIMVASTATIN 40 MG TAB PO SCH (21:08)
[2023-04-01] MEDS ORDERED: ACETAMINOPHEN TAB 650MG DOSE (2X325MG) PO PRN (03:20)
[2023-04-01 04:30] VITALS: BP 154/84; TEMP 98.2; O2SAT 95
[2023-04-01 09:19] VITALS: BP 152/80
[2023-04-01] MEDS: DONEPEZIL 5 MG TAB PO SCH (09:57)
[2023-04-01] MEDS: DABIGATRAN ETEXILATE 75 MG CAP (PRADAXA) PO SCH (09:57)
[2023-04-01] MEDS: ASPIRIN 81MG ENTERIC TABLET PO SCH (09:57)
[2023-04-01] MEDS: MEMANTINE 5MG TABLET (NAMENDA) PO SCH (09:57)
[2023-04-01] MEDS: MAGNESIUM OXIDE 400MG TAB (MAG-OX) PO SCH (09:57)
[2023-04-01] MEDS: POTASSIUM CHLORIDE 10MEQ SR TABLET PO SCH (09:57)
[2023-04-01] MEDS: VENLAFAXINE **XR** 37.5 MG CAPSULE PO SCH (09:57)
[2023-04-01] MEDS: TORSEMIDE 20 MG TAB PO SCH (09:58)
[2023-04-01] MEDS: SINEMET 25-100 MG TAB PO SCH ×2 (09:58→12:51)
[2023-04-01 11:35] VITALS: BP 128/84
[2023-04-01] MEDS ORDERED: TORS10TA3 PO (11:37)
[2023-04-01] MEDS ORDERED: MAGN400T2 PO (11:37)
== END 2023-04-01 13:01 | DRG 698 ==
LOC: EDBD 11:38 → M ED 11:38 → M ED INP 15:39 → M PCU 17:14 → M MSPAV 03-27 01:01
PROVIDERS: ADMIT Internal Medicine; ATTEND Internal Medicine
PROC: B246ZZZ Ultrasonography of Right and Left Heart (ICD-10-PCS; principal; 2023-03-22)
DX: T83.511A Infection and inflammatory reaction due to indwelling urethral catheter, initial encounter (principal); I50.33 Acute on chronic diastolic (congestive) heart failure; J98.11 Atelectasis; N39.0 Urinary tract infection, site not specified; G31.83 Neurocognitive disorder with Lewy bodies; F02.80 Dementia in other diseases classified elsewhere, unspecified severity, without behavioral disturbance, psychotic disturbance, mood disturbance, and anxiety; G20 Parkinson's disease; I48.91 Unspecified atrial fibrillation; G47.33 Obstructive sleep apnea (adult) (pediatric); E83.42 Hypomagnesemia; F39 Unspecified mood [affective] disorder; E87.6 Hypokalemia; R26.89 Other abnormalities of gait and mobility; M54.9 Dorsalgia, unspecified; G89.29 Other chronic pain; N40.0 Benign prostatic hyperplasia without lower urinary tract symptoms; Z96.0 Presence of urogenital implants; E78.5 Hyperlipidemia, unspecified; Z86.73 Personal history of transient ischemic attack (TIA), and cerebral infarction without residual deficits; Z98.41 Cataract extraction status, right eye; Z98.42 Cataract extraction status, left eye; Z79.82 Long term (current) use of aspirin; Z79.899 Other long term (current) drug therapy; Z20.822 Contact with and (suspected) exposure to COVID-19

== ENCOUNTER → 2023-04-05 | Outpatient (REF) ==
[~2023-04-05] MED LIST changes: +MAGN400T2 PO; -UNRESOLVED CLARIFICATION ENTRY XX SCH
[2023-04-05 08:01] LABS: HEMATOCRIT 43.5 % (42.0-52.0); HEMOGLOBIN 13.7 g/dl (13.5-17.5); MEAN CORPUSCULAR HEMOGLOBIN 28.8 pg (27.0-33.0); MEAN CORPUSCULAR HGB CONC 31.5 g/dl (32.0-36.5); MEAN CORPUSCULAR VOLUME 91.4 fl (80.0-96.0); PLATELET COUNT, AUTOMATED 277 10^3/uL (150-450); RED BLOOD COUNT 4.76 10^6/uL (4.30-6.10); WHITE BLOOD COUNT 7.1 10^3/uL (4.0-10.0)
[2023-04-05 08:33] LABS: BLOOD UREA NITROGEN 23 MG/DL (9-23); CALCIUM LEVEL 9.2 MG/DL (8.3-10.6); CARBON DIOXIDE LEVEL 30 MMOL/L (20-31); CHLORIDE LEVEL 102 MMOL/L (98-107); CREATININE FOR GFR 1.19 MG/DL (0.70-1.30); GLOMERULAR FILTRATION RATE > 60.0 (>42); GLUCOSE, FASTING 83 MG/DL (74-106); MAGNESIUM LEVEL 2.1 MG/DL (1.8-2.4); POTASSIUM SERUM 3.8 MMOL/L (3.5-5.1); SODIUM LEVEL 139 MMOL/L (136-145)
== END ==
PROVIDERS: ATTEND Physician Assistant
DX: I50.9 Heart failure, unspecified (principal)

== ENCOUNTER → 2023-04-12 | Outpatient (REF) ==
[~2023-04-12] MED LIST changes: +DICL100G10 TOP; -DICL1GEL3 TOP
[2023-04-12 08:15] LABS: HEMATOCRIT 43.4 % (42.0-52.0); HEMOGLOBIN 13.3 g/dl (13.5-17.5); MEAN CORPUSCULAR HEMOGLOBIN 28.7 pg (27.0-33.0); MEAN CORPUSCULAR HGB CONC 30.6 g/dl (32.0-36.5); MEAN CORPUSCULAR VOLUME 93.7 fl (80.0-96.0); PLATELET COUNT, AUTOMATED 283 10^3/uL (150-450); RED BLOOD COUNT 4.63 10^6/uL (4.30-6.10)
[2023-04-12 08:53] LABS: BLOOD UREA NITROGEN 19 MG/DL (9-23); CALCIUM LEVEL 9.1 MG/DL (8.3-10.6); CARBON DIOXIDE LEVEL 30 MMOL/L (20-31); CHLORIDE LEVEL 106 MMOL/L (98-107); CREATININE FOR GFR 1.05 MG/DL (0.70-1.30); GLOMERULAR FILTRATION RATE > 60.0 (>42); GLUCOSE, FASTING 82 MG/DL (74-106); MAGNESIUM LEVEL 2.2 MG/DL (1.8-2.4); SODIUM LEVEL 141 MMOL/L (136-145)
== END ==
PROVIDERS: ATTEND Physician Assistant
DX: E87.6 Hypokalemia (principal)

== ENCOUNTER → 2023-04-13 | Outpatient (REF) | payer MEDICARE, OTHER ==
[2023-04-13 14:11] LABS: APPEARANCE, URINE MANUAL HAZY (CLEAR); COLOR, URINE MANUAL AMBER (YELLOW)
[2023-04-13 14:12] LABS: BILIRUBIN, URINE MANUAL NEGATIVE (NEGATIVE); GLUCOSE, URINE (UA) MANUAL NEGATIVE (NEGATIVE); KETONE, URINE MANUAL NEGATIVE (NEGATIVE); LEUKOCYTE ESTERASE, URINE MAN OBSCURED (NEGATIVE); NITRITE, URINE MANUAL POSITIVE (NEGATIVE); PROTEIN, URINE MANUAL 2+ mg/dL (NEGATIVE); UROBILINOGEN, URINE MANUAL NORMAL (NORMAL)
[2023-04-13 14:13] LABS: BLOOD URINE MANUAL OBSCURED (NEGATIVE)
== END ==
LOC: M SMT 13:09
PROVIDERS: ATTEND Urology
DX: R33.9 Retention of urine, unspecified (principal)

== ENCOUNTER → 2023-04-19 | Outpatient (REF) ==
[2023-04-19 15:46] LABS: HEMOGLOBIN 14.7 g/dl (13.5-17.5); MEAN CORPUSCULAR HEMOGLOBIN 29.6 pg (27.0-33.0); MEAN CORPUSCULAR HGB CONC 30.6 g/dl (32.0-36.5); MEAN CORPUSCULAR VOLUME 96.8 fl (80.0-96.0); PLATELET COUNT, AUTOMATED 275 10^3/uL (150-450); RED BLOOD COUNT 4.96 10^6/uL (4.30-6.10); WHITE BLOOD COUNT 8.1 10^3/uL (4.0-10.0)
[2023-04-19 17:10] LABS: BLOOD UREA NITROGEN 17 MG/DL (9-23); CARBON DIOXIDE LEVEL 28 MMOL/L (20-31); CHLORIDE LEVEL 100 MMOL/L (98-107); CREATININE FOR GFR 1.07 MG/DL (0.70-1.30); GLOMERULAR FILTRATION RATE > 60.0 (>42); GLUCOSE, FASTING 77 MG/DL (74-106); POTASSIUM SERUM 4.4 MMOL/L (3.5-5.1); SODIUM LEVEL 141 MMOL/L (136-145)
== END ==
PROVIDERS: ATTEND Physician Assistant
DX: I50.9 Heart failure, unspecified (principal)

== ENCOUNTER → 2023-04-19 | Outpatient (REF) | payer MEDICARE, OTHER | PROVIDERS: ATTEND Internal Medicine | DX: R05.9 Cough, unspecified (principal) ==

== ENCOUNTER → 2023-04-21 | Outpatient (REF) ==
[2023-04-21 09:19] LABS: HEMATOCRIT 42.4 % (42.0-52.0); HEMOGLOBIN 13.2 g/dl (13.5-17.5); MEAN CORPUSCULAR HEMOGLOBIN 28.6 pg (27.0-33.0); MEAN CORPUSCULAR HGB CONC 31.1 g/dl (32.0-36.5); PLATELET COUNT, AUTOMATED 245 10^3/uL (150-450); RED BLOOD COUNT 4.61 10^6/uL (4.30-6.10); WHITE BLOOD COUNT 6.1 10^3/uL (4.0-10.0)
[2023-04-21 09:39] LABS: BLOOD UREA NITROGEN 14 MG/DL (9-23); CALCIUM LEVEL 8.8 MG/DL (8.3-10.6); CARBON DIOXIDE LEVEL 32 MMOL/L (20-31); CHLORIDE LEVEL 103 MMOL/L (98-107); CREATININE FOR GFR 1.11 MG/DL (0.70-1.30); GLOMERULAR FILTRATION RATE > 60.0 (>42); GLUCOSE, FASTING 78 MG/DL (74-106); POTASSIUM SERUM 3.5 MMOL/L (3.5-5.1); SODIUM LEVEL 142 MMOL/L (136-145)
== END ==
PROVIDERS: ATTEND Physician Assistant
DX: I50.9 Heart failure, unspecified (principal)

== ENCOUNTER → 2023-04-27 | Outpatient (CLI) | payer MEDICARE, OTHER ==
[~2023-04-27] MED LIST changes: +E-Z-PAQUE 96% w/w SUSP 176GM BTL As Ordered ONE; +VARIBAR NECTAR 40% w/v 240ML SUSP BTL As Ordered ONE; +VARIBAR PUDDING 40% w/v 230ML TUBE As Ordered ONE
== END ==
LOC: M RAD 10:50
PROVIDERS: ATTEND Internal Medicine
DX: R13.10 Dysphagia, unspecified (principal)

== ENCOUNTER 2023-05-02 11:01 | Observation (INO) | payer MEDICARE, OTHER ==
[~2023-05-02] VITALS: Ht 162.6 cm; Wt 89.0 kg
[~2023-05-02 11:01] MED LIST changes: -E-Z-PAQUE 96% w/w SUSP 176GM BTL As Ordered ONE; -VARIBAR NECTAR 40% w/v 240ML SUSP BTL As Ordered ONE; -VARIBAR PUDDING 40% w/v 230ML TUBE As Ordered ONE
[2023-05-02 12:44] LABS: BASO % 0.5 % (0.0-1.0); EOS # 0.9 10^3/uL (0.0-0.5); EOS % 12.9 % (0.0-3.0); HEMATOCRIT 44.7 % (42.0-52.0); HEMOGLOBIN 14.1 g/dl (13.5-17.5); LYMPH # 1.3 10^3/uL (1.5-5.0); LYMPH % 19.7 % (24.0-44.0); MEAN CORPUSCULAR HEMOGLOBIN 29.1 pg (27.0-33.0); MEAN CORPUSCULAR HGB CONC 31.5 g/dl (32.0-36.5); MEAN CORPUSCULAR VOLUME 92.2 fl (80.0-96.0); MONO # 0.8 10^3/uL (0.0-0.8); MONO % 12.6 % (2.0-8.0); NEUTROPHILS # 3.6 10^3/uL (1.5-8.5); PLATELET COUNT, AUTOMATED 264 10^3/uL (150-450); RED BLOOD COUNT 4.85 10^6/uL (4.30-6.10); WHITE BLOOD COUNT 6.7 10^3/uL (4.0-10.0)
[2023-05-02 13:17] LABS: ALBUMIN 3.5 G/DL (3.2-5.2); ALKALINE PHOSPHATASE 90 U/L (46-116); ALT/SGPT < 9 U/L (7.0-40); AST/SGOT 39 U/L (<34); BILIRUBIN,DIRECT < 0.1 MG/DL (<0.4); BILIRUBIN,TOTAL 0.4 MG/DL (0.3-1.2); BLOOD UREA NITROGEN 19 MG/DL (9-23); CALCIUM LEVEL 8.9 MG/DL (8.3-10.6); CARBON DIOXIDE LEVEL 29 MMOL/L (20-31); CHLORIDE LEVEL 102 MMOL/L (98-107); CREATININE FOR GFR 0.98 MG/DL (0.70-1.30); GLOMERULAR FILTRATION RATE > 60.0 (>42); GLUCOSE, FASTING 76 MG/DL (74-106); POTASSIUM SERUM 4.2 MMOL/L (3.5-5.1); SODIUM LEVEL 140 MMOL/L (136-145); TOTAL PROTEIN 6.7 G/DL (5.7-8.2)
[2023-05-02] MEDS ORDERED: SINEMET 25-100 MG TAB PO STA (14:09)
[2023-05-02 14:34] LABS: PROCALCITONIN 0.06 ng/ml
[2023-05-02] MEDS ORDERED: MED REC IN PROGRESS XX SCH (15:05)
[2023-05-02] MEDS ORDERED: BUME2TAB3 PO (15:35)
[2023-05-02] MEDS ORDERED: MEMA10TA19 PO (15:35)
[2023-05-02] MEDS ORDERED: MIDO2.5T PO (15:35)
[2023-05-02] MEDS ORDERED: NITR50CA34 PO (15:35)
[2023-05-02] MEDS ORDERED: HOME MED LIST COMPLETE! XX SCH (15:45)
[2023-05-02] MEDS ORDERED: CARB25TA9 PO (18:30)
[2023-05-02] MEDS ORDERED: CARB-113 PO (18:30)
[2023-05-02] MEDS: SINEMET 25-100 MG TAB PO SCH (19:25)
[2023-05-02 20:45] VITALS: BP 158/72; TEMP 98.1; O2SAT 96
[2023-05-02] MEDS: MEMANTINE 5MG TABLET (NAMENDA) PO SCH (22:32)
[2023-05-02] MEDS: ACETAMINOPHEN 500 MG TAB PO SCH (22:32)
[2023-05-02] MEDS: SIMVASTATIN 40 MG TAB PO SCH (22:33)
[2023-05-02] MEDS: DABIGATRAN ETEXILATE 75 MG CAP (PRADAXA) PO SCH (22:33)
[2023-05-02] MEDS: MAGNESIUM OXIDE 400MG TAB (MAG-OX) PO SCH (22:33)
[2023-05-03] MEDS ORDERED: BUMETANIDE 1 MG TAB PO ONE
[2023-05-03 00:22] VITALS: O2SAT 90
[2023-05-03 00:23] VITALS: O2SAT 94
[2023-05-03 00:25] VITALS: O2SAT 95
[2023-05-03 04:40] VITALS: BP 158/80; TEMP 97; O2SAT 98
[2023-05-03 06:04] LABS: HEMATOCRIT 40.7 % (42.0-52.0); HEMOGLOBIN 12.9 g/dl (13.5-17.5); MEAN CORPUSCULAR HEMOGLOBIN 28.9 pg (27.0-33.0); MEAN CORPUSCULAR HGB CONC 31.7 g/dl (32.0-36.5); MEAN CORPUSCULAR VOLUME 91.1 fl (80.0-96.0); PLATELET COUNT, AUTOMATED 247 10^3/uL (150-450); RED BLOOD COUNT 4.47 10^6/uL (4.30-6.10); WHITE BLOOD COUNT 6.4 10^3/uL (4.0-10.0)
[2023-05-03 06:35] LABS: BLOOD UREA NITROGEN 17 MG/DL (9-23); CALCIUM LEVEL 8.5 MG/DL (8.3-10.6); CARBON DIOXIDE LEVEL 30 MMOL/L (20-31); CHLORIDE LEVEL 103 MMOL/L (98-107); CREATININE FOR GFR 1.03 MG/DL (0.70-1.30); GLOMERULAR FILTRATION RATE > 60.0 (>42); GLUCOSE, FASTING 85 MG/DL (74-106); POTASSIUM SERUM 3.7 MMOL/L (3.5-5.1); SODIUM LEVEL 143 MMOL/L (136-145)
[2023-05-03] MEDS: BUMETANIDE 1 MG TAB PO SCH ×2 (08:52→18:03)
[2023-05-03] MEDS: ASCORBIC ACID 500 MG TAB PO SCH (08:52)
[2023-05-03] MEDS: NITROFURANTOIN (MACROBID) 100 MG CAP PO SCH (08:52)
[2023-05-03] MEDS: MAGNESIUM OXIDE 400MG TAB (MAG-OX) PO SCH ×2 (08:53→20:47)
[2023-05-03] MEDS: ACETAMINOPHEN 500 MG TAB PO SCH ×2 (08:53→20:47)
[2023-05-03] MEDS: DONEPEZIL 5 MG TAB PO SCH (08:53)
[2023-05-03] MEDS: MULTIVITAMINS/MINERALS THERAP 1 TAB PO SCH (08:53)
[2023-05-03] MEDS: DABIGATRAN ETEXILATE 75 MG CAP (PRADAXA) PO SCH ×2 (08:54→20:46)
[2023-05-03] MEDS: MEMANTINE 5MG TABLET (NAMENDA) PO SCH ×2 (08:54→20:47)
[2023-05-03] MEDS: VENLAFAXINE **XR** 37.5 MG CAPSULE PO SCH (08:54)
[2023-05-03] MEDS: POTASSIUM CHLORIDE 10MEQ SR TABLET PO SCH (08:54)
[2023-05-03] MEDS: ASPIRIN 81MG ENTERIC TABLET PO SCH (08:54)
[2023-05-03] MEDS: SINEMET 25-100 MG TAB PO SCH ×3 (08:58→18:02)
[2023-05-03] MEDS ORDERED: MIDODRINE 2.5 MG TAB PO SCH (09:00)
[2023-05-03 14:00] VITALS: BP 140/75; TEMP 98; O2SAT 94
[2023-05-03 19:56] VITALS: BP 155/82; TEMP 97.9; O2SAT 94
[2023-05-03] MEDS: SIMVASTATIN 40 MG TAB PO SCH (20:46)
[2023-05-03] MEDS: MICONAZOLE 2 % POWDER (DESENEX) TOP SCH (23:51)
[2023-05-04 05:07] VITALS: BP 151/89; TEMP 97.4; O2SAT 96
[2023-05-04] MEDS ORDERED: LevoFLOXacin 750 MG TABLET PO SCH (06:00)
[2023-05-04 08:44] LABS: BLOOD UREA NITROGEN 19 MG/DL (9-23); CALCIUM LEVEL 8.7 MG/DL (8.3-10.6); CARBON DIOXIDE LEVEL 31 MMOL/L (20-31); CHLORIDE LEVEL 107 MMOL/L (98-107); CREATININE FOR GFR 1.04 MG/DL (0.70-1.30); GLOMERULAR FILTRATION RATE > 60.0 (>42); GLUCOSE, FASTING 93 MG/DL (74-106); POTASSIUM SERUM 3.8 MMOL/L (3.5-5.1); SODIUM LEVEL 146 MMOL/L (136-145)
[2023-05-04] MEDS ORDERED: MICONAZOLE 2 % POWDER (DESENEX) TOP SCH (09:00)
[2023-05-04] MEDS: MEMANTINE 5MG TABLET (NAMENDA) PO SCH (09:01)
[2023-05-04] MEDS: POTASSIUM CHLORIDE 10MEQ SR TABLET PO SCH (09:01)
[2023-05-04] MEDS: MULTIVITAMINS/MINERALS THERAP 1 TAB PO SCH (09:01)
[2023-05-04] MEDS: ASPIRIN 81MG ENTERIC TABLET PO SCH (09:01)
[2023-05-04] MEDS: MAGNESIUM OXIDE 400MG TAB (MAG-OX) PO SCH (09:01)
[2023-05-04] MEDS: DONEPEZIL 5 MG TAB PO SCH (09:01)
[2023-05-04] MEDS: DABIGATRAN ETEXILATE 75 MG CAP (PRADAXA) PO SCH (09:02)
[2023-05-04] MEDS: BUMETANIDE 1 MG TAB PO SCH (09:02)
[2023-05-04] MEDS: ASCORBIC ACID 500 MG TAB PO SCH (09:02)
[2023-05-04] MEDS: NITROFURANTOIN (MACROBID) 100 MG CAP PO SCH (09:03)
[2023-05-04] MEDS: VENLAFAXINE **XR** 37.5 MG CAPSULE PO SCH (09:03)
[2023-05-04] MEDS: ACETAMINOPHEN 500 MG TAB PO SCH (09:04)
[2023-05-04] MEDS: MICONAZOLE 2 % POWDER (DESENEX) TOP SCH (09:04)
[2023-05-04] MEDS ORDERED: D5W 1000ML IV SCH (10:00)
[2023-05-04] MEDS ORDERED: D5W 1,000 ML IV SCH (10:20)
[2023-05-04 10:21] LABS: HEMATOCRIT 41.2 % (42.0-52.0); HEMOGLOBIN 12.8 g/dl (13.5-17.5); MEAN CORPUSCULAR HEMOGLOBIN 28.5 pg (27.0-33.0); MEAN CORPUSCULAR HGB CONC 31.1 g/dl (32.0-36.5); MEAN CORPUSCULAR VOLUME 91.8 fl (80.0-96.0); PLATELET COUNT, AUTOMATED 281 10^3/uL (150-450); RED BLOOD COUNT 4.49 10^6/uL (4.30-6.10); WHITE BLOOD COUNT 6.4 10^3/uL (4.0-10.0)
[2023-05-04] MEDS: SINEMET 25-100 MG TAB PO SCH ×3 (12:33→18:16)
[2023-05-04 16:25] VITALS: BP 106/58; TEMP 97.7; O2SAT 93
[2023-05-04] MEDS ORDERED: MICR2POW TOP (16:56)
[2023-05-04] MEDS ORDERED: BUME1TAB3 PO ×2 (16:57→16:58)
[2023-05-17] MEDS ORDERED: SIMV40TA20 PO (14:54)
[2023-05-17] MEDS ORDERED: MODA100T13 PO (14:54)
[2023-05-17] MEDS ORDERED: VENL37.598 PO (14:54)
[2023-05-17] MEDS ORDERED: NITR50CA34 PO (14:54)
[2023-05-17] MEDS ORDERED: PROC1CRE5 TOP (14:54)
[2023-05-17] MEDS ORDERED: MEMA10TA19 PO (14:54)
[2023-05-17] MEDS ORDERED: POTA-298 PO (14:54)
[2023-05-17] MEDS ORDERED: MAGN400T2 PO (14:54)
[2023-05-17] MEDS ORDERED: DONE5TAB82 PO (14:54)
[2023-05-18] MEDS ORDERED: LISI20TA33 PO (14:35)
== END 2023-05-04 18:37 ==
LOC: EDBD 11:01 → M ED 11:01 → M ED INP 15:09 → M MS4PR 20:35
PROVIDERS: ADMIT Internal Medicine; ATTEND Internal Medicine
DX: R53.1 Weakness (principal); G20 Parkinson's disease; G31.83 Neurocognitive disorder with Lewy bodies; N40.1 Benign prostatic hyperplasia with lower urinary tract symptoms; R33.9 Retention of urine, unspecified; I50.30 Unspecified diastolic (congestive) heart failure; I48.91 Unspecified atrial fibrillation; G47.33 Obstructive sleep apnea (adult) (pediatric); G54.9 Nerve root and plexus disorder, unspecified; E78.5 Hyperlipidemia, unspecified; F39 Unspecified mood [affective] disorder; Z79.01 Long term (current) use of anticoagulants; Z79.82 Long term (current) use of aspirin; Z79.899 Other long term (current) drug therapy; E87.0 Hyperosmolality and hypernatremia; L30.4 Erythema intertrigo

== ENCOUNTER → 2023-06-08 | Outpatient (REF) | payer MEDICARE, OTHER ==
[~2023-06-08] MED LIST changes: +BUME1TAB3 PO; +BUME2TAB3 PO; +CARB-113 PO; +LISI20TA33 PO; +MICR2POW TOP; +MIDO2.5T PO; +NITR50CA34 PO; +PROC1CRE5 TOP
[2023-06-08 17:16] LABS: APPEARANCE, URINE CLOUDY (CLEAR); BACTERIA, URINE AUTO NEGATIVE (NEGATIVE); BILIRUBIN, URINE AUTO NEGATIVE (NEGATIVE); BLOOD, URINE BLOOD 3+ (NEGATIVE); COLOR, URINE YELLOW (YELLOW); GLUCOSE, URINE (UA) AUTO NEGATIVE (NEGATIVE); KETONE, URINE AUTO NEGATIVE (NEGATIVE); LEUKOCYTE ESTERASE, URINE AUTO 3+ (NEGATIVE); NITRITE, URINE AUTO NEGATIVE (NEGATIVE); PROTEIN, URINE AUTO 1+ mg/dL (NEGATIVE); RBC, URINE AUTO TNTC /HPF (0-3); SPECIFIC GRAVITY URINE AUTO 1.015 (1.002-1.035); SQUAMOUS EPITHELIAL CELL UR AU 0 /HPF (0-6); UROBILINOGEN, URINE AUTO 0.2 mg/dL (0.0-2.0); WBC, URINE AUTO 83 /HPF (0-3)
== END ==
LOC: M LAB REF 16:58
PROVIDERS: ATTEND Internal Medicine
DX: N18.9 Chronic kidney disease, unspecified (principal); N39.0 Urinary tract infection, site not specified

== ENCOUNTER → 2023-10-01 | Outpatient (REF) | payer MEDICARE, OTHER ==
[2023-10-01 15:54] LABS: APPEARANCE, URINE MANUAL CLOUDY (CLEAR); COLOR, URINE MANUAL AMBER (YELLOW); GLUCOSE, URINE (UA) MANUAL NEGATIVE (NEGATIVE); PROTEIN, URINE MANUAL 3+ mg/dL (NEGATIVE)
[2023-10-01 15:55] LABS: BILIRUBIN, URINE MANUAL NEGATIVE (NEGATIVE); BLOOD URINE MANUAL POSITIVE (NEGATIVE); KETONE, URINE MANUAL NEGATIVE (NEGATIVE); LEUKOCYTE ESTERASE, URINE MAN POSITIVE (NEGATIVE); NITRITE, URINE MANUAL NEGATIVE (NEGATIVE); UROBILINOGEN, URINE MANUAL NORMAL (NORMAL)
== END ==
LOC: M SMT 15:27
PROVIDERS: ATTEND Urology
DX: R39.9 Unspecified symptoms and signs involving the genitourinary system (principal)

== ENCOUNTER → 2023-10-28 | Outpatient (REF) | payer MEDICARE, OTHER ==
[~2023-10-28] MED LIST changes: -ASPI-161 PO; +ASPI-615 PO
[2023-10-28 13:52] LABS: APPEARANCE, URINE CLOUDY (CLEAR); BACTERIA, URINE AUTO 1+ (NEGATIVE); BILIRUBIN, URINE AUTO NEGATIVE (NEGATIVE); BLOOD, URINE BLOOD 3+ (NEGATIVE); COLOR, URINE RED (YELLOW); GLUCOSE, URINE (UA) AUTO NEGATIVE (NEGATIVE); KETONE, URINE AUTO NEGATIVE (NEGATIVE); LEUKOCYTE ESTERASE, URINE AUTO 3+ (NEGATIVE); MUCUS, URINE SMALL (NEGATIVE); NITRITE, URINE AUTO NEGATIVE (NEGATIVE); PROTEIN, URINE AUTO 2+ mg/dL (NEGATIVE); RBC, URINE AUTO TNTC /HPF (0-3); SPECIFIC GRAVITY URINE AUTO 1.012 (1.002-1.035); SQUAMOUS EPITHELIAL CELL UR AU 1 /HPF (0-6); UROBILINOGEN, URINE AUTO 0.2 mg/dL (0.0-2.0); WBC, URINE AUTO 102 /HPF (0-3)
== END ==
LOC: M SMT 13:08
PROVIDERS: ATTEND Urology
DX: N39.0 Urinary tract infection, site not specified (principal)

== ENCOUNTER → 2023-11-09 | Outpatient (REF) | payer MEDICARE, OTHER ==
[2023-11-09 17:57] LABS: BASO % 0.4 % (0.0-1.0); EOS # 0.4 10^3/uL (0.0-0.5); EOS % 5.3 % (0.0-3.0); HEMATOCRIT 45.3 % (42.0-52.0); HEMOGLOBIN 14.4 g/dl (13.5-17.5); LYMPH # 1.5 10^3/uL (1.5-5.0); LYMPH % 19.1 % (24.0-44.0); MEAN CORPUSCULAR HEMOGLOBIN 29.5 pg (27.0-33.0); MEAN CORPUSCULAR HGB CONC 31.8 g/dl (32.0-36.5); MEAN CORPUSCULAR VOLUME 92.8 fl (80.0-96.0); MONO # 0.7 10^3/uL (0.0-0.8); MONO % 9.6 % (2.0-8.0); NEUTROPHILS # 5.1 10^3/uL (1.5-8.5); NEUTROPHILS % 65.3 % (36.0-66.0); PLATELET COUNT, AUTOMATED 234 10^3/uL (150-450); RED BLOOD COUNT 4.88 10^6/uL (4.30-6.10); WHITE BLOOD COUNT 7.7 10^3/uL (4.0-10.0)
[2023-11-09 18:14] LABS: C REACTIVE PROTEIN QUANTITATIV < 0.40 MG/DL (<1.0)
[2023-11-09 18:16] LABS: ALBUMIN 3.5 G/DL (3.2-5.2); ALKALINE PHOSPHATASE 113 U/L (46-116); ALT/SGPT 26 U/L (7.0-40); AST/SGOT 20 U/L (<34); BILIRUBIN,TOTAL 0.4 MG/DL (0.3-1.2); BLOOD UREA NITROGEN 25 MG/DL (9-23); CALCIUM LEVEL 8.3 MG/DL (8.3-10.6); CARBON DIOXIDE LEVEL 27 MMOL/L (20-31); CHLORIDE LEVEL 105 MMOL/L (98-107); CREATININE FOR GFR 0.95 MG/DL (0.70-1.30); GLOMERULAR FILTRATION RATE > 60.0 (>42); GLUCOSE, FASTING 76 MG/DL (74-106); POTASSIUM SERUM 4.4 MMOL/L (3.5-5.1); SODIUM LEVEL 137 MMOL/L (136-145); TOTAL PROTEIN 6.5 G/DL (5.7-8.2)
== END ==
LOC: M LABDRAWC 16:44
PROVIDERS: ATTEND Internal Medicine
DX: G20.A1 Parkinson's disease without dyskinesia, without mention of fluctuations (principal); I13.0 Hypertensive heart and chronic kidney disease with heart failure and stage 1 through stage 4 chronic kidney disease, or unspecified chronic kidney disease; R50.9 Fever, unspecified; N18.31 Chronic kidney disease, stage 3a; I48.0 Paroxysmal atrial fibrillation; N31.9 Neuromuscular dysfunction of bladder, unspecified

== ENCOUNTER → 2023-11-12 | Outpatient (CLI) | payer MEDICARE, OTHER | LOC: M LAB 10:58 | PROVIDERS: ATTEND Internal Medicine | DX: G20.A1 Parkinson's disease without dyskinesia, without mention of fluctuations (principal); R50.9 Fever, unspecified; I13.0 Hypertensive heart and chronic kidney disease with heart failure and stage 1 through stage 4 chronic kidney disease, or unspecified chronic kidney disease; G31.83 Neurocognitive disorder with Lewy bodies; N18.31 Chronic kidney disease, stage 3a; N31.9 Neuromuscular dysfunction of bladder, unspecified; I48.0 Paroxysmal atrial fibrillation ==

== ENCOUNTER → 2023-11-25 | Outpatient (REF) | payer MEDICARE, OTHER ==
[2023-11-25 18:15] LABS: APPEARANCE, URINE MANUAL CLOUDY (CLEAR)
[2023-11-25 18:16] LABS: COLOR, URINE MANUAL RED (YELLOW)
[2023-11-25 18:17] LABS: BILIRUBIN, URINE MANUAL NEGATIVE (NEGATIVE); BLOOD URINE MANUAL POSITIVE (NEGATIVE); GLUCOSE, URINE (UA) MANUAL NEGATIVE (NEGATIVE); KETONE, URINE MANUAL NEGATIVE (NEGATIVE); LEUKOCYTE ESTERASE, URINE MAN POSITIVE (NEGATIVE); NITRITE, URINE MANUAL NEGATIVE (NEGATIVE); PROTEIN, URINE MANUAL 3+ mg/dL (NEGATIVE); UROBILINOGEN, URINE MANUAL NORMAL (NORMAL)
[2023-11-25 18:50] LABS: RBC, URINE TNTC /hpf (0-3); WBC, URINE 40-50 /hpf (0-3)
[2023-11-25 18:52] LABS: BACTERIA, URINE SMALL AMOUNT; SQUAMOUS EPITHELIAL CELL URINE NONE SEEN /hpf (SMALL AMT); TRANSITIONAL EPI CELLS, URINE SMALL AMOUNT /hpf
[2023-11-25 18:53] LABS: MUCUS, URINE SMALL AMOUNT (NEGATIVE)
[2023-11-25 18:55] LABS: HYALINE CAST, URINE NONE SEEN /lpf (0-1)
== END ==
LOC: M SMT 17:10
PROVIDERS: ATTEND Urology
DX: N39.0 Urinary tract infection, site not specified (principal)

== ENCOUNTER → 2024-01-25 | Outpatient (CLI) | payer MEDICARE, OTHER ==
[~2024-01-25] MED LIST changes: +CRAN500C11 PO; -CVS500CA5 PO; +MEMA10TA PO; -MEMA10TA19 PO
== END ==
LOC: M SOG 08:03
PROVIDERS: ATTEND Physician Assistant
DX: Z53.9 Procedure and treatment not carried out, unspecified reason (principal)

== ENCOUNTER → 2024-02-02 | Outpatient (CLI) | payer MEDICARE, OTHER | LOC: M RAD 11:20 | PROVIDERS: ATTEND Physician Assistant | DX: M25.561 Pain in right knee (principal); M25.562 Pain in left knee ==

== ENCOUNTER → 2024-05-24 | Outpatient (CLI) | payer MEDICARE, OTHER ==
[~2024-05-24] MED LIST changes: +BARIUM SULFATE 700 MG TABLET (E-Z-DISK) As Ordered ONE; +E-Z-PAQUE 96% w/w SUSP 176GM BTL As Ordered ONE; +VARIBAR NECTAR 40% w/v 240ML SUSP BTL As Ordered ONE; +VARIBAR PUDDING 40% w/v 230ML TUBE As Ordered ONE
== END ==
LOC: M RAD 11:06
PROVIDERS: ATTEND Internal Medicine
DX: R13.10 Dysphagia, unspecified (principal)

== ENCOUNTER → 2024-07-11 | Outpatient (REF) | payer MEDICARE, OTHER ==
[~2024-07-11] MED LIST changes: -BARIUM SULFATE 700 MG TABLET (E-Z-DISK) As Ordered ONE; -CRAN500C11 PO; +CVS500CA5 PO; -E-Z-PAQUE 96% w/w SUSP 176GM BTL As Ordered ONE; -MIDO2.5T PO; +MIDO2.5T3 PO; -VARIBAR NECTAR 40% w/v 240ML SUSP BTL As Ordered ONE; -VARIBAR PUDDING 40% w/v 230ML TUBE As Ordered ONE
[2024-07-11 18:26] LABS: APPEARANCE, URINE CLOUDY (CLEAR); BACTERIA, URINE AUTO NEGATIVE (NEGATIVE); BILIRUBIN, URINE AUTO NEGATIVE (NEGATIVE); BLOOD, URINE BLOOD 3+ (NEGATIVE); COLOR, URINE YELLOW (YELLOW); GLUCOSE, URINE (UA) AUTO NEGATIVE (NEGATIVE); KETONE, URINE AUTO NEGATIVE (NEGATIVE); LEUKOCYTE ESTERASE, URINE AUTO 3+ (NEGATIVE); NITRITE, URINE AUTO NEGATIVE (NEGATIVE); PROTEIN, URINE AUTO 1+ mg/dL (NEGATIVE); RBC, URINE AUTO TNTC /HPF (0-3); SPECIFIC GRAVITY URINE AUTO 1.019 (1.002-1.035); SQUAMOUS EPITHELIAL CELL UR AU 1 /HPF (0-6); UROBILINOGEN, URINE AUTO 0.2 mg/dL (0.0-2.0); WBC, URINE AUTO TNTC /HPF (0-3)
== END ==
LOC: M LAB REF 16:50
PROVIDERS: ATTEND Urology
DX: R39.9 Unspecified symptoms and signs involving the genitourinary system (principal)

== ENCOUNTER → 2024-08-23 | Outpatient (REF) | payer MEDICARE, OTHER ==
[2024-08-23 17:45] LABS: APPEARANCE, URINE CLOUDY (CLEAR); BACTERIA, URINE AUTO 1+ (NEGATIVE); BILIRUBIN, URINE AUTO NEGATIVE (NEGATIVE); BLOOD, URINE BLOOD 3+ (NEGATIVE); COLOR, URINE YELLOW (YELLOW); GLUCOSE, URINE (UA) AUTO NEGATIVE (NEGATIVE); KETONE, URINE AUTO NEGATIVE (NEGATIVE); LEUKOCYTE ESTERASE, URINE AUTO 3+ (NEGATIVE); MUCUS, URINE SMALL (NEGATIVE); NITRITE, URINE AUTO NEGATIVE (NEGATIVE); PROTEIN, URINE AUTO 1+ mg/dL (NEGATIVE); RBC, URINE AUTO TNTC /HPF (0-3); SPECIFIC GRAVITY URINE AUTO 1.015 (1.002-1.035); SQUAMOUS EPITHELIAL CELL UR AU 1 /HPF (0-6); UROBILINOGEN, URINE AUTO 0.2 mg/dL (0.0-2.0); WBC, URINE AUTO 145 /HPF (0-3)
== END ==
LOC: M LAB REF 16:43
PROVIDERS: ATTEND Physician Assistant
DX: N39.0 Urinary tract infection, site not specified (principal)

== ENCOUNTER 2024-09-20 21:43 | Emergency (ER) | payer MEDICARE, OTHER ==
[~2024-09-20] VITALS: Ht 165.1 cm; Wt 81.8 kg
[2024-09-20 22:18] LABS: BASO % 0.3 % (0.0-1.0); EOS # 0.3 10^3/uL (0.0-0.5); EOS % 2.3 % (0.0-3.0); HEMATOCRIT 52.6 % (42.0-52.0); HEMOGLOBIN 16.4 g/dl (13.5-17.5); LYMPH % 18.7 % (24.0-44.0); MEAN CORPUSCULAR HEMOGLOBIN 30.6 pg (27.0-33.0); MEAN CORPUSCULAR HGB CONC 31.2 g/dl (32.0-36.5); MEAN CORPUSCULAR VOLUME 98.1 fl (80.0-96.0); MONO # 1.1 10^3/uL (0.0-0.8); MONO % 9.7 % (2.0-8.0); NEUTROPHILS # 7.4 10^3/uL (1.5-8.5); NEUTROPHILS % 68.7 % (36.0-66.0); PLATELET COUNT, AUTOMATED 247 10^3/uL (150-450); RED BLOOD COUNT 5.36 10^6/uL (4.30-6.10); WHITE BLOOD COUNT 10.8 10^3/uL (4.0-10.0)
[2024-09-20] MEDS: GLUCAGON INJ 1MG VIAL IV STA (22:23)
[2024-09-20 22:53] LABS: BLOOD UREA NITROGEN 49 MG/DL (9-23); CALCIUM LEVEL 8.6 MG/DL (8.3-10.6); CARBON DIOXIDE LEVEL 30 MMOL/L (20-31); CHLORIDE LEVEL 113 MMOL/L (98-107); CREATININE FOR GFR 1.04 MG/DL (0.70-1.30); GLOMERULAR FILTRATION RATE > 60.0 (>42); GLUCOSE, FASTING 118 MG/DL (74-106); POTASSIUM SERUM 5.4 MMOL/L (3.5-5.1); SODIUM LEVEL 152 MMOL/L (136-145)
[2024-09-21 00:01] LABS: BLOOD UREA NITROGEN 48 MG/DL (9-23); CALCIUM LEVEL 9.5 MG/DL (8.3-10.6); CARBON DIOXIDE LEVEL 34 MMOL/L (20-31); CHLORIDE LEVEL 109 MMOL/L (98-107); CREATININE FOR GFR 1.12 MG/DL (0.70-1.30); GLOMERULAR FILTRATION RATE > 60.0 (>42); GLUCOSE, FASTING 129 MG/DL (74-106); POTASSIUM SERUM 4.1 MMOL/L (3.5-5.1); SODIUM LEVEL 152 MMOL/L (136-145)
[2024-09-21 01:30] VITALS: BP 117/79; TEMP 97.3; O2SAT 97
== END 2024-09-21 01:46 | disposition home or self-care (01) ==
LOC: EDBD 21:43 → M ED 21:43
DX: R13.10 Dysphagia, unspecified (principal); G20.C Parkinsonism, unspecified; N40.0 Benign prostatic hyperplasia without lower urinary tract symptoms; G47.30 Sleep apnea, unspecified; Z86.73 Personal history of transient ischemic attack (TIA), and cerebral infarction without residual deficits; Z86.79 Personal history of other diseases of the circulatory system; Z87.891 Personal history of nicotine dependence; Z79.82 Long term (current) use of aspirin; Z79.811 Long term (current) use of aromatase inhibitors; Z79.899 Other long term (current) drug therapy
CPT/HCPCS: 71045; 80048; 85025; 93041; 94760; 96374; 99285; J1610

== ENCOUNTER → 2024-11-14 | Outpatient (REF) | payer MEDICARE, OTHER ==
[2024-11-14 12:17] LABS: APPEARANCE, URINE HAZY (CLEAR); BACTERIA, URINE AUTO NEGATIVE (NEGATIVE); BILIRUBIN, URINE AUTO NEGATIVE (NEGATIVE); BLOOD, URINE BLOOD 2+ (NEGATIVE); COLOR, URINE YELLOW (YELLOW); GLUCOSE, URINE (UA) AUTO NEGATIVE (NEGATIVE); KETONE, URINE AUTO NEGATIVE (NEGATIVE); LEUKOCYTE ESTERASE, URINE AUTO 3+ (NEGATIVE); MUCUS, URINE SMALL (NEGATIVE); NITRITE, URINE AUTO NEGATIVE (NEGATIVE); PROTEIN, URINE AUTO 1+ mg/dL (NEGATIVE); RBC, URINE AUTO 64 /HPF (0-3); SPECIFIC GRAVITY URINE AUTO 1.017 (1.002-1.035); SQUAMOUS EPITHELIAL CELL UR AU 0 /HPF (0-6); UROBILINOGEN, URINE AUTO 0.2 mg/dL (0.0-2.0); WBC, URINE AUTO 139 /HPF (0-3)
== END ==
LOC: M LAB REF 11:26
PROVIDERS: ATTEND Nurse Practitioner Family
DX: R39.9 Unspecified symptoms and signs involving the genitourinary system (principal)

== ENCOUNTER → 2024-12-11 | Outpatient (REF) | payer MEDICARE, OTHER ==
[2024-12-11 13:52] LABS: APPEARANCE, URINE HAZY (CLEAR); BACTERIA, URINE AUTO NEGATIVE (NEGATIVE); BILIRUBIN, URINE AUTO NEGATIVE (NEGATIVE); BLOOD, URINE BLOOD 3+ (NEGATIVE); COLOR, URINE YELLOW (YELLOW); GLUCOSE, URINE (UA) AUTO NEGATIVE (NEGATIVE); KETONE, URINE AUTO NEGATIVE (NEGATIVE); LEUKOCYTE ESTERASE, URINE AUTO 3+ (NEGATIVE); MUCUS, URINE SMALL (NEGATIVE); NITRITE, URINE AUTO NEGATIVE (NEGATIVE); PROTEIN, URINE AUTO NEGATIVE (NEGATIVE); RBC, URINE AUTO TNTC /HPF (0-3); SPECIFIC GRAVITY URINE AUTO 1.009 (1.002-1.035); SQUAMOUS EPITHELIAL CELL UR AU 0 /HPF (0-6); UROBILINOGEN, URINE AUTO 0.2 mg/dL (0.0-2.0); WBC, URINE AUTO 31 /HPF (0-3)
== END ==
LOC: M LAB REF 12:58
PROVIDERS: ATTEND Urology
DX: N39.0 Urinary tract infection, site not specified (principal)

== ENCOUNTER 2025-01-16 09:16 | Inpatient (IN) | payer MEDICARE, OTHER ==
[~2025-01-16] VITALS: Ht 160 cm; Wt 92.3 kg
[~2025-01-16 09:16] MED LIST changes: -FLOM0.4C39 PO; +PRED-1142 PO; -PRED1TABL PO; +TAMS-18 PO
[2025-01-16 10:31] LABS: BASO % 0.2 % (0.0-1.0); HEMATOCRIT 47.5 % (42.0-52.0); HEMOGLOBIN 15.4 g/dl (13.5-17.5); LYMPH % 6.7 % (24.0-44.0); MEAN CORPUSCULAR HEMOGLOBIN 30.6 pg (27.0-33.0); MEAN CORPUSCULAR HGB CONC 32.4 g/dl (32.0-36.5); MEAN CORPUSCULAR VOLUME 94.2 fl (80.0-96.0); MONO % 6.9 % (2.0-8.0); NEUTROPHILS # 12.6 10^3/uL (1.5-8.5); NEUTROPHILS % 85.8 % (36.0-66.0); PLATELET COUNT, AUTOMATED 214 10^3/uL (150-450); RED BLOOD COUNT 5.04 10^6/uL (4.30-6.10); WHITE BLOOD COUNT 14.6 10^3/uL (4.0-10.0)
[2025-01-16 10:45] LABS: INR 1.16; PARTIAL THROMBOPLASTIN TIME 53.7 SECONDS (24.8-34.2); PROTHROMBIN TIME 15.2 SECONDS (12.5-14.5)
[2025-01-16 10:54] LABS: ALBUMIN 3.9 G/DL (3.2-5.2); BILIRUBIN,DIRECT 0.2 MG/DL (<0.4); BILIRUBIN,TOTAL 0.7 MG/DL (0.3-1.2); CALCIUM LEVEL 9.3 MG/DL (8.3-10.6); CREATININE FOR GFR 1.13 MG/DL (0.70-1.30); GLOMERULAR FILTRATION RATE 65.7 (>35); POTASSIUM SERUM 4.3 MMOL/L (3.5-5.1); TOTAL PROTEIN 7.3 G/DL (5.7-8.2)
[2025-01-16 10:59] LABS: FREE T4 1.52 NG/DL (0.89-1.76); THYROID STIMULATING HORMONE 1.004 uIU/ML (0.55-4.78)
[2025-01-16 11:06] LABS: MB/CK RELATIVE INDEX 2.38 (< OR =4)
[2025-01-16] MEDS ORDERED: ISOVUE-370 76% 100ML VIAL As Ordered ONE (11:40)
[2025-01-16 11:46] LABS: KETONE, URINE AUTO RFX NEGATIVE (NEGATIVE); MUCUS, URINE RFX SMALL (NEGATIVE); RBC, URINE AUTO RFX 38 /HPF (0-3); SQUAM EPITHELIAL CELL UR AURFX 0 /HPF (0-6)
[2025-01-16 11:48] LABS: LEUKOCYTE ESTERASE UR AUTO RFX 3+ (NEGATIVE); NITRITE, URINE AUTO RFX POSITIVE (NEGATIVE); WBC, URINE AUTO RFX 146 /HPF (0-3)
[2025-01-16 12:09] LABS: CK-MB VALUE MASS 5.6 NG/ML (<3.6)
[2025-01-16 12:12] LABS: MB/CK RELATIVE INDEX 1.7 (< OR =4)
[2025-01-16] MEDS: AMPICILLIN SOD 1 GM in DEXTROSE 5% (D5W) ADV/MINI-BAG 100 ML IV ONE (13:53)
[2025-01-16] MEDS ORDERED: MM S100C PO (14:03)
[2025-01-16] MEDS ORDERED: BUME1TAB3 PO (14:03)
[2025-01-16] MEDS ORDERED: MELA3TAB78 PO (14:03)
[2025-01-16] MEDS ORDERED: METH-1022 PO (14:03)
[2025-01-16] MEDS ORDERED: MAGN400T2 PO (14:03)
[2025-01-16] MEDS ORDERED: ONETAB9 PO (14:03)
[2025-01-16] MEDS ORDERED: HYDR-643 PO (14:03)
[2025-01-16] MEDS ORDERED: BACI1TAB20 PO (14:03)
[2025-01-16] MEDS ORDERED: CALC-358 PO (14:03)
[2025-01-16] MEDS ORDERED: VENL75CA2 PO (14:03)
[2025-01-16] MEDS ORDERED: OYST1TAB PO (14:03)
[2025-01-16] MEDS ORDERED: NITR50CA34 PO (14:03)
[2025-01-16] MEDS ORDERED: DONE5TAB86 PO (14:03)
[2025-01-16] MEDS ORDERED: MED REC IN PROGRESS XX SCH (14:05)
[2025-01-16] MEDS ORDERED: HOME MED LIST COMPLETE! XX SCH (15:30)
[2025-01-16] MEDS ORDERED: ACETAMINOPHEN 500 MG TAB PO PRN (15:40)
[2025-01-16] MEDS: NS (Normal Saline) 0.9% 1,000 ML IV SCH (15:42)
[2025-01-16] MEDS: SINEMET 25-100 MG TAB PO SCH (19:07)
[2025-01-16 19:57] VITALS: BP 140/78; TEMP 97.9; O2SAT 93
[2025-01-16] MEDS ORDERED: PIPERACILLIN/TAZOBACTAM SOD 3.375 GM in DEXTROSE 5% (D5W) ADV/MINI-BAG 50 ML IV SCH (20:00)
[2025-01-16] MEDS: PIPERACILLIN/TAZOBACTAM SOD 4.5 GM in DEXTROSE 5% (D5W) ADV/MINI-BAG 50 ML IV SCH (21:22)
[2025-01-16] MEDS: RAMELTEON 8 MG TAB (ROZEREM) PO SCH (21:22)
[2025-01-16] MEDS: SIMVASTATIN 40 MG TAB PO SCH (21:23)
[2025-01-16] MEDS: MEMANTINE 5MG TABLET (NAMENDA) PO SCH (21:23)
[2025-01-16] MEDS: DABIGATRAN ETEXILATE 75 MG CAP (PRADAXA) PO SCH (21:29)
[2025-01-17] VITALS (8 sets, daily range): BP systolic 126–150; BP diastolic 60–84; TEMP 97.5–100.4; O2SAT 91–97
[2025-01-17] MEDS: FUROSEMIDE 40MG/4ML VIAL IV STA (01:20)
[2025-01-17 07:40] LABS: BASO % 0.3 % (0.0-1.0); EOS # 0.4 10^3/uL (0.0-0.5); EOS % 3.9 % (0.0-3.0); HEMATOCRIT 43.1 % (42.0-52.0); HEMOGLOBIN 13.9 g/dl (13.5-17.5); LYMPH # 1.6 10^3/uL (1.5-5.0); LYMPH % 15.8 % (24.0-44.0); MEAN CORPUSCULAR HEMOGLOBIN 30.6 pg (27.0-33.0); MEAN CORPUSCULAR HGB CONC 32.3 g/dl (32.0-36.5); MEAN CORPUSCULAR VOLUME 94.9 fl (80.0-96.0); MONO # 1.1 10^3/uL (0.0-0.8); MONO % 10.3 % (2.0-8.0); NEUTROPHILS # 7.1 10^3/uL (1.5-8.5); NEUTROPHILS % 69.5 % (36.0-66.0); PLATELET COUNT, AUTOMATED 201 10^3/uL (150-450); RED BLOOD COUNT 4.54 10^6/uL (4.30-6.10); WHITE BLOOD COUNT 10.2 10^3/uL (4.0-10.0)
[2025-01-17 08:21] LABS: CALCIUM LEVEL 8.9 MG/DL (8.3-10.6); CREATININE FOR GFR 1.38 MG/DL (0.70-1.30); GLOMERULAR FILTRATION RATE 51.7 (>35); POTASSIUM SERUM 3.9 MMOL/L (3.5-5.1)
[2025-01-17] MEDS: VENLAFAXINE **XR** 75MG CAPSULE PO SCH (09:45)
[2025-01-17] MEDS: SINEMET 25-100 MG TAB PO SCH (09:45)
[2025-01-17] MEDS: DONEPEZIL 5 MG TAB PO SCH (09:45)
[2025-01-17] MEDS: ENOXAPARIN 40MG/0.4ML SYRINGE (J1650 PER 10MG) SC SCH (09:46)
[2025-01-17] MEDS: METHYLPHENIDATE 5 MG TAB PO SCH (09:47)
[2025-01-17] MEDS ORDERED: PREPARATION H OINTMENT (HEMORRHOID) PR PRN (10:20)
[2025-01-17] MEDS: SENNA SYRUP 5ML UDC PO SCH (13:35)
[2025-01-17] MEDS: MELATONIN 3 MG PO SCH (21:24)
[2025-01-17] MEDS: ACETAMINOPHEN 325 MG TAB PO PRN (23:11)
[2025-01-18] VITALS (10 sets, daily range): BP systolic 127–162; BP diastolic 73–98; TEMP 97.5–99; O2SAT 87–95
[2025-01-18] MEDS ORDERED: GENTAMICIN INTRAVESIC SCH
[2025-01-18] MEDS ORDERED: SODIUM CHLORIDE INTRAVESIC SCH
[2025-01-18] MEDS: IPRATROPIUM 0.5MG/ALBUTEROL 2.5MG INH SOL UD 3ML NEB ONE (04:32)
[2025-01-18 08:10] LABS: BASO % 0.2 % (0.0-1.0); EOS # 0.6 10^3/uL (0.0-0.5); EOS % 6.6 % (0.0-3.0); HEMATOCRIT 40.2 % (42.0-52.0); HEMOGLOBIN 13.1 g/dl (13.5-17.5); LYMPH # 1.5 10^3/uL (1.5-5.0); LYMPH % 16.9 % (24.0-44.0); MEAN CORPUSCULAR HEMOGLOBIN 30.8 pg (27.0-33.0); MEAN CORPUSCULAR HGB CONC 32.6 g/dl (32.0-36.5); MEAN CORPUSCULAR VOLUME 94.6 fl (80.0-96.0); MONO # 0.9 10^3/uL (0.0-0.8); MONO % 10.4 % (2.0-8.0); NEUTROPHILS # 5.7 10^3/uL (1.5-8.5); NEUTROPHILS % 65.7 % (36.0-66.0); PLATELET COUNT, AUTOMATED 178 10^3/uL (150-450); RED BLOOD COUNT 4.25 10^6/uL (4.30-6.10); WHITE BLOOD COUNT 8.7 10^3/uL (4.0-10.0)
[2025-01-18 08:35] LABS: CALCIUM LEVEL 8.4 MG/DL (8.3-10.6); CREATININE FOR GFR 1.1 MG/DL (0.70-1.30); GLOMERULAR FILTRATION RATE 67.9 (>35); MAGNESIUM LEVEL 1.9 MG/DL (1.8-2.4); POTASSIUM SERUM 3.6 MMOL/L (3.5-5.1)
[2025-01-18] MEDS: AUGMENTIN 875 MG TAB PO SCH (13:16)
[2025-01-18] MEDS: GENTAMICIN INTRAVESIC ONE (15:48)
[2025-01-18] MEDS: SODIUM CHLORIDE INTRAVESIC ONE (15:48)
[2025-01-18] MEDS: BUMETANIDE 1 MG TAB PO SCH (17:21)
[2025-01-19] VITALS (7 sets, daily range): BP systolic 136–163; BP diastolic 82–88; TEMP 97.3–98.5; O2SAT 85–95
[2025-01-19 06:02] LABS: HEMATOCRIT 44.4 % (42.0-52.0); MEAN CORPUSCULAR HEMOGLOBIN 30.4 pg (27.0-33.0); MEAN CORPUSCULAR HGB CONC 31.5 g/dl (32.0-36.5); MEAN CORPUSCULAR VOLUME 96.3 fl (80.0-96.0); PLATELET COUNT, AUTOMATED 219 10^3/uL (150-450); RED BLOOD COUNT 4.61 10^6/uL (4.30-6.10); WHITE BLOOD COUNT 8.6 10^3/uL (4.0-10.0)
[2025-01-19 06:21] LABS: CALCIUM LEVEL 9.2 MG/DL (8.3-10.6); CREATININE FOR GFR 0.94 MG/DL (0.70-1.30); POTASSIUM SERUM 3.8 MMOL/L (3.5-5.1)
[2025-01-19] MEDS ORDERED: SENNA SYRUP 5ML UDC PO PRN (10:00)
[2025-01-19] MEDS ORDERED: AMOX875T2 PO (11:22)
== END 2025-01-19 14:35 | DRG 871 ==
LOC: EDBD 09:16 → M ED 09:16 → M ED INP 17:36 → M MSPAV 19:57
PROVIDERS: ADMIT Student in an Organized Health Care Education/Training Program; ATTEND Student in an Organized Health Care Education/Training Program
DX: A41.9 Sepsis, unspecified organism (principal); G93.41 Metabolic encephalopathy; G91.2 (Idiopathic) normal pressure hydrocephalus; N39.0 Urinary tract infection, site not specified; R55 Syncope and collapse; G20.A1 Parkinson's disease without dyskinesia, without mention of fluctuations; M35.3 Polymyalgia rheumatica; E78.5 Hyperlipidemia, unspecified; E78.00 Pure hypercholesterolemia, unspecified; G31.83 Neurocognitive disorder with Lewy bodies; I48.91 Unspecified atrial fibrillation; N40.0 Benign prostatic hyperplasia without lower urinary tract symptoms; Z99.3 Dependence on wheelchair; Z79.899 Other long term (current) drug therapy; Z66 Do not resuscitate

== ENCOUNTER 2025-03-02 11:26 | Inpatient (IN) | payer MEDICARE, OTHER ==
[~2025-03-02] VITALS: Ht 160 cm; Wt 90.5 kg
[~2025-03-02 11:26] MED LIST changes: +AMOX875T2 PO; +BACI1TAB20 PO; +CALC-358 PO; +DONE5TAB86 PO; +GENT40VL IV; +HYDR-643 PO; +MELA3TAB78 PO; +METH-1022 PO; +MM S100C PO; +NORM0.9I21 IVFLUSH; +ONETAB9 PO; +OYST1TAB PO; +VENL75CA2 PO; +[UNRECOGNIZED DRUG - CODE] MC
[2025-03-02 13:44] LABS: KETONE, URINE AUTO RFX TRACE mg/dL (NEGATIVE); MUCUS, URINE RFX SMALL (NEGATIVE); NITRITE, URINE AUTO RFX NEGATIVE (NEGATIVE); RBC, URINE AUTO RFX 3 /HPF (0-3); SQUAM EPITHELIAL CELL UR AURFX 0 /HPF (0-6)
[2025-03-02 13:45] LABS: BASO # 0.0 10^3/uL (0.0-0.2); BASO % 0.1 % (0.0-1.0); EOS # 0.2 10^3/uL (0.0-0.5); EOS % 1.1 % (0.0-3.0); LYMPH # 1.5 10^3/uL (1.5-5.0); LYMPH % 10.8 % (24.0-44.0); MONO # 1.3 10^3/uL (0.0-0.8); MONO % 9.4 % (2.0-8.0); NEUTROPHILS # 10.5 10^3/uL (1.5-8.5); NEUTROPHILS % 78.0 % (36.0-66.0); PLATELET COUNT, AUTOMATED 225 10^3/uL (150-450)
[2025-03-02 14:01] LABS: LEUKOCYTE ESTERASE UR AUTO RFX 1+ (NEGATIVE); WBC, URINE AUTO RFX 12 /HPF (0-3)
[2025-03-02 14:15] LABS: ALT/SGPT 22.0 U/L (7.0-40); AST/SGOT 32.0 U/L (<34); CALCIUM LEVEL 9.5 MG/DL (8.3-10.6); CARBON DIOXIDE LEVEL 28.0 MMOL/L (20-31); CHLORIDE LEVEL 101.0 MMOL/L (98-107); CREATININE FOR GFR 0.82 MG/DL (0.70-1.30); GLOMERULAR FILTRATION RATE 88.8 (>35); POTASSIUM SERUM 4.7 MMOL/L (3.5-5.1); SODIUM LEVEL 143.0 MMOL/L (136-145)
[2025-03-02] MEDS: cefTRIAXone SOD 1 GM in DEXTROSE 5% (D5W) ADV/MINI-BAG 50 ML IV ONE (15:02)
[2025-03-02] MEDS ORDERED: AMPICILLIN SOD 1 GM in DEXTROSE 5% (D5W) ADV/MINI-BAG 100 ML IV SCH (15:35)
[2025-03-02] MEDS ORDERED: cefTAZidime 2 GM in DEXTROSE 5% (D5W) ADV/MINI-BAG 50 ML IV SCH (15:40)
[2025-03-02] MEDS: IPRATROPIUM 0.5 MG/2.5 ML (0.02%) SOLN NEB INH SCH (16:00)
[2025-03-02] MEDS: SINEMET 25-100 MG TAB PO SCH (17:00)
[2025-03-02] MEDS: PIPERACILLIN/TAZOBACTAM SOD 3.375 GM in DEXTROSE 5% (D5W) ADV/MINI-BAG 50 ML IV SCH (17:18)
[2025-03-02] MEDS: MIDODRINE 5 MG TAB PO SCH (17:20)
[2025-03-02] MEDS ORDERED: LR 1,000 ML IV ONE (17:20)
[2025-03-02] MEDS ORDERED: NITR50CA51 PO (18:01)
[2025-03-02] MEDS ORDERED: HOME MED LIST COMPLETE! XX SCH (18:05)
[2025-03-02 19:19] VITALS: BP 179/101; TEMP 99.9; O2SAT 95
[2025-03-02 19:26] VITALS: BP 170/102
[2025-03-02 20:15] VITALS: BP 162/88
[2025-03-02] MEDS: MEMANTINE 5 MG TABLET PO SCH (20:45)
[2025-03-02] MEDS: MAGNESIUM OXIDE 400 MG TAB PO SCH (20:45)
[2025-03-02] MEDS: SIMVASTATIN 40 MG TAB PO SCH (20:46)
[2025-03-02] MEDS ORDERED: BUMETANIDE 1 MG TAB PO SCH (21:00)
[2025-03-02] MEDS: DABIGATRAN ETEXILATE 75 MG CAP PO SCH (22:00)
[2025-03-03] VITALS (8 sets, daily range): BP systolic 129–144; BP diastolic 59–82; TEMP 98.6–101.6; O2SAT 93–99
[2025-03-03 07:58] LABS: IONIZED CALCIUM 4.3 MG/DL (4.5-5.3)
[2025-03-03 08:03] LABS: BASO # 0.0 10^3/uL (0.0-0.2); BASO % 0.2 % (0.0-1.0); EOS # 0.0 10^3/uL (0.0-0.5); EOS % 0.1 % (0.0-3.0); LYMPH # 1.2 10^3/uL (1.5-5.0); LYMPH % 6.9 % (24.0-44.0); MONO # 1.7 10^3/uL (0.0-0.8); MONO % 9.6 % (2.0-8.0); NEUTROPHILS # 14.6 10^3/uL (1.5-8.5); NEUTROPHILS % 82.6 % (36.0-66.0); PLATELET COUNT, AUTOMATED 233 10^3/uL (150-450)
[2025-03-03 08:35] LABS: ALT/SGPT 26.0 U/L (7.0-40); AST/SGOT 20.0 U/L (<34); CALCIUM LEVEL 9.0 MG/DL (8.3-10.6); CARBON DIOXIDE LEVEL 28.0 MMOL/L (20-31); CHLORIDE LEVEL 103.0 MMOL/L (98-107); CREATININE FOR GFR 0.96 MG/DL (0.70-1.30); GLOMERULAR FILTRATION RATE 79.9 (>35); MAGNESIUM LEVEL 2.0 MG/DL (1.8-2.4); PHOSPHORUS LEVEL 2.6 MG/DL (2.4-5.1); POTASSIUM SERUM 4.2 MMOL/L (3.5-5.1); SODIUM LEVEL 140.0 MMOL/L (136-145)
[2025-03-03] MEDS ORDERED: METHYLPHENIDATE 5 MG TAB PO SCH (09:00)
[2025-03-03] MEDS ORDERED: POTASSIUM CHLORIDE 10MEQ SR TABLET PO SCH (09:00)
[2025-03-03] MEDS: METHYLPHENIDATE 5 MG TAB PO SCH (09:00)
[2025-03-03] MEDS ORDERED: DOCUSATE SODIUM 100 MG CAPSULE PO SCH (09:00)
[2025-03-03] MEDS: POTASSIUM CHLORIDE 10% LIQ 20MEQ/15ML UDC PO SCH (09:09)
[2025-03-03] MEDS: DOCUSATE SOD LIQ 100 MG/10 ML UDC PO SCH (09:09)
[2025-03-03] MEDS: DONEPEZIL 5 MG TAB PO SCH (09:10)
[2025-03-03] MEDS: VENLAFAXINE **XR** 75MG CAPSULE PO SCH (09:11)
[2025-03-03] MEDS ORDERED: HEPARIN SOD 5000 UNITS/ML 1 ML VIAL/SYRINGE IV PRN (10:00)
[2025-03-03] MEDS ORDERED: HEPARIN DRIP 25,000 UNITS in IV 1 EA IV SCH (10:00)
[2025-03-03 10:59] LABS: PLATELET COUNT, AUTOMATED 252 10^3/uL (150-450)
[2025-03-03] MEDS: DABIGATRAN ETEXILATE 75 MG CAP PO SCH ×2 (11:36→22:00)
[2025-03-03] MEDS: IPRATROPIUM 0.5 MG/2.5 ML (0.02%) SOLN NEB INH PRN (13:09)
[2025-03-03] MEDS: ACETAMINOPHEN 500 MG TAB PO PRN (13:33)
[2025-03-03] MEDS: ACETAMINOPHEN 650 MG SUPP PR PRN (14:12)
[2025-03-03 14:35] LABS: ABG BASE EXCESS 1.4 (-2.0-2.0); ABG HCO3 24.8 MMOL/L (22.0-26.0); ABG O2 SATURATION 95.2 % (95.0-99.0); ABG PARTIAL PRESSURE CO2 35.7 mmHg (35.0-45.0); ABG PARTIAL PRESSURE O2 70.8 mmHg (75.0-100.0); ABG STANDARD HCO3 25.6 MMOL/L. (22.0-26.0); ABG TOTAL CO2 25.9 MMOL/L (23.0-31.0); ABG pH (ARTERIAL) 7.460 UNITS (7.350-7.450)
[2025-03-03] MEDS ORDERED: VANCOMYCIN HCL 1,000 MG in IV FLUID PLACE HOLDER 1 EA IV SCH (15:50)
[2025-03-03] MEDS: VANCOMYCIN HCL 1,750 MG, VIAL MATE ADAPTER 1 EACH in NS 500 ML IV ONE (19:04)
[2025-03-04] VITALS (8 sets, daily range): BP systolic 137–158; BP diastolic 65–96; TEMP 98.1–99; O2SAT 91–97
[2025-03-04 04:27] LABS: PLATELET COUNT, AUTOMATED 219 10^3/uL (150-450)
[2025-03-04 05:06] LABS: ALT/SGPT 35.0 U/L (7.0-40); AST/SGOT 47.0 U/L (<34); CALCIUM LEVEL 8.7 MG/DL (8.3-10.6); CARBON DIOXIDE LEVEL 29.0 MMOL/L (20-31); CHLORIDE LEVEL 104.0 MMOL/L (98-107); CREATININE FOR GFR 0.96 MG/DL (0.70-1.30); GLOMERULAR FILTRATION RATE 79.9 (>35); POTASSIUM SERUM 4.6 MMOL/L (3.5-5.1); SODIUM LEVEL 144.0 MMOL/L (136-145)
[2025-03-04] MEDS: VANCOMYCIN HCL 750 MG, VIAL MATE ADAPTER 1 EACH in NS 250 ML IV SCH (05:44)
[2025-03-04] MEDS: cefTRIAXone SOD 2 GM in DEXTROSE 5% (D5W) ADV/MINI-BAG 50 ML IV SCH (09:32)
[2025-03-04] MEDS ORDERED: ceFAZolin SODIUM 2 GM in DEXTROSE 5% (D5W) ADV/MINI-BAG 50 ML IV SCH (10:00)
[2025-03-04] MEDS: metroNIDAZOLE 500 MG in IV 1 EA IV SCH (10:20)
[2025-03-05 03:54] VITALS: BP 109/59; TEMP 97.2; O2SAT 96
[2025-03-05 12:00] VITALS: BP 126/72; TEMP 98.1; O2SAT 99
[2025-03-05] MEDS ORDERED: VARIBAR PUDDING 40% w/v 230ML TUBE As Ordered ONE (15:38)
[2025-03-05] MEDS ORDERED: BARIUM SULFATE 700 MG TABLET As Ordered ONE (15:39)
[2025-03-05] MEDS ORDERED: E-Z-PAQUE 96% w/w SUSP 176 GM BTL As Ordered ONE (15:39)
[2025-03-05] MEDS ORDERED: VARIBAR NECTAR 40% w/v 240ML SUSP BTL As Ordered ONE (15:39)
[2025-03-05] MEDS: CIPROFLOXACIN 0.3% OPHTH SOLN 2.5 ML OU SCH (16:48)
[2025-03-05] MEDS: POLYVINYL ALCOHOL OPHTH SOLN 15ML (LIQUITEARS) OU SCH (16:48)
[2025-03-05 19:45] VITALS: BP 173/85; TEMP 98.2; O2SAT 91
[2025-03-06 04:11] VITALS: BP 169/88; TEMP 98.2; O2SAT 96
[2025-03-06 09:10] LABS: PLATELET COUNT, AUTOMATED 256 10^3/uL (150-450)
[2025-03-06 12:00] VITALS: BP 150/70; TEMP 97.9; O2SAT 95
[2025-03-06 20:18] VITALS: BP 147/95; TEMP 98.1; O2SAT 94
[2025-03-07 03:40] VITALS: BP 124/72; TEMP 98.2; O2SAT 95
[2025-03-07] MEDS: VITAMIN A & D OINTMENT 42.5GM TOP PRN (21:02)
[2025-03-07 21:05] VITALS: BP 135/94; TEMP 98.1; O2SAT 92
[2025-03-08] MEDS: CEFDINIR 300 MG CAP PO SCH (08:23)
[2025-03-08 12:00] VITALS: BP 148/80; TEMP 98.1; O2SAT 93
[2025-03-08 15:55] VITALS: BP 142/82
[2025-03-08 19:53] VITALS: BP 153/99; TEMP 98.2; O2SAT 92
[2025-03-09 04:01] VITALS: BP 141/86; TEMP 98.1; O2SAT 92
[2025-03-09 08:00] VITALS: BP 136/80
[2025-03-09] MEDS ORDERED: AERO1MIS XX (08:14)
[2025-03-09] MEDS ORDERED: LEVALBUTEROL 1.25 MG 0.5ML CONCENTRATE NEB INH PRN (08:15)
[2025-03-09] MEDS ORDERED: IPRA2IN INH (08:18)
[2025-03-09] MEDS ORDERED: LEVA1.25 INH (08:23)
[2025-03-09] MEDS ORDERED: NEBU1EAC78 MC (08:23)
[2025-03-09 10:03] LABS: PLATELET COUNT, AUTOMATED 261 10^3/uL (150-450)
== END 2025-03-09 09:45 | disposition home health service (06) | DRG 698 ==
LOC: M ED 11:26 → M ED INP 15:23 → M MS5PR 19:05
PROVIDERS: ADMIT General Practice; ATTEND Student in an Organized Health Care Education/Training Program
DX: T83.518A Infection and inflammatory reaction due to other urinary catheter, initial encounter (principal); A41.9 Sepsis, unspecified organism; J69.0 Pneumonitis due to inhalation of food and vomit; I48.21 Permanent atrial fibrillation; N39.0 Urinary tract infection, site not specified; J98.11 Atelectasis; E87.20 Acidosis, unspecified; G91.2 (Idiopathic) normal pressure hydrocephalus; Z66 Do not resuscitate; L89.319 Pressure ulcer of right buttock, unspecified stage; L89.329 Pressure ulcer of left buttock, unspecified stage; G31.83 Neurocognitive disorder with Lewy bodies; F02.80 Dementia in other diseases classified elsewhere, unspecified severity, without behavioral disturbance, psychotic disturbance, mood disturbance, and anxiety; J84.10 Pulmonary fibrosis, unspecified; G20.A1 Parkinson's disease without dyskinesia, without mention of fluctuations; Z74.1 Need for assistance with personal care; R13.10 Dysphagia, unspecified; G47.33 Obstructive sleep apnea (adult) (pediatric); M54.9 Dorsalgia, unspecified; G89.29 Other chronic pain; M35.3 Polymyalgia rheumatica; I11.0 Hypertensive heart disease with heart failure; I50.9 Heart failure, unspecified; F41.9 Anxiety disorder, unspecified; F32.A Depression, unspecified; G47.00 Insomnia, unspecified; R33.9 Retention of urine, unspecified; Z98.41 Cataract extraction status, right eye; Z98.42 Cataract extraction status, left eye; Z86.73 Personal history of transient ischemic attack (TIA), and cerebral infarction without residual deficits; Z99.3 Dependence on wheelchair; Z79.899 Other long term (current) drug therapy

== ENCOUNTER → 2025-03-20 | Outpatient (REF) | payer MEDICARE, OTHER ==
[~2025-03-20] MED LIST changes: +AERO1MIS XX; +IPRA2IN INH; +LEVA1.25 INH; +NEBU1EAC78 MC; +NITR50CA51 PO
== END ==
LOC: M LAB REF 12:33
PROVIDERS: ATTEND Internal Medicine
DX: R19.7 Diarrhea, unspecified (principal)

== ENCOUNTER → 2025-04-24 | Outpatient (REF) | payer MEDICARE, OTHER ==
[2025-04-24 19:14] LABS: APPEARANCE, URINE CLOUDY (CLEAR); BACTERIA, URINE AUTO NEGATIVE (NEGATIVE); BILIRUBIN, URINE AUTO NEGATIVE (NEGATIVE); BLOOD, URINE BLOOD 3+ (NEGATIVE); GLUCOSE, URINE (UA) AUTO NEGATIVE (NEGATIVE); KETONE, URINE AUTO NEGATIVE (NEGATIVE); LEUKOCYTE ESTERASE, URINE AUTO 2+ (NEGATIVE); NITRITE, URINE AUTO NEGATIVE (NEGATIVE); PROTEIN, URINE AUTO 2+ mg/dL (NEGATIVE); RBC, URINE AUTO TNTC /HPF (0-3); SPECIFIC GRAVITY URINE AUTO 1.012 (1.002-1.035); SQUAMOUS EPITHELIAL CELL UR AU 0 /HPF (0-6); TRANSITIONAL EPITHELIAL AUTO 2 /HPF; UROBILINOGEN, URINE AUTO 0.2 mg/dL (0.0-2.0); WBC, URINE AUTO TNTC /HPF (0-3)
== END ==
LOC: M LAB REF 17:31
PROVIDERS: ATTEND Internal Medicine
DX: N39.0 Urinary tract infection, site not specified (principal)

== ENCOUNTER → 2025-06-06 | Outpatient (REF) | payer MEDICARE, OTHER ==
[2025-06-06 13:35] LABS: APPEARANCE, URINE CLEAR (CLEAR); BACTERIA, URINE AUTO NEGATIVE (NEGATIVE); BILIRUBIN, URINE AUTO NEGATIVE (NEGATIVE); BLOOD, URINE BLOOD NEGATIVE (NEGATIVE); GLUCOSE, URINE (UA) AUTO NEGATIVE (NEGATIVE); KETONE, URINE AUTO NEGATIVE (NEGATIVE); LEUKOCYTE ESTERASE, URINE AUTO TRACE (NEGATIVE); MUCUS, URINE SMALL (NEGATIVE); NITRITE, URINE AUTO NEGATIVE (NEGATIVE); PROTEIN, URINE AUTO NEGATIVE (NEGATIVE); RBC, URINE AUTO 7 /HPF (0-3); SPECIFIC GRAVITY URINE AUTO 1.011 (1.002-1.035); SQUAMOUS EPITHELIAL CELL UR AU 0 /HPF (0-6); UROBILINOGEN, URINE AUTO 0.2 mg/dL (0.0-2.0); WBC, URINE AUTO 5 /HPF (0-3)
== END ==
LOC: M LAB REF 13:14
PROVIDERS: ATTEND Urology
DX: N30.00 Acute cystitis without hematuria (principal)

== ENCOUNTER → 2025-06-28 | Outpatient (REF) | payer MEDICARE, OTHER ==
[2025-06-28 14:21] LABS: APPEARANCE, URINE HAZY (CLEAR); BACTERIA, URINE AUTO 2+ (NEGATIVE); BILIRUBIN, URINE AUTO NEGATIVE (NEGATIVE); BLOOD, URINE BLOOD 3+ (NEGATIVE); GLUCOSE, URINE (UA) AUTO NEGATIVE (NEGATIVE); KETONE, URINE AUTO NEGATIVE (NEGATIVE); LEUKOCYTE ESTERASE, URINE AUTO 3+ (NEGATIVE); MUCUS, URINE SMALL (NEGATIVE); NITRITE, URINE AUTO NEGATIVE (NEGATIVE); PROTEIN, URINE AUTO NEGATIVE (NEGATIVE); RBC, URINE AUTO 144 /HPF (0-3); SPECIFIC GRAVITY URINE AUTO 1.010 (1.002-1.035); SQUAMOUS EPITHELIAL CELL UR AU 2 /HPF (0-6); UROBILINOGEN, URINE AUTO 0.2 mg/dL (0.0-2.0); WBC, URINE AUTO 78 /HPF (0-3)
== END ==
LOC: M LAB REF 12:53
PROVIDERS: ATTEND Urology
DX: N30.00 Acute cystitis without hematuria (principal)